=== PATIENT | female | born 1945 | race Caucasian/White ===

== ENCOUNTER 2016-08-24 18:09 | Observation (INO) ==
--- NOTE | 2016-08-24 18:56 | Emergency Department Note ---
Disposition Clinical Impression: Chest pain Disposition: Admitted As Inpatient Condition: Fair Chest Pain HPI - General Chief Complaint: ED Chest Pain Stated Complaint: CP, SOB Time Seen by Provider: 08/24/16 18:54 Source: patient Limitations: no limitations Vital Signs Reviewed: Yes Nursing Notes Reviewed: Yes - History of Present Illness HPI Narrative: Ms. Kaye, a 71yo female, presents from home by EMS with CC: STEPHON. Onset 2 days ago and progressive with sterna chest burning intermittant throughout today. Past medical history of COPD, oxygen dependent on 3 L via nasal cannula. History of recurrent AE COPD, bronchitis, pneumonia. Dyspnea worsened with mild exertion. Nothing noted to improve or worsen her chest pain. Patient has never had a cardiac workup to risk stratify. Denies nausea, vomiting, radiation of chest pain, history of or ACS or CAD. PMH: COPD, HLD. Habits: remote hx smokine = 40+ pk-yr. Severity scale (1-10): 7 - Related Data Home Medications Medication Instructions Recorded Confirmed Albuterol Neb [Proventil Neb] 2.5 mg IH TID 02/07/15 08/24/16 Albuterol Sulfate [Albuterol 2 puff IH Q4HR PRN 02/07/15 08/24/16 Inhaler] Tiotropium [Spiriva] 18 mcg IH DAILY 02/07/15 08/24/16 Citalopram Hydrobromide [Celexa] 20 mg PO DAILY 05/09/15 08/24/16 Acetylcysteine 600 mg PO BID 09/16/15 08/24/16 [Q-Goormr-f-Cysteine] Ibandronate Sodium 150 mg PO QMONTH 02/16/16 08/24/16 Alprazolam [Xanax] 0.5 mg PO BID 08/24/16 08/24/16 Aspirin Enteric Coated [Aspirin EC] 81 mg PO DAILY 08/24/16 08/24/16 Atorvastatin [Lipitor] 10 mg PO HS 08/24/16 08/24/16 Fluticasone/Salmeterol [Advair 1 each IH BID 08/24/16 08/24/16 500-50 Diskus] Oxygen 3 l NS CONT 08/24/16 08/24/16 PredniSONE 5 mg PO DAILY 08/24/16 08/24/16 Previous Rx's Medication Instructions Recorded Theophylline Anhydrous [Theodur] 300 mg PO BID #60 tab.er.12h 02/23/16 Amlodipine [Norvasc] 10 mg PO DAILY #60 tablet 08/26/16 Allergies Allergy/AdvReac Type Severity Reaction Status Date / Time No Known Allergies Allergy Verified 02/16/16 11:39 All systems ED: reviewed and negative except as stated. Constitutional: Denies: fever, chills, weakness Cardiovascular: Reports: chest pain, dyspnea on exertion. Denies: palpitations , syncope Respiratory: Denies: cough, dyspnea, wheezes Gastrointestinal: Denies: abdominal pain, nausea, vomiting, diarrhea, constipation, hematemesis, melena, hematochezia Genitourinary: Denies: urgency, dysuria, frequency Musculoskeletal: Denies: back pain Neurological: Denies: headache, weakness, numbness Chest Pain PMH - Past Medical History Medical history: Reports: COPD Surgical history: Reports: appendectomy, cholecystectomy, hysterectomy Psychiatric history: Reports: anxiety, depression PEARL STRINGER history: Reports: no PEARL STRINGER history - Social History Smoking Status: Former smoker Alcohol use: Reports: none Drug use: Reports: none Physical Exam General: Patient is alert, oriented, and in no acute distress. HEENT: No facial asymmetry. Head is normocephalic and atraumatic. Trachea midline. Cardiovascular: Heart regular rate and rhythm without clicks, rubs, gallops, or murmurs. No JVD. PMI nondisplaced. 1+ bilateral pedal edema. Bilateral radial and dorsalis pedis pulses 2+. Chest pain not reproducible palpation. Respiratory: Symmetric chest rise with poor respiratory effort. Prolonged expiratory phase. Bilateral breath sounds are clear without wheezing, crackles , or rhonchi. Abdomen: Bowel sounds present normoactive x-4 quadrants. Abdomen is soft, nondistended, and nontender. No organomegaly noted. Psych: Patient's affect is appropriate for situation. - General Limitations: no limitations General appearance: alert Course Course Narrative: Patient received 4 baby aspirin and a single sublingual nitroglycerin in route by EMS. During the time of interview, patient denies any chest pain. Patient's troponin . Labwork otherwise unremarkable. EKG and CXR unremarkable. Patient remains high risk given her COPD, age, exertional dyspnea , and chest burning. She has never had a CP workup to appropriately risk stratify her. After discussing with the patient and my attending, through shared decision making, will bring the patient into the hospital for continued workup for ACS rule out. Spoke with the hospitalist, Dr. Mishra, who agrees to see the patient. Vital Signs Temperature 98.6 F 08/24/16 18:13 Pulse Rate 92 08/24/16 18:13 Respiratory Rate 18 08/24/16 18:13 Blood Pressure 155/95 08/24/16 18:13 O2 Sat by Pulse Oximetry 96 08/24/16 18:13 Temperature 97.6 F 08/26/16 07:15 Pulse Rate 68 08/26/16 07:15 Respiratory Rate 18 08/26/16 09:58 Blood Pressure 127/71 08/26/16 07:15 O2 Sat by Pulse Oximetry 98 08/26/16 09:58 Oxygen Delivery Oxygen Delivery Nasal Cannula Chest Pain - Medical Records Medical records reviewed: Yes I reviewed the patient's medical records. - Lab Data Lab results reviewed: Yes I reviewed the patient's lab results. Result diagrams: 08/25/16 01:08 08/25/16 01:08 Lab Results 08/24/16 08/24/16 08/24/16 Range/Units 19:27 19:27 19:27 WBC 10.6 (4.3-11.1) K/mcL RBC 4.73 (3.82-4.97) M/mcL Hgb 13.0 (11.5-15.4) g/dL Hct 41.4 (35.3-44.9) % MCV 87.5 (83.0-100.0) fL MCH 27.5 L (28.0-33.3) pg MCHC 31.4 L (31.6-35.5) g/dL RDW 14.8 H (11.5-14.5) % Plt Count 347 (140-400) K/mcL MPV 10.2 (9.4-12.4) fL Immature Gran % 1.0 (0-4) % Seg Neutrophils % 60.0 % Lymphocytes % 27.7 % Monocytes % 8.3 % Eosinophils % 2.2 % Basophils % 0.8 % Neutrophils # 6.4 (1.6-8.9) K/mcL Lymphocytes # 2.9 (0.6-4.6) K/mcL Monocytes # 0.9 (0.0-1.3) K/mcL Eosinophils # 0.2 (0.0-0.6) K/mcL Basophils # 0.1 (0.0-0.2) K/mcL PT 11.5 (9.4-12.1) Seconds INR 1.1 APTT 29.5 (26.0-36.0) Seconds Sodium 144 (136-145) mEq/L Potassium 4.8 H (3.5-4.5) mEq/L Chloride 107 (98-109) mEq/L Carbon Dioxide 27 (19-29) mEq/L BUN 24 H (7-20) mg/dL Creatinine 1.17 H (0.57-1.11) mg/dL Est GFR ( Amer) 55 L (> 60) Est GFR (Non-Af Amer) 46 L (> 60) BUN/Creatinine Ratio 21 (6-26) Glucose 100 H (70-99) mg/dL Calculated Osmolality 302 H (280-300) Calcium 10.1 (8.6-10.8) mg/dL Troponin I (0-0.03) ng/mL 08/24/16 Range/Units 19:27 WBC (4.3-11.1) K/mcL RBC (3.82-4.97) M/mcL Hgb (11.5-15.4) g/dL Hct (35.3-44.9) % MCV (83.0-100.0) fL MCH (28.0-33.3) pg MCHC (31.6-35.5) g/dL RDW (11.5-14.5) % Plt Count (140-400) K/mcL MPV (9.4-12.4) fL Immature Gran % (0-4) % Seg Neutrophils % % Lymphocytes % % Monocytes % % Eosinophils % % Basophils % % Neutrophils # (1.6-8.9) K/mcL Lymphocytes # (0.6-4.6) K/mcL Monocytes # (0.0-1.3) K/mcL Eosinophils # (0.0-0.6) K/mcL Basophils # (0.0-0.2) K/mcL PT (9.4-12.1) Seconds INR APTT (26.0-36.0) Seconds Sodium (136-145) mEq/L Potassium (3.5-4.5) mEq/L Chloride (98-109) mEq/L Carbon Dioxide (19-29) mEq/L BUN (7-20) mg/dL Creatinine (0.57-1.11) mg/dL Est GFR ( Amer) (> 60) Est GFR (Non-Af Amer) (> 60) BUN/Creatinine Ratio (6-26) Glucose (70-99) mg/dL Calculated Osmolality (280-300) Calcium (8.6-10.8) mg/dL Troponin I 0.01 (0-0.03) ng/mL - EKG Data EKG attestation: Yes I reviewed and interpreted this EKG. EKG results narrative: EKG dated on August 2016 interpreted as sinus rhythm with a rate of 64. Normal intervals [place] 137, QRS 78, QT/QTC 390/399. Left axis with left anterior fascicular block. Rare PVC. Nonspecific ST-T changes. Compared to previous dated 02/16/2016 showing no acute ischemic changes a comparison. Attestation Statement - Attestation Attestation: I examined this patient and my medical decision-making was reviewed with the Resident Physician. I agree with the documented findings, disposition and treatment plan as described except to the extent set forth below. Chest pain free at time of admission.
[2016-08-24 19:38] LABS: Basophils # 0.1 K/mcL (0.0-0.2); Basophils % 0.8 %; Eosinophils # 0.2 K/mcL (0.0-0.6); Eosinophils % 2.2 %; Hematocrit 41.4 % (35.3-44.9); Lymphocytes # 2.9 K/mcL (0.6-4.6); Lymphocytes % 27.7 %; Mean Corpuscular HGB Conc 31.4 g/dL (31.6-35.5); Mean Corpuscular Hemoglobin 27.5 pg (28.0-33.3); Mean Corpuscular Volume 87.5 fL (83.0-100.0); Mean Platelet Volume 10.2 fL (9.4-12.4); Monocytes # 0.9 K/mcL (0.0-1.3); Monocytes % 8.3 %; Neutrophils # 6.4 K/mcL (1.6-8.9); Platelet Count 347 K/mcL (140-400); Red Blood Count 4.73 M/mcL (3.82-4.97); Red Cell Distribution Width 14.8 % (11.5-14.5)
[2016-08-24 19:42] LABS: INR 1.1; Prothrombin Time 11.5 Seconds (9.4-12.1)
[2016-08-24 19:44] LABS: Activated Partial Thrombo Time 29.5 Seconds (26.0-36.0)
[2016-08-24 19:46] LABS: Calcium 10.1 mg/dL (8.6-10.8); Potassium 4.8 mEq/L (3.5-4.5)
[2016-08-24] MEDS ORDERED: Nitroglycerin 0.4 MG TAB.SUBL SL PRN (20:43)
--- NOTE | 2016-08-24 23:04 | Internal Med History&Physical ---
Date of Encounter: 08/24/16 Time of Encounter: 10:30 Assessment and Plan (1) Chest pain Current visit: Yes Status: Acute History of precordial chest pain. Burning type. Could be from gastroesophageal reflux disease. However given patient's age and presence of similar symptoms in the past, she does have increased risk for coronary artery disease. Will trend troponins. Telemetry. Repeat EKG in the morning. Stress test if troponins are negative. Qualifiers: Chest pain type: precordial pain Qualified Code(s): R07.2 - Precordial pain (2) GERD (gastroesophageal reflux disease) Current visit: Yes Status: Acute Patient with symptoms suggestive of gastroesophageal reflux disease. Will treat with PPI. Qualifiers: Esophagitis presence: esophagitis presence not specified Qualified Code(s) : K21.9 - Gastro-esophageal reflux disease without esophagitis (3) COPD (chronic obstructive pulmonary disease) Current visit: No Status: Chronic Patient with COPD and chronic hypoxia on home oxygen. Not in acute exacerbation. Will use bronchodilator nebs as needed. Qualifiers: COPD type: emphysema Emphysema type: panlobular Qualified Code(s): J43.1 - Panlobular emphysema (4) HTN (hypertension) Current visit: Yes Status: Chronic Blood pressure is elevated. Patient does not appear to be on medications at home. Will start amlodipine. Qualifiers: Hypertension type: essential hypertension Qualified Code(s): I10 - Essential (primary) hypertension (5) Anxiety Current visit: No Status: Chronic Continue alprazolam and citalopram. Internal Medicine - H&P: HPI Chief complaint: Chest pain, shortness of breath Admitted From: Emergency Dept Plans for Post Hospital Care: Home History of present illness: Ms. Kaye is a 71 year old female with history of COPD and chronic hypoxic respiratory failure on home oxygen at 3 L/m presented to the ER with complaints of chest pain. Her symptoms have been going on since this morning. Pain is intermittent and located in the central chest region and feels like a burning sensation that radiates up towards into her chest. It is associated with abdominal bloating. Patient also has chronic shortness of breath due to her COPD. She has been on antibiotics since Monday for possible bronchitis. Denies any nausea or vomiting. No hematemesis. She does get occasional palpitations. No fever or chills or night sweats. She has had similar episodes of chest pain before but they have not lasted this long. Past Med Surg Social Fam HX - Past Medical History Attestation: Yes The following information was validated with the patient. Medical history: COPD Psychiatric history: anxiety, depression - Past Surgical History Surgical History: appendectomy, cholecystectomy, hysterectomy - Social History Smoking Status: Former smoker Smokeless Tobacco Status: No Alcohol use: none Drug use: none - Family History Mother Adopted: No Family Member Ethnicity: Non- Living Status: Hx Family Cardiac Disorders: No Hx Family Respiratory Disorders: No Hx Family Cancer: Yes Hx Family GI Disorders: No Hx Family Endocrine Disorder: No Hx Family Neuromuscular Disorders: No Hx Family Neurologic Disorders: No Hx Family HEENT Disorders: No Hx Family Autoimmune Disorders: No Father Living Status: Hx Family Cancer: Yes Brother Adopted: No Living Status: Hx Family Endocrine Disorder: Yes (dm) Internal Medicine - H&P: Meds Albuterol Neb [Proventil Neb] 2.5 mg IH TID 02/07/15 [History] Albuterol Sulfate [Albuterol Inhaler] 2 puff IH Q4HR PRN 02/07/15 [History] Tiotropium [Spiriva] 18 mcg IH DAILY 02/07/15 [History] Citalopram Hydrobromide [Celexa] 20 mg PO DAILY 05/09/15 [History] Acetylcysteine [M-Ztzryu-c-Cysteine] 600 mg PO BID 09/16/15 [History] Ibandronate Sodium 150 mg PO QMONTH 02/16/16 [History] Theophylline Anhydrous [Theodur] 300 mg PO BID #60 tab.er.12h 02/23/16 [Rx] Alprazolam [Xanax] 0.5 mg PO BID 08/24/16 [History] Aspirin Enteric Coated [Aspirin EC] 81 mg PO DAILY 08/24/16 [History] Atorvastatin [Lipitor] 10 mg PO HS 08/24/16 [History] Fluticasone/Salmeterol [Advair 500-50 Diskus] 1 each IH BID 08/24/16 [History] Oxygen 3 l NS CONT 08/24/16 [History] PredniSONE 5 mg PO DAILY 08/24/16 [History] Allergies No Known Allergies Allergy (Verified 02/16/16 11:39) All Systems PM: A 10-system review of systems was performed and is negative for pertinent findings except as documented above in the HPI. - Constitutional Constitutional: no chills, no fever(s), no night sweats - EENT Eyes: no change in vision, no discharge, no pain, no photophobia Ears: no ear discharge, no ear pain, no tinnitus Nose, mouth and throat: no dysphagia, no nasal discharge, no neck pain, no sore throat - Cardiovascular Cardiovascular ROS IM: chest pain, no diaphoresis, no dyspnea, no lightheadedness, no palpitations, no syncope - Respiratory Respiratory: cough, dyspnea on exertion, no dyspnea, no wheezing, no excessive phlegm production - Gastrointestinal Gastrointestinal: belching, no abdominal pain, no diarrhea, no hematemesis, no hematochezia, no melena, no nausea, no vomiting - Genitourinary Genitourinary: no change in urinary stream, no dysuria, no flank pain, no hematuria - Musculoskeletal Musculoskeletal ROS IM: no numbness, no tingling - Integumentary Integumentary IM: no rash, no unusual bruising - Neurological Neurological ROS: no confusion, no convulsions, no focal weakness, no numbness, no tingling, no tremor(s) - Hematologic/Lymphatic Hematologic/Lymphatic: no easy bruising - Constitutional Vitals: Temp Pulse Resp BP Pulse Ox 97.8 F 66 12 174/88 96 08/24/16 22:05 08/24/16 22:05 08/24/16 22:05 08/24/16 22:05 08/24/16 22:05 General appearance: Present: cooperative, mild distress, A&O X 3, pleasant, answers questions appropriately - Eye Eye exam: Present: EOMI, PERRL, conjuntiva pink, sclera anicteric - Neck Neck exam general surgery: Present: supple, trachea midline. Absent: lymphadenopathy - Respiratory Respiratory exam: Present: CTAB, prolonged expiratory phase. Absent: accessory muscle use, rales, rhonchi, wheezes - Cardiovascular Cardiovascular exam: Present: RRR, +S1, +S2. Absent: diastolic murmur, gallop, rubs, systolic murmur - GI/Abdominal GI/Abdominal exam: Present: normal bowel sounds, soft, no peritoneal signs. Absent: distended, tenderness - Extremities Exam Extremities exam: Present: warm, radial pulses palpable and symetrical. Absent : calf tenderness, cyanotic, pedal edema - Neurological Exam Neurological exam: Present: alert, CN II-XII intact, oriented X3, no focal deficits, strengths equal and symetr throughout. Absent: facial droop, speech deficit - Skin Skin exam: Present: dry, intact Internal Med - H&P Results - Labs CBC & Chem 7: 08/24/16 19:27 08/24/16 19:27 - EKG Data -: EKG Interpreted by Myself EKG shows normal: sinus rhythm - EKG Data Interpretation IM: normal EKG - Impressions Chest x-ray showed COPD changes without any infiltrates - Attending Attestation This document has been at least partially created by [employer] recognition technology by Dr. Hickman. Errors in grammar, wording or other phrases may exist. If errors are found after the documentation is signed, they will be addressed individually in the addendum section of this document when appropriate.
[2016-08-24] MEDS ORDERED: Ipratropium/Albuterol Neb 3 ML IH PRN (23:11)
[2016-08-24] MEDS ORDERED: Mag Hydrox/Al Hydrox/Simeth 30 ML UDC PO PRN (23:37)
[2016-08-24] MEDS: amLODIPine 5 MG TABLET PO SCH (23:57)
[2016-08-24] MEDS: 0.9 % Sodium Chloride 1,000 ML IVC SCH (23:57)
[2016-08-25 01:26] LABS: Basophils # 0.1 K/mcL (0.0-0.2); Basophils % 0.8 %; Eosinophils # 0.5 K/mcL (0.0-0.6); Eosinophils % 4.1 %; Hematocrit 37.6 % (35.3-44.9); Hemoglobin 12.1 g/dL (11.5-15.4); Immature Granulocytes % 0.8 % (0-4); Lymphocytes # 3.6 K/mcL (0.6-4.6); Lymphocytes % 31.4 %; Mean Corpuscular HGB Conc 32.2 g/dL (31.6-35.5); Mean Corpuscular Hemoglobin 28.5 pg (28.0-33.3); Mean Corpuscular Volume 88.7 fL (83.0-100.0); Mean Platelet Volume 10.4 fL (9.4-12.4); Monocytes # 1.1 K/mcL (0.0-1.3); Monocytes % 9.2 %; Neutrophils # 6.1 K/mcL (1.6-8.9); Platelet Count 310 K/mcL (140-400); Red Blood Count 4.24 M/mcL (3.82-4.97); Red Cell Distribution Width 14.8 % (11.5-14.5); Segmented Neutrophils % 53.7 %
[2016-08-25 01:43] LABS: BUN/Creatinine Ratio 26 (6-26); Blood Urea Nitrogen 24 mg/dL (7-20); Calcium 9.7 mg/dL (8.6-10.8); Carbon Dioxide 25 mEq/L (19-29); Chloride 107 mEq/L (98-109); Chol/HDL Ratio 3.2 (0-4.9); Cholesterol 137 mg/dL (< 200); Glucose 115 mg/dL (70-99); HDL Cholesterol 43 mg/dL (40-59); LDL Cholesterol,Calculated 55 mg/dL (0-99); Osmolality,Calculated 297 (280-300); Sodium 141 mEq/L (136-145); Triglycerides 195 mg/dL (< 150); eGFR For African Americans > 60 (> 60); eGFR For Non-African Americans 60 (> 60)
[2016-08-25] MEDS: Pantoprazole 40 MG VIAL IVP SCH ×2 (03:48→18:04)
[2016-08-25] MEDS ORDERED: Regadenoson 0.4 MG/5 ML SYRINGE IVP ONE (06:37)
[2016-08-25] MEDS: Tiotropium 18 MCG inhalation IH SCH (08:20)
[2016-08-25] MEDS: predniSONE 5 MG TABLET PO SCH (10:40)
[2016-08-25] MEDS: amLODIPine 5 MG TABLET PO SCH (10:40)
[2016-08-25] MEDS: Aspirin 81 MG TAB.CHEW PO SCH (10:40)
[2016-08-25] MEDS: ALPRAZolam 1 MG TABLET PO SCH ×2 (10:40→21:02)
[2016-08-25] MEDS: *HR* Acetylcysteine 20% 600 MG/3 ML ORAL SYRINGE PO SCH ×2 (10:40→21:02)
--- NOTE | 2016-08-25 10:49 | Electrocardiograph Report ---
[address] [place] [address] Test Date: 2016-08-24 Pat Name: Kimberly Kaye Department: 103 Room: 3B46 Gender: F Liquefaction Supervisor: : 1945 Requested By: Abrahan Jordan Order Number: [id number] Reading MD: Kumar Ray MD Measurements Intervals [place] Rate: 64 P: 36 CA: 137 QRS: -48 QRSD: 78 T: 66 QT: 390 QTc: 399 Interpretive Statements SINUS RHYTHM WITH OCCASIONAL SUPRAVENTRICULAR PREMATURE COMPLEXES LEFT ANTERIOR FASCICULAR BLOCK Poor R wave progression BASELINE ARTIFACT Electronically Signed On 08-25-2016 10:47:30 EST by Kumar Ray MD
--- NOTE | 2016-08-25 11:10 | Electrocardiograph Report ---
[address] [place] [address] Test Date: 2016-08-25 Pat Name: Kimberly Kaye Department: 113 Room: 3B46 Gender: F Bisque Cleaner: : 1945 Requested By: Mary Beth Hickman Order Number: [id number] Reading MD: Kumar Ray MD Measurements Intervals [place] Rate: 60 P: 49 NH: 125 QRS: -8 QRSD: 91 T: 83 QT: 504 QTc: 504 Interpretive Statements SINUS RHYTHM WITH SINUS ARRHYTHMIA PROLONGED QT INTERVAL Electronically Signed On 08-25-2016 11:08:45 EST by Kumar Ray MD
--- NOTE | 2016-08-25 11:23 | Nuclear Medicine Stress Report ---
Regadenoson Nuclear Stress Name: Kimberly Kaye Date of Study: 08/25/2016 Date: 1945 Ht: 66.0 in Medical Record#: [id number] Age: 71 Wt: 166.0 lb Gender: Female Order #: [id number] Location: [facility] Room: [facility] [place] Supervising Provider: Artem Matta CNP Reading Physician: Cedrick Strickland MD, [facility] Ordering Physician: Brisa Del Cid CNP Primary Care Physician: Ronel Arce MD Stress Technologist: Allie Huber SAL[employer],[facility] [place] Breaker Layer: James Henriquez Indications: Shortness of breath, Chest Pain Impression: No significant ECG changes with regadenoson. Gated LVEF > 70%. Perfusion imaging was negative for ischemia or infarct. History: Hypertension Hypercholesteremia Stress Test Summary: Stress Test Type: Pharmacologic Regadenoson 0.4mg/5ml given IV Baseline Information: Initial Heart Rate: 63 Blood Pressure: 134/80 Stress Information: Test Terminated Due to (primary): As per protocol Maximum Blood Pressure: 128/56 Maximum Heart Rate: 93 Percent Maximum Heart Rate Achieved: 62 Double Product: 13240 Symptoms: Shortness of breath Nuclear Summary: SPECT myocardial perfusion imaging using Tc99m Sestamibi given intravenously was performed at rest and following cardiac stress testing. The resting images were obtained following initial dose of 11.9 mCi. Following stress an additional dose of 35.3 mCi was given at peak exercise or 30 seconds post regadenoson infusion. Findings: Stress Note * Resting ECG demonstrated normal sinus rhythm. * No baseline arrhythmias were noted. * Patient had no chest pain during stress. * No arrhythmias were noted during stress. * No significant ECG changes with regadenoson. Hemodynamic responses * Normal hemodynamic responses to pharmacologic stress. Study Quality * Study quality is good. Gated EF > 70% * Gated LVEF > 70%. Left Ventricle * The left ventricle is not dilated. * Normal Segmental Perfusion in rest. * Normal segmental perfusion in stress. TID * No evidence of transient ischemic dilatation. Updated by Cedrick Strickland MD, [facility] on 08/25/2016 11:18:14 AM electronically signed on 08/25/2016 11:18:33 AM with status of Final
[2016-08-25] MEDS ORDERED: Albuterol 2.5 MG/3 ML NEBULIZER ONE (11:41)
[2016-08-25] MEDS: Albuterol 2.5 MG/3 ML NEBULIZER IH SCH ×3 (11:42→23:16)
[2016-08-25] MEDS: 0.9 % Sodium Chloride 1,000 ML IVC SCH ×2 (13:10→23:52)
--- NOTE | 2016-08-25 15:26 | Internal Med Progress Note ---
Date of Encounter: 08/25/16 Time of Encounter: 12:00 - Assessment and plan (1) Chest pain Current Visit: Yes Status: Acute Assessment and plan: Patient complaining of burning to her epigastric area and mild chest pain. She denies shortness of breath above her norm. Chest x-ray consistent with chronic COPD. Troponins negative. Stress test negative for ischemia or infarct and revealed an ejection fraction greater than 70%. Acute coronary syndrome ruled out. Patient had an echocardiogram on 04/18/16 which revealed ejection fraction 65%, mild LVH, mild diastolic dysfunction and was otherwise unremarkable. Patient also had carotid duplex on 04/18/16 with right sided minimal plaque, left side 60-79% stenosis with recommendation to repeat a scan in one year. Unclear etiology for chest pain at this time. She denies shortness of breath above her norm. Chest pain is mildly reproducible with palpation. Possible epigastric etiology however the patient is tolerating a regular diet and can follow up outpatient if further investigation is warranted. We will perform viral panel studies. Qualifiers: Chest pain type: precordial pain Qualified Code(s): R07.2 - Precordial pain (2) GERD (gastroesophageal reflux disease) Current Visit: Yes Status: Chronic Qualifiers: Esophagitis presence: esophagitis presence not specified Qualified Code(s) : K21.9 - Gastro-esophageal reflux disease without esophagitis (3) HTN (hypertension) Current Visit: Yes Status: Chronic Assessment and plan: Borderline hypertensive since presentation. Patient is not on any antihypertensive medications at home, amlodipine has been initiated. We will continue to trend. Qualifiers: Hypertension type: essential hypertension Qualified Code(s): I10 - Essential (primary) hypertension (4) Acute bronchitis Current Visit: No Status: Acute Assessment and plan: Respiratory viral panel pending. Patient on 3 L per nasal cannula continuously at home, no increased need for oxygen at this time. Qualifiers: Bronchitis organism: other organism Qualified Code(s): J20.8 - Acute bronchitis due to other specified organisms (5) COPD (chronic obstructive pulmonary disease) Current Visit: No Status: Chronic Assessment and plan: No acute exacerbation. Patient denies shortness of breath above her norm. 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 On examination, he is resting supine in bed. Patient states she feels fatigued. Patient stating "it is not my lungs this time and must be my heart." Patient complaining of epigastric burning and mild chest pain. She states she has had a regular appetite. - Constitutional Vitals: Temp Pulse Resp BP Pulse Ox 97.5 F L 66 16 160/75 92 L 08/25/16 10:49 08/25/16 10:49 08/25/16 11:45 08/25/16 10:49 08/25/16 11:45 General appearance: Present: cooperative, mild distress (chronic dyspnea), A&O X 3, pleasant, answers questions appropriately - Head Head exam: Present: atraumatic, normocephalic - Eye Eye exam: Present: PERRL, conjuntiva pink, sclera anicteric Pupils: Present: PERRL - Neck Neck exam general surgery: Present: supple, trachea midline. Absent: lymphadenopathy - Respiratory Respiratory exam: Present: accessory muscle use, decreased breath sounds, respiratory distress (chronic; mild). Absent: CTAB, rales, rhonchi, wheezes - Cardiovascular Cardiovascular exam: Present: RRR, +S1, +S2. Absent: diastolic murmur, gallop, rubs, systolic murmur - GI/Abdominal GI/Abdominal exam: Present: normal bowel sounds, soft, tenderness (epigastric), no peritoneal signs. Absent: distended - Extremities Exam Extremities exam: Present: warm, radial pulses palpable and symetrical. Absent : calf tenderness, cyanotic, pedal edema - Neurological Exam Neurological exam: Present: alert, CN II-XII intact, normal gait, oriented X3, no focal deficits, strengths equal and symetr throughout. Absent: pronater drift, facial droop, speech deficit - Skin Skin exam: Present: dry, intact, pallor, warm Internal Medicine: Result - Labs CBC & Chem 7: 08/25/16 01:08 08/25/16 01:08 Labs: Short CBC 08/25/16 Range/Units 01:08 WBC 11.4 H (4.3-11.1) K/mcL Hgb 12.1 (11.5-15.4) g/dL Hct 37.6 (35.3-44.9) % Plt Count 310 (140-400) K/mcL Neutrophils # 6.1 (1.6-8.9) K/mcL BMP 08/25/16 01:08 Sodium 141 Potassium 4.0 Chloride 107 Carbon Dioxide 25 BUN 24 H Creatinine 0.93 Glucose 115 H Calcium 9.7 Cardiac Enzymes 08/25/16 Range/Units 01:08 Troponin I 0.00 (0-0.03) ng/mL - ABG Interpretation ABG results: PT/INR, D-dimer PT 11.5 Seconds (9.4-12.1) 08/24/16 19:27 Consult Discharge Plan - Plan Referrals: Ronel Arce MD [Primary Care Provider] -
[2016-08-25] MEDS ORDERED: NON-FORMULARY MEDICATION 1 EACH EACH (Oxygen [Oxygen] 3 L) NS SCH (15:45)
[2016-08-25] MEDS ORDERED: *HR* Promethazine 25 MG/ML VIAL IVP PRN (15:48)
[2016-08-25] MEDS ORDERED: Ondansetron 4 MG/2 ML VIAL IVP PRN (15:48)
[2016-08-25 17:46] LABS: Bilirubin,Urine Negative (Negative); Blood,Urine Negative (Negative); Clarity,Urine Clear (Clear); Color,Urine Yellow (Yellow); Glucose,Urine (UA) Normal (Normal); Ketones,Urine Negative (Negative); Leukocyte Esterase,Urine Negative (Negative); Nitrite,Urine Negative (Negative); Protein,Urine Negative (Neg-Trace); Specific Gravity,Urine 1.009 (1.010-1.025); Urobilinogen,Urine Normal (Normal)
[2016-08-25] MEDS ORDERED: Pantoprazole 40 MG VIAL IVP SCH (23:37)
[2016-08-26] MEDS: Pantoprazole 40 MG VIAL IVP SCH (06:12)
[2016-08-26 07:16] VITALS: BP 127/71
[2016-08-26 08:38] LABS: Adenovirus Not Detected (Not Detect); Bordetella Pertussis Not Detected (Not Detect); Chlamydophila pneumoniae Not Detected (Not Detect); Coronavirus 229E Not Detected (Not Detect); Coronavirus HKU1 Not Detected (Not Detect); Coronavirus NL63 Not Detected (Not Detect); Coronavirus OC43 Not Detected (Not Detect); Human Metapneumovirus Not Detected (Not Detect); Human Rhinovirus/Enterovirus Not Detected (Not Detect); Influenza A Subtype 2009 H1 Not Detected (Not Detect); Influenza A Untypeable Not Detected (Not Detect); Influenza B Not Detected (Not Detect); Mycoplasma pneumoniae Not Detected (Not Detect); Parainfluenza Virus 1 Not Detected (Not Detect); Parainfluenza Virus 2 Not Detected (Not Detect); Parainfluenza Virus 3 Not Detected (Not Detect); Parainfluenza Virus 4 Not Detected (Not Detect); Respiratory Syncytial Virus Not Detected (Not Detect)
[2016-08-26] MEDS: 0.9 % Sodium Chloride 1,000 ML IVC SCH (09:49)
[2016-08-26] MEDS: ALPRAZolam 1 MG TABLET PO SCH (09:50)
[2016-08-26] MEDS: amLODIPine 5 MG TABLET PO SCH (09:51)
[2016-08-26] MEDS: Aspirin 81 MG TAB.CHEW PO SCH (09:51)
[2016-08-26] MEDS: predniSONE 5 MG TABLET PO SCH (09:51)
[2016-08-26] MEDS: *HR* Acetylcysteine 20% 600 MG/3 ML ORAL SYRINGE PO SCH (09:58)
[2016-08-26] MEDS: Albuterol 2.5 MG/3 ML NEBULIZER IH SCH (09:58)
[2016-08-26] MEDS: Tiotropium 18 MCG inhalation IH SCH (09:58)
--- NOTE | 2016-08-26 10:18 | Discharge Summary ---
Date of Encounter: 08/26/16 Time of Encounter: 09:00 - Discharge Diagnosis (1) Chest pain Priority: Primary Status: Resolved Comments: Patient denied chest pain or shortness of breath above her norm on day of discharge. Chest x-ray consistent with chronic COPD. Troponins negative. Stress test negative for ischemia or infarct and revealed an ejection fraction greater than 70%. Acute coronary syndrome ruled out. Patient had an echocardiogram on 04/18/16 which revealed ejection fraction 65%, mild LVH, mild diastolic dysfunction and was otherwise unremarkable. Patient also had carotid duplex on 04/18/16 with right sided minimal plaque, left side 60-79% stenosis with recommendation to repeat a scan in one year. Followup outpatient. Qualifiers: Chest pain type: precordial pain Qualified Code(s): R07.2 - Precordial pain (2) GERD (gastroesophageal reflux disease) Priority: Secondary Status: Chronic Qualifiers: Esophagitis presence: esophagitis presence not specified Qualified Code(s) : K21.9 - Gastro-esophageal reflux disease without esophagitis (3) HTN (hypertension) Priority: Secondary Status: Chronic Comments: Borderline hypertensive during the first day of her admission. She was not on any antihypertensive medications at home and was started on amlodipine- normotensive on day of discharge. Recommend daily blood pressure checks at home , keeping a log, and following up outpatient. Qualifiers: Hypertension type: essential hypertension Qualified Code(s): I10 - Essential (primary) hypertension (4) Acute bronchitis Priority: Primary Status: Acute Qualifiers: Bronchitis organism: other organism Qualified Code(s): J20.8 - Acute bronchitis due to other specified organisms (5) COPD (chronic obstructive pulmonary disease) Priority: Secondary Status: Chronic Comments: No acute exacerbation Qualifiers: COPD type: emphysema Emphysema type: unspecified Qualified Code(s): J43.9 - Emphysema, unspecified (6) DVT prophylaxis Priority: Primary Status: Acute Comments: IPC's ordered while admitted (7) Anxiety Priority: Secondary Status: Chronic (8) Chronic respiratory failure Priority: Secondary Status: Chronic Qualifiers: Respiratory failure complication: hypoxia Qualified Code(s): J96.11 - Chronic respiratory failure with hypoxia (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 Comments: TSH normal (10) ARNOLDO (acute kidney injury) Priority: Primary Status: Resolved - Discharge Medications Prescriptions: Amlodipine [Norvasc] 10 mg PO DAILY #60 tablet Home Medications: Albuterol Neb [Proventil Neb] 2.5 mg IH TID 02/07/15 [History] Albuterol Sulfate [Albuterol Inhaler] 2 puff IH Q4HR PRN 02/07/15 [History] Tiotropium [Spiriva] 18 mcg IH DAILY 02/07/15 [History] Citalopram Hydrobromide [Celexa] 20 mg PO DAILY 05/09/15 [History] Acetylcysteine [R-Bdudhf-v-Cysteine] 600 mg PO BID 09/16/15 [History] Ibandronate Sodium 150 mg PO QMONTH 02/16/16 [History] Theophylline Anhydrous [Theodur] 300 mg PO BID #60 tab.er.12h 02/23/16 [Rx] Alprazolam [Xanax] 0.5 mg PO BID 08/24/16 [History] Aspirin Enteric Coated [Aspirin EC] 81 mg PO DAILY 08/24/16 [History] Atorvastatin [Lipitor] 10 mg PO HS 08/24/16 [History] Fluticasone/Salmeterol [Advair 500-50 Diskus] 1 each IH BID 08/24/16 [History] Oxygen 3 l NS CONT 08/24/16 [History] PredniSONE 5 mg PO DAILY 08/24/16 [History] Amlodipine [Norvasc] 10 mg PO DAILY #60 tablet 08/26/16 [Rx] Allergies/Adverse Reactions: Allergies No Known Allergies Allergy (Verified 02/16/16 11:39) Procedures/tests Complete & Pending: Procedures Performed prior 72 hours Category Date Time Status NM chuyita perf SPECT multi [NM] Routine Exams 08/24/16 23:11 Taken SP pharm nuclear stress Routine Y 08/25/16 07:45 Completed Date of admission: 08/24/16 20:55 Primary care physician: Ronel Arce Discharging clinician: Brisa Del Cid Anticipated date of discharge: 08/26/16 - Patient Status Disposition: Home, Self-Care Condition: Fair Functional capacity at discharge: independent ambulation Overall status at discharge: patient is back to baseline - Discharge Instructions Follow Up With: Ronel Arce MD [Primary Care Provider] - 09/02/16 10:45 am Additional Instructions: Follow-up with primary care provider as scheduled - Diet and Activity Activity: increase activity as tolerated Diet: low fat, low cholesterol, low salt diet Hospital course: Ms. Kaye is a 71 year old female with past medical history of advanced COPD on 3 L per nasal cannula continuously at home, anxiety, depression, status post appendectomy, cholecystectomy, hysterectomy, former tobacco abuse. Patient presented to the emergency department with a chief complaint of chest pain. Patient stating symptoms started on the morning of presentation. She stated the pain was intermittent and located centrally in her chest and felt like a burning sensation that radiates up into her chest. Associated symptoms include abdominal bloating. Patient denied shortness of breath above her norm. Patient stating she will have been on antibiotics since the Monday prior to presentation for possible bronchitis. She denied any nausea or vomiting or any hematemesis. Patient stating she has had chest pain like this before but has not lasted this long. Workup in the emergency department unremarkable other than hypertension. Chest x-ray consistent with chronic COPD. Patient was admitted to the hospitalist service for further evaluation and management. Patient had been hypertensive since presentation to the hospital and she was started on amlodipine as she is not on any antihypertensive medications at home. Troponins were negative. Patient had a nuclear stress test was negative for ischemia or infarct and revealed an ejection fraction greater than 70%. ACS ruled out. Patient had an echocardiogram on 04/18/16 which revealed ejection fraction 65%, mild LVH, mild diastolic dysfunction and was otherwise unremarkable. Patient also had carotid duplex on 04/18/16 with right sided minimal plaque, left side 60-79% stenosis with recommendation to repeat a scan in one year. Patient denies shortness of breath above her norm throughout this admission and she did not require supplemental oxygenation above her norm. Respiratory viral panel negative. Urinalysis negative. Patient had mild acute kidney injury upon presentation which resolved suggestive of mild dehydration upon presentation. Patient was able to tolerate a regular diet while admitted. She was discharged home in stable condition with close outpatient follow-up recommended. ITS Impressions Chest X-Ray 08/24/16 18:55 IMPRESSION: COPD. No acute abnormalities D/ / Arturo Hamm MD / Arturo Hamm MD Interpreting Provider: Arturo Hamm MD Nuclear stress test impression: No significant ECG changes with Regadenoson. Gated LVEF greater than 70%. Perfusion imaging was negative for ischemia or infarct. - Time Spent with Patient Total time spent providing and/or coordinating discharge services: - Constitutional Vitals: Temp Pulse Resp BP Pulse Ox 97.6 F 68 18 127/71 97 08/26/16 07:15 08/26/16 07:15 08/26/16 07:15 08/26/16 07:15 08/26/16 07:15 General appearance: Present: cooperative, mild distress (chronic dyspnea), A&O X 3, pleasant, answers questions appropriately - Head Head exam: Present: atraumatic, normocephalic - Eye Eye exam: Present: PERRL, conjuntiva pink, sclera anicteric Pupils: Present: PERRL - Neck Neck exam general surgery: Present: supple, trachea midline. Absent: lymphadenopathy - Respiratory Respiratory exam: Present: accessory muscle use, decreased breath sounds, prolonged expiratory phase, respiratory distress (mild; chronic). Absent: rales , rhonchi, wheezes - Cardiovascular Cardiovascular exam: Present: RRR, +S1, +S2. Absent: diastolic murmur, gallop, rubs, systolic murmur - GI/Abdominal GI/Abdominal exam: Present: normal bowel sounds, soft, no peritoneal signs. Absent: distended, tenderness - Extremities Exam Extremities exam: Present: warm, radial pulses palpable and symetrical. Absent : calf tenderness, cyanotic, pedal edema - Neurological Exam Neurological exam: Present: alert, CN II-XII intact, normal gait, oriented X3, no focal deficits, strengths equal and symetr throughout. Absent: pronater drift, facial droop, speech deficit - Skin Skin exam: Present: dry, intact, normal color, warm
== END 2016-08-26 12:14 | disposition home or self-care (01) ==
LOC: EMEROO 18:09 → 3BNU 18:09
PROVIDERS: ADMIT Internal Medicine; ATTEND Nurse Practitioner Family

== ENCOUNTER 2016-09-13 15:49 | Observation (INO) ==
--- NOTE | 2016-09-13 15:52 | Emergency Department Note ---
Disposition Clinical Impression: Acute exacerbation of chronic obstructive airways disease Disposition: Admitted As Inpatient Referrals: Ronel Arce MD [Primary Care Provider] - Forms: ED Satisfaction Letter SOB HPI - General Chief Complaint: ED Shortness of Breath/Dyspnea Stated Complaint: copd/jason Time Seen by Provider: 09/13/16 15:51 Source: patient, EMS Mode of arrival: EMS Nursing Notes Reviewed: Yes Vital Signs Reviewed: Yes - History of Present Illness Pt Subjective Complaint: shortness of breath, cough Onset (ago): day(s) (3) Severity: moderate Consistency/Duration: intermittent, gradually worsening Improves with: oxygen, rest, bronchodilators Worsens with: exertion Known history of: COPD Associated symptoms: Reports: cough, wheezing. Denies: fever Treatment prior to arrival: oxygen, bronchodilator - Related Data Home Medications Medication Instructions Recorded Confirmed Albuterol Neb [Proventil Neb] 2.5 mg IH TID 02/07/15 08/24/16 Albuterol Sulfate [Albuterol 2 puff IH Q4HR PRN 02/07/15 08/24/16 Inhaler] Tiotropium [Spiriva] 18 mcg IH DAILY 02/07/15 08/24/16 Citalopram Hydrobromide [Celexa] 20 mg PO DAILY 05/09/15 08/24/16 Acetylcysteine 600 mg PO BID 09/16/15 08/24/16 [Z-Kdanyb-g-Cysteine] Ibandronate Sodium 150 mg PO QMONTH 02/16/16 08/24/16 Alprazolam [Xanax] 0.5 mg PO BID 08/24/16 08/24/16 Aspirin Enteric Coated [Aspirin EC] 81 mg PO DAILY 08/24/16 08/24/16 Atorvastatin [Lipitor] 10 mg PO HS 08/24/16 08/24/16 Fluticasone/Salmeterol [Advair 1 each IH BID 08/24/16 08/24/16 500-50 Diskus] Oxygen 3 l NS CONT 08/24/16 08/24/16 PredniSONE 5 mg PO DAILY 08/24/16 08/24/16 Previous Rx's Medication Instructions Recorded Theophylline Anhydrous [Theodur] 300 mg PO BID #60 tab.er.12h 02/23/16 Amlodipine [Norvasc] 10 mg PO DAILY #60 tablet 08/26/16 Allergies Allergy/AdvReac Type Severity Reaction Status Date / Time No Known Allergies Allergy Verified 02/16/16 11:39 All systems ED: reviewed and negative except as stated. Constitutional: Reports: weakness. Denies: fever, chills Cardiovascular: Denies: chest pain Respiratory: Reports: cough, wheezes Gastrointestinal: Denies: nausea, vomiting Past Medical History - Past Medical History Source: patient, old records reviewed, nursing notes reviewed Medical history: Reports: COPD Surgical history: Reports: appendectomy, cholecystectomy, hysterectomy Psychiatric history: Reports: anxiety, depression [employer] SAL[employer] REPRESENTATIVE history: Reports: no [employer] SAL[employer] REPRESENTATIVE history - Social History Smoking Status: Former smoker Smokeless Tobacco Status: No Alcohol use: Reports: none Drug use: Reports: none Physical Exam - General Limitations: no limitations General appearance: alert, in no apparent distress - Head Head exam: atraumatic, normocephalic, normal inspection - Eye Eye exam: Present: normal appearance, PERRL, EOMI - Expanded Eye Exam Pupils: Left: reactive - ENT ENT exam: normal exam, normal oropharynx, mucous membranes moist - Expanded ENT Exam External ear exam: Present: normal external inspection Mouth exam: Present: normal external inspection Teeth exam: Present: normal inspection Throat exam: Present: normal inspection - Neck Neck exam: Present: normal inspection, full ROM, trachea midline - Chest Chest inspection: Present: normal inspection, symmetric chest wall rise - Respiratory Respiratory exam: Present: prolonged expiratory phase. Absent: normal lung sounds bilaterally - Cardiovascular Cardiovascular exam: Present: regular rate, normal rhythm, normal heart sounds - Abdominal Exam Abdominal exam: Present: soft, Non-Tender. Absent: tenderness, distention, guarding, rebound, rigidity - Extremities Exam Extremities exam: Present: normal inspection, full ROM. Absent: tenderness, pedal edema - Expanded Upper Extremity Exam Shoulder exam: Present: normal inspection, full ROM Arm exam: Present: normal inspection, full ROM Elbow exam: Present: normal inspection, full ROM Forearm/Wrist exam: Present: normal inspection, full ROM Hand exam: Present: normal inspection, full ROM Vascular exam: Normal: capillary refill, radial pulse - Expanded Lower Extremity Exam Hip/Pelvis exam: Present: normal inspection, full ROM Upper leg exam: Present: normal inspection, full ROM Knee exam: Present: normal inspection, full ROM Lower leg exam: Present: normal inspection, full ROM Ankle exam: Present: normal inspection, full ROM Foot/toe exam: Present: normal inspection, full ROM Neurovascular/Tendon exam: Absent: motor deficit, sensory deficit, tendon deficit - Back Exam Back exam: Present: normal inspection, full ROM. Absent: tenderness - Neurological Exam Neurological exam: Present: alert, oriented X3 - Expanded Neurological Exam Patient oriented to: Present: person, place, time Coma Scale Eye Opening: Spontaneous Coma Scale Motor Response: Obeys Commands Coma Scale Verbal Response: Oriented Coma Scale Total: 15 - Psychiatric Psychiatric exam: Present: normal affect, normal mood - Skin Skin exam: Present: warm, dry, intact, normal color Course Vital Signs Temperature 97.9 F 09/13/16 15:51 Pulse Rate 84 09/13/16 15:51 Respiratory Rate 22 09/13/16 15:51 Blood Pressure 133/90 09/13/16 15:51 O2 Sat by Pulse Oximetry 96 09/13/16 15:51 Temperature 97.9 F 09/13/16 15:51 Pulse Rate 84 09/13/16 15:51 Respiratory Rate 22 09/13/16 15:51 Blood Pressure 133/90 09/13/16 15:51 O2 Sat by Pulse Oximetry 96 09/13/16 15:51 Oxygen Delivery Oxygen Delivery Nasal Cannula Shortness of Breath/Dyspnea - Differential Diagnosis Likely: acute exacerbation of chronic obstructive airways disease, congestive heart failure, pneumonia, pulmonary embolism, pneumothorax, arrhythmia - Medical Records Medical records reviewed: Yes I reviewed the patient's medical records. - Lab Data Lab results reviewed: Yes I reviewed the patient's lab results. Result diagrams: 09/13/16 16:38 09/13/16 16:38 Lab Results 09/13/16 09/13/16 09/13/16 Range/Units 16:38 16:38 16:38 WBC 13.5 H (4.3-11.1) K/mcL RBC 4.70 (3.82-4.97) M/mcL Hgb 13.0 (11.5-15.4) g/dL Hct 41.6 (35.3-44.9) % MCV 88.5 (83.0-100.0) fL MCH 27.7 L (28.0-33.3) pg MCHC 31.3 L (31.6-35.5) g/dL RDW 14.5 (11.5-14.5) % Plt Count 341 (140-400) K/mcL MPV 10.2 (9.4-12.4) fL Immature Gran % 1.5 (0-4) % Seg Neutrophils % 65.1 % Lymphocytes % 23.3 % Monocytes % 6.6 % Eosinophils % 2.7 % Basophils % 0.8 % Neutrophils # 8.8 (1.6-8.9) K/mcL Lymphocytes # 3.1 (0.6-4.6) K/mcL Monocytes # 0.9 (0.0-1.3) K/mcL Eosinophils # 0.4 (0.0-0.6) K/mcL Basophils # 0.1 (0.0-0.2) K/mcL PT 12.3 H (9.4-12.1) Seconds INR 1.1 APTT 29.5 (26.0-36.0) Seconds Sodium 140 (136-145) mEq/L Potassium 4.5 (3.5-4.5) mEq/L Chloride 102 (98-109) mEq/L Carbon Dioxide 27 (19-29) mEq/L BUN 16 (7-20) mg/dL Creatinine 1.15 H (0.57-1.11) mg/dL Est GFR ( Amer) 57 L (> 60) Est GFR (Non-Af Amer) 47 L (> 60) BUN/Creatinine Ratio 14 (6-26) Glucose 118 H (70-99) mg/dL Calculated Osmolality 292 (280-300) Calcium 9.9 (8.6-10.8) mg/dL Troponin I (0-0.03) ng/mL B-Natriuretic Peptide (0-100) pg/mL 09/13/16 09/13/16 Range/Units 16:38 16:38 WBC (4.3-11.1) K/mcL RBC (3.82-4.97) M/mcL Hgb (11.5-15.4) g/dL Hct (35.3-44.9) % MCV (83.0-100.0) fL MCH (28.0-33.3) pg MCHC (31.6-35.5) g/dL RDW (11.5-14.5) % Plt Count (140-400) K/mcL MPV (9.4-12.4) fL Immature Gran % (0-4) % Seg Neutrophils % % Lymphocytes % % Monocytes % % Eosinophils % % Basophils % % Neutrophils # (1.6-8.9) K/mcL Lymphocytes # (0.6-4.6) K/mcL Monocytes # (0.0-1.3) K/mcL Eosinophils # (0.0-0.6) K/mcL Basophils # (0.0-0.2) K/mcL PT (9.4-12.1) Seconds INR APTT (26.0-36.0) Seconds Sodium (136-145) mEq/L Potassium (3.5-4.5) mEq/L Chloride (98-109) mEq/L Carbon Dioxide (19-29) mEq/L BUN (7-20) mg/dL Creatinine (0.57-1.11) mg/dL Est GFR ( Amer) (> 60) Est GFR (Non-Af Amer) (> 60) BUN/Creatinine Ratio (6-26) Glucose (70-99) mg/dL Calculated Osmolality (280-300) Calcium (8.6-10.8) mg/dL Troponin I 0.01 (0-0.03) ng/mL B-Natriuretic Peptide 152 H (0-100) pg/mL - Radiology Data Radiology results reviewed: Yes I reviewed the patient's radiology results. - EKG Data EKG attestation: Yes I reviewed and interpreted this EKG.
[2016-09-13] MEDS ORDERED: methylPREDNISolone 125 MG/2 ML VIAL IVP ONE (16:20)
[2016-09-13] MEDS ORDERED: Ipratropium/Albuterol Neb 3 ML IH ONE (16:20)
[2016-09-13 17:03] LABS: Basophils # 0.1 K/mcL (0.0-0.2); Basophils % 0.8 %; Eosinophils # 0.4 K/mcL (0.0-0.6); Eosinophils % 2.7 %; Hematocrit 41.6 % (35.3-44.9); Immature Granulocytes % 1.5 % (0-4); Lymphocytes # 3.1 K/mcL (0.6-4.6); Lymphocytes % 23.3 %; Mean Corpuscular HGB Conc 31.3 g/dL (31.6-35.5); Mean Corpuscular Hemoglobin 27.7 pg (28.0-33.3); Mean Corpuscular Volume 88.5 fL (83.0-100.0); Mean Platelet Volume 10.2 fL (9.4-12.4); Monocytes # 0.9 K/mcL (0.0-1.3); Monocytes % 6.6 %; Neutrophils # 8.8 K/mcL (1.6-8.9); Platelet Count 341 K/mcL (140-400); Red Cell Distribution Width 14.5 % (11.5-14.5); Segmented Neutrophils % 65.1 %
[2016-09-13 17:13] LABS: INR 1.1; Prothrombin Time 12.3 Seconds (9.4-12.1)
[2016-09-13 17:15] LABS: Activated Partial Thrombo Time 29.5 Seconds (26.0-36.0)
[2016-09-13 17:16] LABS: Calcium 9.9 mg/dL (8.6-10.8); Potassium 4.5 mEq/L (3.5-4.5)
[2016-09-13] MEDS ORDERED: Levofloxacin 750 MG/150 ML 750 MG/150 ML BAG IVPB ONE (17:35)
--- NOTE | 2016-09-13 21:20 | Internal Med History&Physical ---
Date of Encounter: 09/13/16 Time of Encounter: 21:16 Assessment and Plan (1) Acute exacerbation of chronic obstructive airways disease Current visit: No Status: Resolved The patient has been admitted with an acute exacerbation of underlying COPD. Chest x-ray did not reveal evidence of pneumonia. Continue with IV steroids and Levaquin. Nebulizer therapy. Oxygen supplementation. DVT prophylaxis. Resume home medications. Monitor pulse oximetry continuously. (2) Shortness of breath Current visit: No Status: Resolved (3) DVT prophylaxis Current visit: No Status: Acute (4) COPD (chronic obstructive pulmonary disease) Current visit: No Status: Chronic Qualifiers: COPD type: emphysema Emphysema type: panlobular Qualified Code(s): J43.1 - Panlobular emphysema (5) Anxiety Current visit: No Status: Chronic (6) HTN (hypertension) Current visit: No Status: Chronic Qualifiers: Hypertension type: essential hypertension Qualified Code(s): I10 - Essential (primary) hypertension (7) GERD (gastroesophageal reflux disease) Current visit: No Status: Chronic Qualifiers: Esophagitis presence: esophagitis presence not specified Qualified Code(s) : K21.9 - Gastro-esophageal reflux disease without esophagitis Internal Medicine - H&P: HPI Chief complaint: Shortness of breath Admitted From: Emergency Dept Plans for Post Hospital Care: Home History of present illness: Ms. Kaye is a 71 year old female with past medical history of COPD on long- term oxygen therapy, GERD, anxiety. She presented to our emergency department complaining of progressive shortness of breath and cough which is started at least 2 weeks ago. Patient denies fever, however admits chils. She denies hemoptysis, leg swelling, loss of consciousness, diarrhea, dysuria, hematuria. The patient states that she went to see his primary care physician and was given a dose of steroids, however she has not improved. She presented to the emergency department via squad, her initial blood pressure was 154/78, her oxygen saturation on 3 L/m was 96%, respiratory rate was 22/m, heart rate was 67 per minute. CBC revealed mild leukocytosis with a WBC count of 13.5, hemoglobin was 13, hematocrit 41.6. Biochemistry testing revealed a sodium of 140, potassium 4.5, BUN 16, creatinine 1.15, glucose was 118. Brain natruretic peptide was 152, troponin was 0.01 at at bedtime x-ray was obtained and did not show any signs of pneumonia. The patient was discharged from this facility on August 26 of this year, at the time she presented with chest pain, acute coronary syndrome was ruled out. The patient states that occasionally has flares of her COPD and typically improves after a few days of IV steroids and inpatient therapy. She was admitted for further management and workup. Past Med Surg Social Fam HX - Past Medical History Medical history: COPD Psychiatric history: anxiety, depression - Past Surgical History Surgical History: appendectomy, cholecystectomy, hysterectomy - Social History Smoking Status: Former smoker Smokeless Tobacco Status: No Alcohol use: none Drug use: none - Family History Mother Adopted: No Family Member Ethnicity: Non- Living Status: Hx Family Cardiac Disorders: No Hx Family Respiratory Disorders: No Hx Family Cancer: Yes Hx Family GI Disorders: No Hx Family Endocrine Disorder: No Hx Family Neuromuscular Disorders: No Hx Family Neurologic Disorders: No Hx Family HEENT Disorders: No Hx Family Autoimmune Disorders: No Father Living Status: Hx Family Cancer: Yes Brother Adopted: No Living Status: Hx Family Endocrine Disorder: Yes (dm) Internal Medicine - H&P: Meds Albuterol Neb [Proventil Neb] 2.5 mg IH TID 02/07/15 [History] Albuterol Sulfate [Albuterol Inhaler] 2 puff IH Q4HR PRN 02/07/15 [History] Tiotropium [Spiriva] 18 mcg IH DAILY 02/07/15 [History] Citalopram Hydrobromide [Celexa] 20 mg PO DAILY 05/09/15 [History] Acetylcysteine [Q-Qogbph-i-Cysteine] 600 mg PO BID 09/16/15 [History] Ibandronate Sodium 150 mg PO QMONTH 02/16/16 [History] Theophylline Anhydrous [Theodur] 300 mg PO BID #60 tab.er.12h 02/23/16 [Rx] Alprazolam [Xanax] 0.5 mg PO BID 08/24/16 [History] Aspirin Enteric Coated [Aspirin EC] 81 mg PO DAILY 08/24/16 [History] Atorvastatin [Lipitor] 10 mg PO HS 08/24/16 [History] Fluticasone/Salmeterol [Advair 500-50 Diskus] 1 each IH BID 08/24/16 [History] Oxygen 3 l NS CONT 08/24/16 [History] PredniSONE 5 mg PO DAILY 08/24/16 [History] Amlodipine [Norvasc] 10 mg PO DAILY #60 tablet 08/26/16 [Rx] Brimonidine Tartrate [Alphagan P] 1 drop OP BID 09/13/16 [History] Latanoprost [Xalatan] 1 drop OP HS 09/13/16 [History] Levofloxacin [Levofloxacin] 500 mg PO DAILY 09/13/16 [History] Allergies No Known Allergies Allergy (Verified 02/16/16 11:39) All Systems PM: A 10-system review of systems was performed and is negative for pertinent findings except as documented above in the HPI. - Constitutional Constitutional: as per HPI, no chills, no fever(s), no night sweats - EENT Eyes: as per HPI, no change in vision, no discharge, no pain, no photophobia Ears: as per HPI, no ear discharge, no ear pain, no tinnitus Nose, mouth and throat: as per HPI, no dysphagia, no nasal discharge, no neck pain, no sore throat - Breasts Breasts: as per HPI - Cardiovascular Cardiovascular ROS IM: as per HPI, no chest pain, no diaphoresis, no dyspnea, no lightheadedness, no palpitations, no syncope - Respiratory Respiratory: as per HPI, cough, dyspnea, wheezing, no excessive phlegm production - Gastrointestinal Gastrointestinal: no abdominal pain, no diarrhea, no hematemesis, no hematochezia, no melena, no nausea, no vomiting - Genitourinary Genitourinary: no change in urinary stream, no dysuria, no flank pain, no hematuria - Musculoskeletal Musculoskeletal ROS IM: no numbness, no tingling - Integumentary Integumentary IM: no rash, no unusual bruising - Neurological Neurological ROS: no confusion, no convulsions, no focal weakness, no numbness, no tingling, no tremor(s) - Hematologic/Lymphatic Hematologic/Lymphatic: no easy bruising - Constitutional Vitals: Temp Pulse Resp BP Pulse Ox 97.9 F 67 20 132/66 97 09/13/16 15:51 09/13/16 18:01 09/13/16 18:49 09/13/16 18:49 09/13/16 18:01 General appearance: Present: cooperative, A&O X 3, pleasant, no acute distress - Head Head exam: Present: atraumatic, normocephalic - Eye Eye exam: Present: PERRL, conjuntiva pink, sclera anicteric Pupils: Present: PERRL - Neck Neck exam general surgery: Present: supple, trachea midline. Absent: lymphadenopathy - Respiratory Respiratory exam: Present: decreased breath sounds, wheezes. Absent: accessory muscle use, rales, rhonchi - Cardiovascular Cardiovascular exam: Present: RRR, +S1, +S2. Absent: diastolic murmur, gallop, rubs, systolic murmur - GI/Abdominal GI/Abdominal exam: Present: normal bowel sounds, soft, no peritoneal signs. Absent: distended, tenderness - Extremities Exam Extremities exam: Present: warm, radial pulses palpable and symetrical. Absent : calf tenderness, cyanotic, pedal edema - Neurological Exam Neurological exam: Present: CN II-XII intact, oriented X3, no focal deficits. Absent: pronater drift, facial droop, speech deficit - Skin Skin exam: Present: dry, intact Internal Med - H&P Results - Labs CBC & Chem 7: 09/13/16 16:38 09/13/16 16:38
[2016-09-13] MEDS ORDERED: Naloxone 0.4 MG/ML INJ IVP PRN (21:23)
[2016-09-13] MEDS ORDERED: Albuterol 2.5 MG/3 ML NEBULIZER IH PRN (21:23)
[2016-09-13] MEDS ORDERED: Acetaminophen 325 MG TABLET PO PRN (21:23)
[2016-09-13] MEDS: ALPRAZolam 0.5 MG TABLET PO SCH (22:41)
[2016-09-13] MEDS: MethylPREDNISolone 40 MG/ML VIAL IVP SCH (22:41)
[2016-09-13] MEDS: Ipratropium/Albuterol Neb 3 ML IH SCH (23:05)
[2016-09-14] MEDS: Ipratropium/Albuterol Neb 3 ML IH SCH ×4 (04:06→23:34)
[2016-09-14 04:59] LABS: Basophils % 0.4 %; Hematocrit 38.4 % (35.3-44.9); Hemoglobin 12.2 g/dL (11.5-15.4); Immature Granulocytes % 1.7 % (0-4); Mean Corpuscular HGB Conc 31.8 g/dL (31.6-35.5); Mean Corpuscular Hemoglobin 28.2 pg (28.0-33.3); Mean Corpuscular Volume 88.7 fL (83.0-100.0); Mean Platelet Volume 10.7 fL (9.4-12.4); Monocytes # 0.2 K/mcL (0.0-1.3); Monocytes % 2.4 %; Neutrophils # 5.8 K/mcL (1.6-8.9); Platelet Count 302 K/mcL (140-400); Red Blood Count 4.33 M/mcL (3.82-4.97); Red Cell Distribution Width 14.5 % (11.5-14.5); Segmented Neutrophils % 81.5 %
[2016-09-14 05:12] LABS: Calcium 9.3 mg/dL (8.6-10.8); Potassium 4.7 mEq/L (3.5-4.5)
[2016-09-14] MEDS: *HR* Heparin 5,000 UNIT/ML VIAL SQ SCH ×2 (06:19→17:20)
[2016-09-14] MEDS ORDERED: ALPRAZolam 0.5 MG TABLET PO SCH (09:00)
[2016-09-14] MEDS: Aspirin Enteric Coated 81 MG Tablet PO SCH (09:22)
[2016-09-14] MEDS: amLODIPine 5 MG TABLET PO SCH (09:22)
[2016-09-14] MEDS: MethylPREDNISolone 40 MG/ML VIAL IVP SCH ×2 (09:22→17:19)
[2016-09-14] MEDS: ALPRAZolam 0.5 MG TABLET PO SCH ×2 (09:22→22:00)
--- NOTE | 2016-09-14 13:02 | Internal Med Progress Note ---
Date of Encounter: 09/14/16 Time of Encounter: 09:15 - Assessment and plan (1) Acute exacerbation of chronic obstructive airways disease Current Visit: No Status: Acute Assessment and plan: Patient is slightly improved from yesterday however is not back to her baseline. We will continue pulmonary toilet. Patient stating she feels as if she has a lot of chest congestion but has a nonproductive cough, will add mucolytics. Continue levofloxacin. ITS Impressions Chest X-Ray 09/13/16 15:51 IMPRESSION: No pneumonia or edema Emphysema D/ / Sebastian Man MD / Sebastian Man MD Interpreting Provider: Sebastian Man MD (2) DVT prophylaxis Current Visit: No Status: Acute Assessment and plan: Subcutaneous heparin (3) COPD (chronic obstructive pulmonary disease) Current Visit: No Status: Chronic Qualifiers: COPD type: emphysema Emphysema type: panlobular Qualified Code(s): J43.1 - Panlobular emphysema (4) Chronic respiratory failure Current Visit: No Status: Chronic Assessment and plan: No change in oxygen requirement, 3 L at home, 3 L here. 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 We will trend. Qualifiers: Hypertension type: essential hypertension Qualified Code(s): I10 - Essential (primary) hypertension (9) GERD (gastroesophageal reflux disease) Current Visit: No Status: Chronic Assessment and plan: Denies current symptoms Qualifiers: Esophagitis presence: esophagitis presence not specified Qualified Code(s) : K21.9 - Gastro-esophageal reflux disease without esophagitis (10) ARNOLDO (acute kidney injury) Current Visit: No Status: Acute Assessment and plan: Mild, resolving, will trend. No evidence of chronic kidney disease. - Subjective Interval history: Patient seen and examined. On examination, patient is sitting upright in bed. Patient stating she feels "approximately 10% better" but she is not back to her baseline. She still continues to endorse shortness of breath above her norm. She is endorsing a normal appetite and denies pain at this time. - Constitutional Vitals: Temp Pulse Resp BP Pulse Ox 97.5 F L 76 16 103/63 94 L 09/14/16 11:07 09/14/16 11:07 09/14/16 11:07 09/14/16 11:07 09/14/16 11:07 General appearance: Present: cooperative, mild distress, A&O X 3, pleasant, answers questions appropriately - Head Head exam: Present: atraumatic, normocephalic - Eye Eye exam: Present: PERRL, conjuntiva pink, sclera anicteric Pupils: Present: PERRL - Neck Neck exam general surgery: Present: supple, trachea midline. Absent: lymphadenopathy - Respiratory Respiratory exam: Present: accessory muscle use, decreased breath sounds, prolonged expiratory phase, respiratory distress. Absent: rales, rhonchi, wheezes - Cardiovascular Cardiovascular exam: Present: RRR, +S1, +S2. Absent: diastolic murmur, gallop, rubs, systolic murmur - GI/Abdominal GI/Abdominal exam: Present: normal bowel sounds, soft, no peritoneal signs. Absent: distended, tenderness - Extremities Exam Extremities exam: Present: warm, radial pulses palpable and symetrical. Absent : calf tenderness, cyanotic, pedal edema - Neurological Exam Neurological exam: Present: alert, CN II-XII intact, normal gait, oriented X3, no focal deficits, strengths equal and symetr throughout. Absent: pronater drift, facial droop, speech deficit - Skin Skin exam: Present: dry, intact, pallor, warm Internal Medicine: Result - Labs CBC & Chem 7: 09/14/16 04:14 09/14/16 04:14 Labs: Short CBC 09/14/16 Range/Units 04:14 WBC 7.1 (4.3-11.1) K/mcL Hgb 12.2 (11.5-15.4) g/dL Hct 38.4 (35.3-44.9) % Plt Count 302 (140-400) K/mcL Neutrophils # 5.8 (1.6-8.9) K/mcL BMP 09/14/16 04:14 Sodium 137 Potassium 4.7 H Chloride 101 Carbon Dioxide 27 BUN 21 H Creatinine 1.10 Glucose 157 H Calcium 9.3 - ABG Interpretation ABG results: PT/INR, D-dimer PT 12.3 Seconds (9.4-12.1) H 09/13/16 16:38 Consult Discharge Plan - Plan Referrals: Ronel Arce MD [Primary Care Provider] - 09/23/16 10:45 am
--- NOTE | 2016-09-14 15:30 | Electrocardiograph Report ---
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
[2016-09-14] MEDS: Levofloxacin 750 MG/150 ML 750 MG/150 ML BAG IVPB SCH (17:20)
[2016-09-14] MEDS: Latanoprost 2.5 ML BOTTLE BOTH EYES SCH (20:06)
[2016-09-15] MEDS: MethylPREDNISolone 40 MG/ML VIAL IVP SCH ×4 (00:12→23:23)
[2016-09-15] MEDS: Ipratropium/Albuterol Neb 3 ML IH SCH ×5 (04:49→20:20)
[2016-09-15 04:51] LABS: BUN/Creatinine Ratio 27 (6-26); Blood Urea Nitrogen 26 mg/dL (7-20); Calcium 8.8 mg/dL (8.6-10.8); Carbon Dioxide 24 mEq/L (19-29); Chloride 105 mEq/L (98-109); Glucose 149 mg/dL (70-99); Osmolality,Calculated 296 (280-300); Potassium 4.1 mEq/L (3.5-4.5); Sodium 139 mEq/L (136-145); eGFR For African Americans > 60 (> 60); eGFR For Non-African Americans 57 (> 60)
[2016-09-15] MEDS: *HR* Heparin 5,000 UNIT/ML VIAL SQ SCH ×2 (06:09→17:15)
[2016-09-15] MEDS: amLODIPine 5 MG TABLET PO SCH (08:32)
[2016-09-15] MEDS: Aspirin Enteric Coated 81 MG Tablet PO SCH (08:33)
[2016-09-15] MEDS: ALPRAZolam 0.5 MG TABLET PO SCH ×2 (08:34→21:57)
--- NOTE | 2016-09-15 11:51 | Internal Med Progress Note ---
Date of Encounter: 09/15/16 Time of Encounter: 09:30 - Assessment and plan (1) Acute exacerbation of chronic obstructive airways disease Current Visit: No Status: Acute Assessment and plan: Patient's aeration is slightly improved from yesterday as I was unable to ascertain any wheezing yesterday and expiratory wheezing is noted on today's exam. Patient however states that she is not feeling any better and states she needs another day or 2 before she can feel ready to go home. She is requesting for her duo nebs to be changed to every 4 hours. We will continue pulmonary toilet and current plan of care. Continue levofloxacin. ITS Impressions Chest X-Ray 09/13/16 15:51 IMPRESSION: No pneumonia or edema Emphysema D/ / Sebastian Man MD / Sebastian Man MD Interpreting Provider: Sebastian Man MD (2) DVT prophylaxis Current Visit: No Status: Acute Assessment and plan: Subcutaneous heparin (3) COPD (chronic obstructive pulmonary disease) Current Visit: No Status: Chronic Qualifiers: COPD type: emphysema Emphysema type: panlobular Qualified Code(s): J43.1 - Panlobular emphysema (4) Chronic respiratory failure Current Visit: No Status: Chronic Assessment and plan: No change in oxygen requirement, 3 L at home, 3 L here. Qualifiers: Respiratory failure complication: hypoxia Qualified Code(s): J96.11 - Chronic respiratory failure with hypoxia (5) Anxiety Current Visit: No Status: Chronic Assessment and plan: Mood and affect is stable at this time however patient states she was unable to sleep last night. Rather than taking half a milligram of Xanax twice a day, patient takes 1 mg at bedtime, updated at this time. 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 We will trend. Qualifiers: Hypertension type: essential hypertension Qualified Code(s): I10 - Essential (primary) hypertension (9) GERD (gastroesophageal reflux disease) Current Visit: No Status: Chronic Assessment and plan: Denies current symptoms Qualifiers: Esophagitis presence: esophagitis presence not specified Qualified Code(s) : K21.9 - Gastro-esophageal reflux disease without esophagitis (10) ARNOLDO (acute kidney injury) Current Visit: No Status: Acute Assessment and plan: Mild, resolving, will trend. No evidence of chronic kidney disease. - Subjective Interval history: Patient seen and examined. On examination, patient is sitting upright in bed. Patient stating she feels tired and about the same as yesterday. She states she did not sleep very well last and is requesting her xanax dosage to be changed to bedtime as she takes it at home. She states her appetite is average for her. She states she is not ready to go home today. - Constitutional Vitals: Temp Pulse Resp BP Pulse Ox 97.5 F L 76 15 151/79 98 09/15/16 07:03 09/15/16 07:03 09/15/16 07:03 09/15/16 07:03 09/15/16 07:03 General appearance: Present: cooperative, mild distress (baseline), A&O X 3, pleasant, answers questions appropriately - Head Head exam: Present: atraumatic, normocephalic - Eye Eye exam: Present: PERRL, conjuntiva pink, sclera anicteric Pupils: Present: PERRL - Neck Neck exam general surgery: Present: supple, trachea midline. Absent: lymphadenopathy - Respiratory Respiratory exam: Present: accessory muscle use, decreased breath sounds, prolonged expiratory phase, respiratory distress, wheezes. Absent: CTAB, rales , rhonchi - Cardiovascular Cardiovascular exam: Present: RRR, +S1, +S2. Absent: diastolic murmur, gallop, rubs, systolic murmur - GI/Abdominal GI/Abdominal exam: Present: normal bowel sounds, soft, no peritoneal signs. Absent: distended, tenderness - Extremities Exam Extremities exam: Present: warm, radial pulses palpable and symetrical. Absent : calf tenderness, cyanotic, pedal edema - Neurological Exam Neurological exam: Present: alert, CN II-XII intact, normal gait, oriented X3, no focal deficits, strengths equal and symetr throughout. Absent: pronater drift, facial droop, speech deficit - Skin Skin exam: Present: dry, intact, pallor, warm Internal Medicine: Result - Labs CBC & Chem 7: 09/14/16 04:14 09/15/16 03:23 Labs: BMP 09/15/16 03:23 Sodium 139 Potassium 4.1 Chloride 105 Carbon Dioxide 24 BUN 26 H Creatinine 0.96 Glucose 149 H Calcium 8.8 - ABG Interpretation ABG results: PT/INR, D-dimer PT 12.3 Seconds (9.4-12.1) H 09/13/16 16:38 Consult Discharge Plan - Plan Referrals: Ronel Arce MD [Primary Care Provider] - 09/23/16 10:45 am
[2016-09-15] MEDS: Levofloxacin 750 MG/150 ML 750 MG/150 ML BAG IVPB SCH (17:15)
[2016-09-15] MEDS: Latanoprost 2.5 ML BOTTLE BOTH EYES SCH (21:57)
[2016-09-16] MEDS: Ipratropium/Albuterol Neb 3 ML IH SCH ×7 (00:18→23:31)
[2016-09-16 03:03] LABS: BUN/Creatinine Ratio 32 (6-26); Blood Urea Nitrogen 29 mg/dL (7-20); Calcium 8.8 mg/dL (8.6-10.8); Carbon Dioxide 23 mEq/L (19-29); Chloride 106 mEq/L (98-109); Glucose 173 mg/dL (70-99); Osmolality,Calculated 298 (280-300); Potassium 3.9 mEq/L (3.5-4.5); Sodium 139 mEq/L (136-145); eGFR For African Americans > 60 (> 60); eGFR For Non-African Americans > 60 (> 60)
[2016-09-16] MEDS: *HR* Heparin 5,000 UNIT/ML VIAL SQ SCH ×2 (05:42→16:41)
[2016-09-16] MEDS: amLODIPine 5 MG TABLET PO SCH (07:59)
[2016-09-16] MEDS: Aspirin Enteric Coated 81 MG Tablet PO SCH (07:59)
[2016-09-16] MEDS: MethylPREDNISolone 40 MG/ML VIAL IVP SCH ×3 (08:00→23:07)
[2016-09-16] MEDS: Levofloxacin 750 MG/150 ML 750 MG/150 ML BAG IVPB SCH (16:37)
--- NOTE | 2016-09-16 16:58 | Internal Med Progress Note ---
Date of Encounter: 09/16/16 Time of Encounter: 09:30 - Assessment and plan (1) Acute exacerbation of chronic obstructive airways disease Current Visit: No Status: Acute Assessment and plan: Aeration poor this morning, we will continue current plan of treatment and monitor her response. She states she typically takes several hours after waking up to loosen up phlegm accumulated overnight. Due to the multiple frequent exacerbations, she states she is not ready to go home today and I agree given that her breath sounds are slightly decreased. We will continue to observe her overnight and discuss discharge planning tomorrow pending clinical outcomes. In the past, when she has been discharged too quickly, it results in a frequent readmission rate. We will continue pulmonary toilet and current plan of care. Continue levofloxacin. ITS Impressions Chest X-Ray 09/13/16 15:51 IMPRESSION: No pneumonia or edema Emphysema D/ / Sebastian Man MD / Sebastian Man MD Interpreting Provider: Sebastian Man MD (2) DVT prophylaxis Current Visit: No Status: Acute Assessment and plan: Subcutaneous heparin (3) COPD (chronic obstructive pulmonary disease) Current Visit: No Status: Chronic Qualifiers: COPD type: emphysema Emphysema type: panlobular Qualified Code(s): J43.1 - Panlobular emphysema (4) Chronic respiratory failure Current Visit: No Status: Chronic Assessment and plan: No change in oxygen requirement, 3 L at home, 3 L here. Qualifiers: Respiratory failure complication: hypoxia Qualified Code(s): J96.11 - Chronic respiratory failure with hypoxia (5) Anxiety Current Visit: No Status: Chronic Assessment and plan: Mood and affect is stable at this time however patient states she was unable to sleep last night. Rather than taking half a milligram of Xanax twice a day, patient takes 1 mg at bedtime, updated yesterday and she slept better last night. Anxiety has been controlled. 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 We will trend. Qualifiers: Hypertension type: essential hypertension Qualified Code(s): I10 - Essential (primary) hypertension (9) GERD (gastroesophageal reflux disease) Current Visit: No Status: Chronic Assessment and plan: Denies current symptoms Qualifiers: Esophagitis presence: esophagitis presence not specified Qualified Code(s) : K21.9 - Gastro-esophageal reflux disease without esophagitis (10) ARNOLDO (acute kidney injury) Current Visit: No Status: Resolved - Subjective Interval history: Patient seen and examined. On examination, patient is initially asleep in bed and awakened easily to voice. She stated that she slept better last night than the prior night. She states her shortness of breath feels slightly worsened today and states that when she gets up and starts moving she will start to loosen up morning phlegm and start to feel better. She is requesting one more day of admission stating that she is not ready to go home for fear of having to come right back. - Constitutional Vitals: Temp Pulse Resp BP Pulse Ox 98.1 F 72 14 147/62 94 L 09/16/16 14:57 09/16/16 14:57 09/16/16 14:57 09/16/16 14:57 09/16/16 14:57 General appearance: Present: cooperative, mild distress (baseline), A&O X 3, pleasant, answers questions appropriately - Head Head exam: Present: atraumatic, normocephalic - Eye Eye exam: Present: PERRL, conjuntiva pink, sclera anicteric Pupils: Present: PERRL - Neck Neck exam general surgery: Present: supple, trachea midline. Absent: lymphadenopathy - Respiratory Respiratory exam: Present: accessory muscle use, decreased breath sounds, prolonged expiratory phase, respiratory distress. Absent: rales, rhonchi, wheezes - Cardiovascular Cardiovascular exam: Present: RRR, +S1, +S2. Absent: diastolic murmur, gallop, rubs, systolic murmur - GI/Abdominal GI/Abdominal exam: Present: normal bowel sounds, soft, no peritoneal signs. Absent: distended, tenderness - Extremities Exam Extremities exam: Present: warm, radial pulses palpable and symetrical. Absent : calf tenderness, cyanotic, pedal edema - Neurological Exam Neurological exam: Present: alert, CN II-XII intact, oriented X3, no focal deficits, strengths equal and symetr throughout. Absent: pronater drift, facial droop, speech deficit - Skin Skin exam: Present: dry, intact, pallor, warm Internal Medicine: Result - Labs CBC & Chem 7: 09/14/16 04:14 09/16/16 02:38 Labs: BMP 09/16/16 02:38 Sodium 139 Potassium 3.9 Chloride 106 Carbon Dioxide 23 BUN 29 H Creatinine 0.92 Glucose 173 H Calcium 8.8 - ABG Interpretation ABG results: PT/INR, D-dimer PT 12.3 Seconds (9.4-12.1) H 09/13/16 16:38 Consult Discharge Plan - Plan Referrals: Ronel Arce MD [Primary Care Provider] - 09/23/16 10:45 am
[2016-09-16] MEDS: Latanoprost 2.5 ML BOTTLE BOTH EYES SCH (20:09)
[2016-09-16] MEDS: ALPRAZolam 0.5 MG TABLET PO SCH (22:07)
[2016-09-17] MEDS: Ipratropium/Albuterol Neb 3 ML IH SCH ×6 (03:31→23:07)
[2016-09-17] MEDS: *HR* Heparin 5,000 UNIT/ML VIAL SQ SCH ×2 (05:23→17:28)
[2016-09-17] MEDS: Aspirin Enteric Coated 81 MG Tablet PO SCH (07:43)
[2016-09-17] MEDS: MethylPREDNISolone 40 MG/ML VIAL IVP SCH ×3 (07:44→23:16)
[2016-09-17] MEDS: amLODIPine 5 MG TABLET PO SCH (07:44)
--- NOTE | 2016-09-17 13:45 | Internal Med Progress Note ---
Date of Encounter: 09/17/16 Time of Encounter: 09:15 - Assessment and plan (1) Acute exacerbation of chronic obstructive airways disease Current Visit: No Status: Acute Assessment and plan: Aeration improved today however the patient states she thinks she needs another day of inpatient medication before she can go home. Given her high admission/ readmission rate and end-stage status of her COPD, we will keep her another night for IV site Medrol and furthered exacerbation treatment. She is quite adept to her body and her disease and capable of determining what is best for her, we will give her another night and revisit this topic tomorrow morning. Continue current plan of care. 09/16/16 Aeration poor this morning, we will continue current plan of treatment and monitor her response. She states she typically takes several hours after waking up to loosen up phlegm accumulated overnight. Due to the multiple frequent exacerbations, she states she is not ready to go home today and I agree given that her breath sounds are slightly decreased. We will continue to observe her overnight and discuss discharge planning tomorrow pending clinical outcomes. In the past, when she has been discharged too quickly, it results in a frequent readmission rate. We will continue pulmonary toilet and current plan of care. Continue levofloxacin. ITS Impressions Chest X-Ray 09/13/16 15:51 IMPRESSION: No pneumonia or edema Emphysema D/ / Sebastian Man MD / Sebastian Man MD Interpreting Provider: Sebastian Man MD (2) DVT prophylaxis Current Visit: No Status: Acute Assessment and plan: Subcutaneous heparin (3) COPD (chronic obstructive pulmonary disease) Current Visit: No Status: Chronic Qualifiers: COPD type: emphysema Emphysema type: panlobular Qualified Code(s): J43.1 - Panlobular emphysema (4) Chronic respiratory failure Current Visit: No Status: Chronic Assessment and plan: No change in oxygen requirement, 3 L at home, 3 L here. Qualifiers: Respiratory failure complication: hypoxia Qualified Code(s): J96.11 - Chronic respiratory failure with hypoxia (5) Anxiety Current Visit: No Status: Chronic Assessment and plan: Mood and affect is stable at this time however patient states she was unable to sleep last night. Rather than taking half a milligram of Xanax twice a day, patient takes 1 mg at bedtime, updated yesterday and she slept better 2 nights ago and slept very well last night. Anxiety has been controlled. 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 She is borderline hypertensive at times overnight, but normotensive during the day, we will trend. Qualifiers: Hypertension type: essential hypertension Qualified Code(s): I10 - Essential (primary) hypertension (9) GERD (gastroesophageal reflux disease) Current Visit: No Status: Chronic Assessment and plan: Denies current symptoms Qualifiers: Esophagitis presence: esophagitis presence not specified Qualified Code(s) : K21.9 - Gastro-esophageal reflux disease without esophagitis (10) ARNOLDO (acute kidney injury) Current Visit: No Status: Resolved - Subjective Interval history: Patient seen and examined. On examination, patient is alert and interactive and states she still feels as if her aeration is better but not back to her baseline and she states she is not ready to go home. She states she is eating well. She states she slept well last night. She states she thinks that she needs 1 more day of inpatient treatment prior to going home. - Constitutional Vitals: Temp Pulse Resp BP Pulse Ox 97.7 F 102 16 117/66 96 09/17/16 11:03 09/17/16 11:03 09/17/16 11:28 09/17/16 11:03 09/17/16 11:28 General appearance: Present: cooperative, mild distress (baseline), A&O X 3, pleasant, answers questions appropriately - Head Head exam: Present: atraumatic, normocephalic - Eye Eye exam: Present: PERRL, conjuntiva pink, sclera anicteric Pupils: Present: PERRL - Neck Neck exam general surgery: Present: supple, trachea midline. Absent: lymphadenopathy - Respiratory Respiratory exam: Present: accessory muscle use, decreased breath sounds, prolonged expiratory phase, respiratory distress (mild). Absent: rales, rhonchi , wheezes - Cardiovascular Cardiovascular exam: Present: RRR, +S1, +S2. Absent: diastolic murmur, gallop, rubs, systolic murmur - GI/Abdominal GI/Abdominal exam: Present: normal bowel sounds, soft, no peritoneal signs. Absent: distended, tenderness - Extremities Exam Extremities exam: Present: warm, radial pulses palpable and symetrical. Absent : calf tenderness, cyanotic, pedal edema - Neurological Exam Neurological exam: Present: alert, CN II-XII intact, normal gait, oriented X3, no focal deficits, strengths equal and symetr throughout. Absent: pronater drift, facial droop, speech deficit - Skin Skin exam: Present: dry, intact, pallor, warm Internal Medicine: Result - Labs CBC & Chem 7: 09/14/16 04:14 09/16/16 02:38 - ABG Interpretation ABG results: PT/INR, D-dimer PT 12.3 Seconds (9.4-12.1) H 09/13/16 16:38 Consult Discharge Plan - Plan Referrals: Ronel Arce MD [Primary Care Provider] - 09/23/16 10:45 am
[2016-09-17] MEDS: Levofloxacin 750 MG/150 ML 750 MG/150 ML BAG IVPB SCH (17:29)
[2016-09-17] MEDS: Latanoprost 2.5 ML BOTTLE BOTH EYES SCH (20:49)
[2016-09-17] MEDS: ALPRAZolam 0.5 MG TABLET PO SCH (23:16)
[2016-09-18] MEDS: Ipratropium/Albuterol Neb 3 ML IH SCH ×3 (03:57→11:04)
[2016-09-18] MEDS: *HR* Heparin 5,000 UNIT/ML VIAL SQ SCH (05:46)
[2016-09-18] MEDS: amLODIPine 5 MG TABLET PO SCH (07:49)
[2016-09-18] MEDS: Aspirin Enteric Coated 81 MG Tablet PO SCH (07:49)
[2016-09-18] MEDS: MethylPREDNISolone 40 MG/ML VIAL IVP SCH (07:49)
[2016-09-18 10:31] VITALS: BP 145/78
--- NOTE | 2016-09-18 12:10 | Discharge Summary ---
Date of Encounter: 09/18/16 Time of Encounter: 09:30 - Discharge Diagnosis (1) Acute exacerbation of chronic obstructive airways disease Priority: Primary Status: Resolved Comments: Patient denied shortness of breath above her normal day of discharge and stated she felt comfortable going home. (2) DVT prophylaxis Priority: Primary Status: Acute Comments: Subcutaneous heparin while admitted (3) COPD (chronic obstructive pulmonary disease) Priority: Secondary Status: Chronic Qualifiers: COPD type: emphysema Emphysema type: panlobular Qualified Code(s): J43.1 - Panlobular emphysema (4) Chronic respiratory failure Priority: Secondary Status: Chronic Comments: No increased need for oxygen, on 3 L at home, 3 L while admitted Qualifiers: Respiratory failure complication: hypoxia Qualified Code(s): J96.11 - Chronic respiratory failure with hypoxia (5) Anxiety Priority: Secondary Status: Chronic (6) Tobacco abuse Priority: Secondary Status: Resolved (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 Follow-up outpatient Qualifiers: Hypertension type: essential hypertension Qualified Code(s): I10 - Essential (primary) hypertension (9) GERD (gastroesophageal reflux disease) Priority: Secondary Status: Chronic Comments: Denied current symptoms Qualifiers: Esophagitis presence: esophagitis presence not specified Qualified Code(s) : K21.9 - Gastro-esophageal reflux disease without esophagitis (10) ARNOLDO (acute kidney injury) Priority: Primary Status: Resolved - Discharge Medications Prescriptions: PredniSONE 10 mg PO DAILY #80 tablet Home Medications: Albuterol Neb [Proventil Neb] 2.5 mg IH TID 02/07/15 [History] Albuterol Sulfate [Albuterol Inhaler] 2 puff IH Q4HR PRN 02/07/15 [History] Tiotropium [Spiriva] 18 mcg IH DAILY 02/07/15 [History] Citalopram Hydrobromide [Celexa] 20 mg PO DAILY 05/09/15 [History] Acetylcysteine [K-Bxymxr-r-Cysteine] 600 mg PO BID 09/16/15 [History] Ibandronate Sodium 150 mg PO QMONTH 02/16/16 [History] Theophylline Anhydrous [Theodur] 300 mg PO BID #60 tab.er.12h 08/30/16 [Rx] Alprazolam [Xanax] 0.5 mg PO BID 08/24/16 [History] Aspirin Enteric Coated [Aspirin EC] 81 mg PO DAILY 08/24/16 [History] Atorvastatin [Lipitor] 10 mg PO HS 08/24/16 [History] Fluticasone/Salmeterol [Advair 500-50 Diskus] 1 each IH BID 08/24/16 [History] Oxygen 3 l NS CONT 08/24/16 [History] PredniSONE 5 mg PO DAILY 08/24/16 [History] Amlodipine [Norvasc] 10 mg PO DAILY #60 tablet 08/26/16 [Rx] Brimonidine Tartrate [Alphagan P] 1 drop OP BID 09/13/16 [History] Latanoprost [Xalatan] 1 drop OP HS 09/13/16 [History] Levofloxacin 500 mg PO DAILY 09/13/16 [History] PredniSONE 10 mg PO DAILY #80 tablet 09/18/16 [Rx] Allergies/Adverse Reactions: Allergies No Known Allergies Allergy (Verified 02/16/16 11:39) Date of admission: 09/13/16 18:02 Primary care physician: Ronel Arce Consults: 09/13/16 21:23 Consult to Nurse Navigator [CONS] Routine Comment: Discharging clinician: Brisa Del Cid Anticipated date of discharge: 09/18/16 - Patient Status Disposition: Home, Self-Care Condition: Fair Functional capacity at discharge: independent ambulation Overall status at discharge: patient is back to baseline - Discharge Instructions Follow Up With: Ronel Arce MD [Primary Care Provider] - 09/23/16 10:45 am Additional Instructions: Follow-up with primary care provider as scheduled - Diet and Activity Activity: increase activity as tolerated, wear oxygen at all times Diet: low salt diet Hospital course: Ms. Kaye is a 71 year old female with past medical history of COPD on 3L per nasal cannula at home, gerd, anxiety. Patient presented to the emergency department chief complaint progressive shortness of breath and cough for 2 weeks. She denied fever but endorsed chills. She denied hemoptysis, pedal edema, loss of consciousness, or dysuria. Patient went to her primary care provider and was given a dose of steroids but she did not improve. Workup in the emergency department unremarkable. Chest x-ray negative. Patient was admitted to the hospitalist service for further evaluation and management. Patient had mild acute kidney injury upon presentation that resolved during this admission. She was admitted and observed over the course of 6 days. Of note, patient was admitted slightly longer than usual for a COPD exacerbation as she felt as if her symptoms were more severe than in the past and she was kept to prevent frequent readmissions. She was treated with levofloxacin, bronchodilators, steroids. On day of discharge, she denied shortness of breath above her norm. She maintained her normal setting of 3 L per nasal cannula continuously during this admission. She was discharged home in stable condition with close outpatient follow-up recommended. She was also sent on a 21 day taper of prednisone. ITS Impressions Chest X-Ray 09/13/16 15:51 IMPRESSION: No pneumonia or edema Emphysema D/ / Sebastian Man MD / Sebastian Man MD Interpreting Provider: Sebastian Man MD - Time Spent with Patient Total time spent providing and/or coordinating discharge services: - Constitutional Vitals: Temp Pulse Resp BP Pulse Ox 97.5 F L 85 18 145/78 95 09/18/16 10:30 09/18/16 10:30 09/18/16 11:04 09/18/16 10:30 09/18/16 11:04 General appearance: Present: cooperative, mild distress (baseline), A&O X 3, pleasant, answers questions appropriately - Head Head exam: Present: atraumatic, normocephalic - Eye Eye exam: Present: PERRL, conjuntiva pink, sclera anicteric Pupils: Present: PERRL - Neck Neck exam general surgery: Present: supple, trachea midline. Absent: lymphadenopathy - Respiratory Respiratory exam: Present: decreased breath sounds, prolonged expiratory phase, respiratory distress (mild; baseline), wheezes. Absent: accessory muscle use, rales, rhonchi - Cardiovascular Cardiovascular exam: Present: RRR, +S1, +S2. Absent: diastolic murmur, gallop, rubs, systolic murmur - GI/Abdominal GI/Abdominal exam: Present: normal bowel sounds, soft, no peritoneal signs. Absent: distended, tenderness - Extremities Exam Extremities exam: Present: warm, radial pulses palpable and symetrical. Absent : calf tenderness, cyanotic, pedal edema - Neurological Exam Neurological exam: Present: alert, CN II-XII intact, normal gait, oriented X3, no focal deficits, strengths equal and symetr throughout. Absent: pronater drift, facial droop, speech deficit - Skin Skin exam: Present: dry, intact, pallor, warm
== END 2016-09-18 13:10 | disposition home or self-care (01) ==
LOC: 3BNU 15:49 → EMEROO 15:49 → 3BNU 19:32
PROVIDERS: ADMIT Internal Medicine; ATTEND Nurse Practitioner Family

== ENCOUNTER 2017-02-28 15:10 | Inpatient (IN) ==
[2017-02-28] MEDS ORDERED: Ipratropium/Albuterol Neb 3 ML IH ONE (15:24)
[2017-02-28] MEDS ORDERED: methylPREDNISolone 125 MG/2 ML VIAL IVP ONE (15:24)
[2017-02-28 15:54] LABS: Bilirubin,Urine Negative (Negative); Blood,Urine Negative (Negative); Clarity,Urine Clear (Clear); Color,Urine Yellow (Yellow); Glucose,Urine (UA) Normal (Normal); Ketones,Urine Negative (Negative); Leukocyte Esterase,Urine Negative (Negative); Nitrite,Urine Negative (Negative); Protein,Urine Negative (Neg-Trace); Urobilinogen,Urine Normal (Normal)
[2017-02-28 16:03] LABS: Basophils # 0.1 K/mcL (0.0-0.2); Basophils % 0.8 %; Eosinophils # 0.8 K/mcL (0.0-0.6); Eosinophils % 7.4 %; Hemoglobin 12.5 g/dL (11.5-15.4); Immature Granulocytes % 0.6 % (0-4); Lymphocytes # 3.3 K/mcL (0.6-4.6); Lymphocytes % 30.1 %; Mean Corpuscular HGB Conc 31.3 g/dL (31.6-35.5); Mean Corpuscular Volume 86.4 fL (83.0-100.0); Mean Platelet Volume 10.6 fL (9.4-12.4); Monocytes # 0.9 K/mcL (0.0-1.3); Monocytes % 8.1 %; Neutrophils # 5.8 K/mcL (1.6-8.9); Platelet Count 302 K/mcL (140-400); Red Blood Count 4.63 M/mcL (3.82-4.97); Red Cell Distribution Width 16.3 % (11.5-14.5)
[2017-02-28 16:08] LABS: INR 1.1; Prothrombin Time 11.4 Seconds (9.4-12.1)
[2017-02-28 16:10] LABS: Activated Partial Thrombo Time 31.9 Seconds (26.0-36.0)
[2017-02-28 16:12] LABS: BUN/Creatinine Ratio 14 (6-26); Blood Urea Nitrogen 14 mg/dL (7-20); Calcium 10.2 mg/dL (8.6-10.8); Carbon Dioxide 30 mEq/L (19-29); Chloride 104 mEq/L (98-109); Glucose 97 mg/dL (70-99); Osmolality,Calculated 292 (280-300); Potassium 4.6 mEq/L (3.5-4.5); Sodium 141 mEq/L (136-145); eGFR For African Americans > 60 (> 60); eGFR For Non-African Americans 55 (> 60)
[2017-02-28 16:15] LABS: Albumin 3.4 g/dL (3.5-5.0); Bilirubin,Direct 0.3 mg/dL (0.0-0.5); Bilirubin,Indirect 0.4 mg/dL (0.0-1.2); Bilirubin,Total 0.7 mg/dL (0.2-1.2); Globulin 3.5 g/dL (2.4-3.5); Total Protein 6.9 g/dL (6.0-8.3)
--- NOTE | 2017-02-28 16:20 | Emergency Department Note ---
Disposition Clinical Impression: COPD exacerbation Disposition: Admitted As Inpatient Condition: Good Referrals: NONE,PCP [Primary Care Provider] - Forms: ED Satisfaction Letter Time of Disposition: 17:03 SOB HPI - General Chief Complaint: ED Shortness of Breath/Dyspnea Stated Complaint: Celina Time Seen by Provider: 02/28/17 15:12 Source: EMS Limitations: no limitations Nursing Notes Reviewed: Yes Vital Signs Reviewed: Yes - History of Present Illness 71 year old female with HX Of COPD and oxygen dependent at 3LNC at all times states that she believs she is having an excerabtion of her COPD. She states that she has had a productive cough for he past 3 days and subjective fevers at home with chills and states taht she thinks this has excerbaed her COPD. Eric states that her last hospitalizaion has been back in August 2016 and she has been to the ED about 15x time then for simliar symptos and she typically gets treament and then goes home. Eric sttates that this feels like her previous episodes and is sure that this is a COPD excerbation. Eric states that she does breathing treamtents at home and she has only done one before arrival and has not become hypoxic at home although she feels dyspneic. Eric caleld her PCP And she told veronique ot come to the ED for evaluation and treatment. - Related Data Home Medications Medication Instructions Recorded Confirmed Albuterol Neb [Proventil Neb] 2.5 mg IH TID 02/07/15 09/13/16 Albuterol Sulfate [Albuterol 2 puff IH Q4HR PRN 02/07/15 09/13/16 Inhaler] Tiotropium [Spiriva] 18 mcg IH DAILY 02/07/15 09/13/16 Citalopram Hydrobromide [Celexa] 20 mg PO DAILY 05/09/15 09/13/16 Acetylcysteine 600 mg PO BID 09/16/15 09/13/16 [S-Zvxwjk-a-Cysteine] Ibandronate Sodium 150 mg PO QMONTH 02/16/16 09/13/16 Alprazolam [Xanax] 0.5 mg PO BID 08/24/16 09/13/16 Aspirin Enteric Coated [Aspirin EC] 81 mg PO DAILY 08/24/16 09/13/16 Atorvastatin [Lipitor] 10 mg PO HS 08/24/16 09/13/16 Fluticasone/Salmeterol [Advair 1 each IH BID 08/24/16 09/13/16 500-50 Diskus] Oxygen 3 l NS CONT 08/24/16 09/13/16 predniSONE [PredniSONE] 5 mg PO DAILY 08/24/16 09/13/16 Brimonidine Tartrate [Alphagan P] 1 drop OP BID 09/13/16 09/13/16 Latanoprost [Xalatan] 1 drop OP HS 09/13/16 09/13/16 levoFLOXacin [Levofloxacin] 500 mg PO DAILY 09/13/16 09/13/16 Previous Rx's Medication Instructions Recorded Theophylline Anhydrous [Theodur] 300 mg PO BID #60 tab.er.12h 02/23/16 amLODIPine [Norvasc] 10 mg PO DAILY #60 tablet 08/26/16 predniSONE [PredniSONE] 10 mg PO DAILY #80 tablet 09/18/16 Allergies Allergy/AdvReac Type Severity Reaction Status Date / Time No Known Allergies Allergy Verified 02/28/17 15:12 Constitutional: Reports: fever, chills. Denies: weakness, weight change Eyes: Denies: eye pain, eye discharge, vision change ENT ED: Denies: ear pain, throat pain, dental pain, hearing loss, epistaxis, congestion, dysphagia Cardiovascular: Denies: chest pain, palpitations, dyspnea on exertion, edema, syncope Respiratory: Reports: dyspnea, wheezes. Denies: cough, hemoptysis, stridor Gastrointestinal: Denies: abdominal pain, nausea, vomiting, diarrhea, constipation, hematemesis, melena, hematochezia Genitourinary: Denies: dysuria, frequency, hematuria, discharge Musculoskeletal: Denies: back pain, neck pain, arthralgia, myalgia Integumentary: Denies: rash, abrasion, lesions Neurological: Denies: headache, weakness, numbness, paresthesias, confusion, abnormal gait, vertigo Psychiatric: Denies: anxiety, depression, suicidal thoughts, homicidal thoughts , auditory hallucinations, visual hallucinations Endocrine: Denies: fatigue Hematological/Lymphatic: Denies: easy bleeding, easy bruising Allergic/Immunologic: Denies: facial swelling, urticaria Past Medical History - Past Medical History Medical history: Reports: COPD Surgical history: Reports: appendectomy, cholecystectomy, hysterectomy Psychiatric history: Reports: anxiety, depression LOSS PREVENTION 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: 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: 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 - Social History Smoking Status: Former smoker Smokeless Tobacco Status: No Alcohol use: Reports: none Drug use: Reports: none Physical Exam - General Limitations: no limitations General appearance: alert, in no apparent distress - Head Head exam: atraumatic, normocephalic, normal inspection - Eye Eye exam: Present: normal appearance, PERRL, EOMI - Expanded Eye Exam Pupils: Left: reactive - ENT ENT exam: normal exam, normal oropharynx, mucous membranes moist - Expanded ENT Exam External ear exam: Present: normal external inspection Mouth exam: Present: normal external inspection Teeth exam: Present: normal inspection Throat exam: Present: normal inspection - Neck Neck exam: Present: normal inspection, full ROM, trachea midline - Chest Chest inspection: Present: normal inspection, symmetric chest wall rise - Respiratory Respiratory exam: Present: normal lung sounds bilaterally, wheezes (mild diffuse ) - Cardiovascular Cardiovascular exam: Present: regular rate, normal rhythm, normal heart sounds - Abdominal Exam Abdominal exam: Present: soft, Non-Tender. Absent: tenderness, distention, guarding, rebound, rigidity - Extremities Exam Extremities exam: Present: normal inspection, full ROM. Absent: tenderness, pedal edema - Expanded Upper Extremity Exam Shoulder exam: Present: normal inspection, full ROM Arm exam: Present: normal inspection, full ROM Elbow exam: Present: normal inspection, full ROM Forearm/Wrist exam: Present: normal inspection, full ROM Hand exam: Present: normal inspection, full ROM Vascular exam: Normal: capillary refill, radial pulse - Expanded Lower Extremity Exam Hip/Pelvis exam: Present: normal inspection, full ROM Upper leg exam: Present: normal inspection, full ROM Knee exam: Present: normal inspection, full ROM Lower leg exam: Present: normal inspection, full ROM Ankle exam: Present: normal inspection, full ROM Foot/toe exam: Present: normal inspection, full ROM Neurovascular/Tendon exam: Absent: motor deficit, sensory deficit, tendon deficit - Back Exam Back exam: Present: normal inspection, full ROM. Absent: tenderness - Neurological Exam Neurological exam: Present: alert, oriented X3 - Expanded Neurological Exam Patient oriented to: Present: person, place, time Coma Scale Eye Opening: Spontaneous Coma Scale Motor Response: Obeys Commands Coma Scale Verbal Response: Oriented Coma Scale Total: 15 - Psychiatric Psychiatric exam: Present: normal affect, normal mood - Skin Skin exam: Present: warm, dry, intact, normal color Course Course Narrative: [facility]nea [facility]b and solumedrol - Reevaluation(s) Reevaluation #1: updated resulst to the tasneemnet. She feels like she will decompenstate when she goes home. Tasneemnet states that she would jem ot be admitted for furher treatment. Time: 17:03 - Consultations Consultation #1: discussed case with Dr. Breaux and she has accepted eric to her service. levaquin given for therapy. Time: 17:03 Vital Signs Temperature 98.0 F 02/28/17 15:13 Pulse Rate 60 02/28/17 15:13 Respiratory Rate 22 02/28/17 15:13 Blood Pressure 152/83 02/28/17 15:13 O2 Sat by Pulse Oximetry 93 02/28/17 15:13 Temperature 98.0 F 02/28/17 15:13 Pulse Rate 89 02/28/17 16:44 Respiratory Rate 17 02/28/17 16:44 Blood Pressure 121/77 02/28/17 16:44 O2 Sat by Pulse Oximetry 93 02/28/17 16:44 Oxygen Delivery Oxygen Delivery Nasal Cannula Shortness of Breath/Dyspnea - Lab Data Result diagrams: 02/28/17 15:49 02/28/17 15:49 Lab Results 02/28/17 02/28/17 02/28/17 Range/Units 15:41 15:49 15:49 WBC (4.3-11.1) K/mcL RBC (3.82-4.97) M/mcL Hgb (11.5-15.4) g/dL Hct (35.3-44.9) % MCV (83.0-100.0) fL MCH (28.0-33.3) pg MCHC (31.6-35.5) g/dL RDW (11.5-14.5) % Plt Count (140-400) K/mcL MPV (9.4-12.4) fL Immature Gran % (0-4) % Seg Neutrophils % % Lymphocytes % % Monocytes % % Eosinophils % % Basophils % % Neutrophils # (1.6-8.9) K/mcL Lymphocytes # (0.6-4.6) K/mcL Monocytes # (0.0-1.3) K/mcL Eosinophils # (0.0-0.6) K/mcL Basophils # (0.0-0.2) K/mcL PT 11.4 (9.4-12.1) Seconds INR 1.1 APTT 31.9 (26.0-36.0) Seconds Sodium (136-145) mEq/L Potassium (3.5-4.5) mEq/L Chloride (98-109) mEq/L Carbon Dioxide (19-29) mEq/L BUN (7-20) mg/dL Creatinine (0.57-1.11) mg/dL Est GFR ( Amer) (> 60) Est GFR (Non-Af Amer) (> 60) BUN/Creatinine Ratio (6-26) Glucose (70-99) mg/dL Calculated Osmolality (280-300) Calcium (8.6-10.8) mg/dL Total Bilirubin 0.7 (0.2-1.2) mg/dL Direct Bilirubin 0.3 (0.0-0.5) mg/dL Indirect Bilirubin 0.4 (0.0-1.2) mg/dL AST 17 (5-34) Units/L ALT 14 (0-55) Units/L Alkaline Phosphatase 88 (38-126) Units/L Troponin I (0-0.03) ng/mL B-Natriuretic Peptide (0-100) pg/mL Serum Total Protein 6.9 (6.0-8.3) g/dL Albumin 3.4 L (3.5-5.0) g/dL Globulin 3.5 (2.4-3.5) g/dL Albumin/Globulin Ratio 1.0 L (1.1-2.2) Lipase (8-78) Units/L Urine Color Yellow (Yellow) Urine Clarity Clear (Clear) Urine pH 6.0 (5.0-8.0) pH Units Ur Specific [place] 1.020 (1.010-1.025) Urine Protein Negative (Neg-Trace) mg/dL Urine Glucose (UA) Normal (Normal) mg/dL Urine Ketones Negative (Negative) mg/dL Urine Blood Negative (Negative) Urine Nitrite Negative (Negative) Urine Bilirubin Negative (Negative) Urine Urobilinogen Normal (Normal) mg/dL Ur Leukocyte Esterase Negative (Negative) Ur Culture Indicated? NO (NO) 02/28/17 02/28/17 02/28/17 Range/Units 15:49 15:49 15:49 WBC 10.9 (4.3-11.1) K/mcL RBC 4.63 (3.82-4.97) M/mcL Hgb 12.5 (11.5-15.4) g/dL Hct 40.0 (35.3-44.9) % MCV 86.4 (83.0-100.0) fL MCH 27.0 L (28.0-33.3) pg MCHC 31.3 L (31.6-35.5) g/dL RDW 16.3 H (11.5-14.5) % Plt Count 302 (140-400) K/mcL MPV 10.6 (9.4-12.4) fL Immature Gran % 0.6 (0-4) % Seg Neutrophils % 53.0 % Lymphocytes % 30.1 % Monocytes % 8.1 % Eosinophils % 7.4 % Basophils % 0.8 % Neutrophils # 5.8 (1.6-8.9) K/mcL Lymphocytes # 3.3 (0.6-4.6) K/mcL Monocytes # 0.9 (0.0-1.3) K/mcL Eosinophils # 0.8 H (0.0-0.6) K/mcL Basophils # 0.1 (0.0-0.2) K/mcL PT (9.4-12.1) Seconds INR APTT (26.0-36.0) Seconds Sodium (136-145) mEq/L Potassium (3.5-4.5) mEq/L Chloride (98-109) mEq/L Carbon Dioxide (19-29) mEq/L BUN (7-20) mg/dL Creatinine (0.57-1.11) mg/dL Est GFR ( Amer) (> 60) Est GFR (Non-Af Amer) (> 60) BUN/Creatinine Ratio (6-26) Glucose (70-99) mg/dL Calculated Osmolality (280-300) Calcium (8.6-10.8) mg/dL Total Bilirubin (0.2-1.2) mg/dL Direct Bilirubin (0.0-0.5) mg/dL Indirect Bilirubin (0.0-1.2) mg/dL AST (5-34) Units/L ALT (0-55) Units/L Alkaline Phosphatase (38-126) Units/L Troponin I (0-0.03) ng/mL B-Natriuretic Peptide 231 H (0-100) pg/mL Serum Total Protein (6.0-8.3) g/dL Albumin (3.5-5.0) g/dL Globulin (2.4-3.5) g/dL Albumin/Globulin Ratio (1.1-2.2) Lipase 36 (8-78) Units/L Urine Color (Yellow) Urine Clarity (Clear) Urine pH (5.0-8.0) pH Units Ur Specific [place] (1.010-1.025) Urine Protein (Neg-Trace) mg/dL Urine Glucose (UA) (Normal) mg/dL Urine Ketones (Negative) mg/dL Urine Blood (Negative) Urine Nitrite (Negative) Urine Bilirubin (Negative) Urine Urobilinogen (Normal) mg/dL Ur Leukocyte Esterase (Negative) Ur Culture Indicated? (NO) 02/28/17 02/28/17 Range/Units 15:49 15:49 WBC (4.3-11.1) K/mcL RBC (3.82-4.97) M/mcL Hgb (11.5-15.4) g/dL Hct (35.3-44.9) % MCV (83.0-100.0) fL MCH (28.0-33.3) pg MCHC (31.6-35.5) g/dL RDW (11.5-14.5) % Plt Count (140-400) K/mcL MPV (9.4-12.4) fL Immature Gran % (0-4) % Seg Neutrophils % % Lymphocytes % % Monocytes % % Eosinophils % % Basophils % % Neutrophils # (1.6-8.9) K/mcL Lymphocytes # (0.6-4.6) K/mcL Monocytes # (0.0-1.3) K/mcL Eosinophils # (0.0-0.6) K/mcL Basophils # (0.0-0.2) K/mcL PT (9.4-12.1) Seconds INR APTT (26.0-36.0) Seconds Sodium 141 (136-145) mEq/L Potassium 4.6 H (3.5-4.5) mEq/L Chloride 104 (98-109) mEq/L Carbon Dioxide 30 H (19-29) mEq/L BUN 14 (7-20) mg/dL Creatinine 0.99 (0.57-1.11) mg/dL Est GFR ( Amer) > 60 (> 60) Est GFR (Non-Af Amer) 55 L (> 60) BUN/Creatinine Ratio 14 (6-26) Glucose 97 (70-99) mg/dL Calculated Osmolality 292 (280-300) Calcium 10.2 (8.6-10.8) mg/dL Total Bilirubin (0.2-1.2) mg/dL Direct Bilirubin (0.0-0.5) mg/dL Indirect Bilirubin (0.0-1.2) mg/dL AST (5-34) Units/L ALT (0-55) Units/L Alkaline Phosphatase (38-126) Units/L Troponin I 0.01 (0-0.03) ng/mL B-Natriuretic Peptide (0-100) pg/mL Serum Total Protein (6.0-8.3) g/dL Albumin (3.5-5.0) g/dL Globulin (2.4-3.5) g/dL Albumin/Globulin Ratio (1.1-2.2) Lipase (8-78) Units/L Urine Color (Yellow) Urine Clarity (Clear) Urine pH (5.0-8.0) pH Units Ur Specific [place] (1.010-1.025) Urine Protein (Neg-Trace) mg/dL Urine Glucose (UA) (Normal) mg/dL Urine Ketones (Negative) mg/dL Urine Blood (Negative) Urine Nitrite (Negative) Urine Bilirubin (Negative) Urine Urobilinogen (Normal) mg/dL Ur Leukocyte Esterase (Negative) Ur Culture Indicated? (NO) - EKG Data EKG attestation: Yes I reviewed and interpreted this EKG. EKG results narrative: NSR with rate of 66 NO STEMI. normla intervls. no old ekg. 1387
[2017-02-28] MEDS ORDERED: Levofloxacin 750 MG/150 ML 750 MG/150 ML BAG IVPB ONE (16:54)
[2017-02-28] MEDS ORDERED: Naloxone 0.4 MG/ML INJ IVP PRN (19:39)
--- NOTE | 2017-02-28 22:38 | Internal Med History&Physical ---
<Oj Miranda J - Last Filed: 02/28/17 22:36> Date of Encounter: 02/28/17 Time of Encounter: 22:36 Assessment and Plan (1) COPD exacerbation Current visit: Yes Status: Acute Acute chronic exacerbation of COPD. Patient presented to [facility] with 3 day history of increasing in shortness of breath and increasing dyspnea with activity. Chest x-ray did reveal atelectasis versus pneumonia. She does have worsening expiratory wheezes and an increased prolonged expiratory phase. Received SOLUMedrol IV injection 125 mg and ED dUOnebs every 4 hours scheduled AND albuterol Q2 prn Solu-Medrol 60 mg IV push Q8HR Levaquin 750 mg IVPB every 24 hours Continuous telemetry, OXYGEN THERAPY at 3LNC as per her home dose Continuous pulse ox Every 4 vital (2) Community acquired pneumonia Current visit: No Status: Acute Mild bibasilar airspace disease which could represent pneumonia. The patient does have a history of COPD she is at risk for rate acquired pneumonia. Will continue Levaquin 750 mg IV piggyback every 24 hours. Duo nebs every 4 hours scheduled Solu-Medrol 40 mg IV push daily Qualifiers: Laterality: right Lung location: unspecified part of lung Qualified Code( s): J18.9 - Pneumonia, unspecified organism (3) DVT prophylaxis Current visit: Yes Status: Acute Due to hospital stay and prolonged immobility patient is at risk for DVT. We will place the patient on Lovenox 40 mg subcutaneous daily Internal Medicine - H&P: HPI Chief complaint: SOB Admitted From: Home Plans for Post Hospital Care: Home History of present illness: Ms. Kaye is a 71 year old female Past Med Surg Social Fam HX - Past Medical History Medical history: COPD Psychiatric history: anxiety, depression - Past Surgical History Surgical History: appendectomy, cholecystectomy, hysterectomy - Social History Smoking Status: Former smoker Smokeless Tobacco Status: No Alcohol use: none Drug use: none - Family History Mother Adopted: No Family Member Ethnicity: Non- Living Status: Age at : 89 Cause of : colon cancer Hx Family Cardiac Disorders: No Hx Family Respiratory Disorders: No Hx Family Cancer: Yes Hx Family GI Disorders: No Hx Family Endocrine Disorder: No Hx Family Neuromuscular Disorders: No Hx Family Neurologic Disorders: No Hx Family HEENT Disorders: No Hx Family Autoimmune Disorders: No Father Adopted: No Living Status: Age at : 59 Cause of : Esophageal cancer Hx Family Cardiac Disorders: Yes (Brother- possible [place] Hx Family Respiratory Disorders: Yes Hx Family Cancer: Yes Hx Family GI Disorders: Yes (multiple relatives r/t colon " problems") Brother Adopted: No Living Status: Hx Family Endocrine Disorder: Yes (dm) Internal Medicine - H&P: Meds Albuterol Neb [Proventil Neb] 2.5 mg IH TID 02/07/15 [History] Albuterol Sulfate [Albuterol Inhaler] 2 puff IH Q4HR PRN 02/07/15 [History] Tiotropium [Spiriva] 18 mcg IH DAILY 02/07/15 [History] Acetylcysteine [N-Zkxyge-f-Cysteine] 600 mg PO BID 09/16/15 [History] Ibandronate Sodium 150 mg PO QMONTH 02/16/16 [History] Alprazolam [Xanax] 1 mg PO BID PRN 08/24/16 [History] Aspirin Enteric Coated [Aspirin EC] 81 mg PO DAILY 08/24/16 [History] Atorvastatin [Lipitor] 10 mg PO HS 08/24/16 [History] Fluticasone/Salmeterol [Advair 500-50 Diskus] 1 each IH BID 08/24/16 [History] Oxygen 3 l NS CONT 08/24/16 [History] predniSONE [PredniSONE] 5 mg PO DAILY 08/24/16 [History] Citalopram Hydrobromide [Citalopram HBr] 40 mg PO DAILY 02/28/17 [History] Fluticasone Propionate Nasal [Flonase] 50 mcg NS DAILY 02/28/17 [History] Loratadine [Claritin] 10 mg PO DAILY 02/28/17 [History] Montelukast [Singulair] 10 mg PO HS 02/28/17 [History] Theophylline Anhydrous [Theophylline] 400 mg PO DAILY 02/28/17 [History] 3 Allergy/AdvReac Type Severity Reaction Status Date / Time No Known Allergies Allergy Verified 02/28/17 15:12 All Systems PM: A 10-system review of systems was performed and is negative for pertinent findings except as documented above in the HPI. - Constitutional Constitutional: no chills, no fever(s), no night sweats - EENT Eyes: no change in vision, no discharge, no pain, no photophobia Ears: no ear discharge, no ear pain, no tinnitus Nose, mouth and throat: no dysphagia, no nasal discharge, no neck pain, no sore throat - Cardiovascular Cardiovascular ROS IM: no chest pain, no diaphoresis, no edema, no lightheadedness, no palpitations, no syncope - Respiratory Respiratory: cough (Nonproductive), dyspnea, wheezing (Reported as worse than normal), no stridor, no pain on inspiration, no chest congestion, no excessive phlegm production, no pain with cough - Gastrointestinal Gastrointestinal: no abdominal pain, no diarrhea, no hematemesis, no hematochezia, no melena, no nausea, no vomiting - Genitourinary Genitourinary: no change in urinary stream, no dysuria, no flank pain, no hematuria - Musculoskeletal Musculoskeletal ROS IM: no numbness, no tingling - Integumentary Integumentary IM: no rash, no unusual bruising - Neurological Neurological ROS: no confusion, no convulsions, no focal weakness, no numbness, no tingling, no tremor(s) - Hematologic/Lymphatic Hematologic/Lymphatic: no easy bruising - Constitutional Vitals: Temp Pulse Resp BP Pulse Ox 98.2 F 63 14 157/82 98 02/28/17 18:32 02/28/17 18:32 02/28/17 18:32 02/28/17 18:32 02/28/17 18:32 General appearance: Present: cooperative, mild distress, A&O X 3, answers questions appropriately - Head Head exam: Present: atraumatic, normocephalic - Eye Eye exam: Present: PERRL, conjuntiva pink, sclera anicteric Pupils: Present: PERRL - Neck Neck exam general surgery: Present: supple, trachea midline. Absent: lymphadenopathy - Respiratory Respiratory exam: Present: decreased breath sounds, prolonged expiratory phase ( Prolonged expiratory phase and wheezes noted.), wheezes. Absent: accessory muscle use, rales, rhonchi - Cardiovascular Cardiovascular exam: Present: RRR, +S1, +S2. Absent: diastolic murmur, gallop, rubs, systolic murmur - GI/Abdominal GI/Abdominal exam: Present: normal bowel sounds, soft, no peritoneal signs. Absent: distended, tenderness - Extremities Exam Extremities exam: Present: warm, radial pulses palpable and symmetrical. Absent : calf tenderness, cyanotic, pedal edema - Neurological Exam Neurological exam: Present: CN II-XII intact, oriented X3, no focal deficits. Absent: pronater drift, facial droop, speech deficit - Skin Skin exam: Present: dry, intact Internal Med - H&P Results - Labs CBC & Chem 7: 02/28/17 15:49 02/28/17 15:49 Labs: Cardiac Enzymes 02/28/17 Range/Units 22:03 Troponin I 0.00 (0-0.03) ng/mL - Diagnostic Studies Chest x-ray Additional comments: Reveals atelectasis versus pneumonia <Vinny Rothman - Last Filed: 03/01/17 05:03> Date of Encounter: 03/01/17 Internal Medicine - H&P: HPI History of present illness: Ms. Kaye is a 71 year old female All Systems PM: A 10-system review of systems was performed and is negative for pertinent findings except as documented above in the HPI. - Constitutional Vitals: Temp Pulse Resp BP Pulse Ox 97.5 F L 58 14 116/70 95 03/01/17 04:36 03/01/17 04:36 03/01/17 04:36 03/01/17 04:36 03/01/17 04:36 Internal Med - H&P Results - Labs CBC & Chem 7: 03/01/17 04:06 02/28/17 15:49 Labs: Short CBC 03/01/17 Range/Units 04:06 WBC 7.7 (4.3-11.1) K/mcL Hgb 11.9 (11.5-15.4) g/dL Hct 38.2 (35.3-44.9) % Plt Count 288 (140-400) K/mcL Neutrophils # 6.5 (1.6-8.9) K/mcL Cardiac Enzymes 02/28/17 Range/Units 22:03 Troponin I 0.00 (0-0.03) ng/mL - Attending Attestation I have personally and independently seen and examined the patient and discussed the plan withpractitioner. Patient came in with the dyspnea and chest examination shows relatively clear chest however patient already has received some nebulizer treatment and steroids. Will keep patient on IV steroid minutes medicineAntibiotics and see if she can be discharged soon. Her lab work reviewed.
[2017-02-28] MEDS: ALPRAZolam 1 MG TABLET PO PRN (23:28)
[2017-02-28] MEDS: methylPREDNISolone 125 MG/2 ML VIAL IVP SCH (23:31)
[2017-03-01] MEDS: Ipratropium/Albuterol Neb 3 ML IH SCH ×7 (00:13→23:29)
[2017-03-01 04:55] LABS: Basophils % 0.3 %; Hematocrit 38.2 % (35.3-44.9); Hemoglobin 11.9 g/dL (11.5-15.4); Immature Granulocytes % 1.6 % (0-4); Lymphocytes % 12.5 %; Mean Corpuscular HGB Conc 31.2 g/dL (31.6-35.5); Mean Corpuscular Hemoglobin 26.7 pg (28.0-33.3); Mean Corpuscular Volume 85.7 fL (83.0-100.0); Mean Platelet Volume 10.6 fL (9.4-12.4); Monocytes # 0.1 K/mcL (0.0-1.3); Neutrophils # 6.5 K/mcL (1.6-8.9); Platelet Count 288 K/mcL (140-400); Red Blood Count 4.46 M/mcL (3.82-4.97); Red Cell Distribution Width 16.1 % (11.5-14.5); Segmented Neutrophils % 84.6 %
[2017-03-01 05:19] LABS: BUN/Creatinine Ratio 19 (6-26); Blood Urea Nitrogen 19 mg/dL (7-20); Calcium 9.7 mg/dL (8.6-10.8); Carbon Dioxide 27 mEq/L (19-29); Chloride 103 mEq/L (98-109); Glucose 202 mg/dL (70-99); Osmolality,Calculated 294 (280-300); Potassium 4.5 mEq/L (3.5-4.5); Sodium 138 mEq/L (136-145); eGFR For African Americans > 60 (> 60); eGFR For Non-African Americans 54 (> 60)
[2017-03-01] MEDS: *HR* Enoxaparin 40 MG/0.4 ML SYRINGE SQ SCH (06:10)
[2017-03-01] MEDS: methylPREDNISolone 125 MG/2 ML VIAL IVP SCH ×2 (08:58→17:25)
[2017-03-01] MEDS: Loratadine 10 MG TABLET PO SCH (08:59)
[2017-03-01] MEDS: Aspirin Enteric Coated 81 MG Tablet PO SCH (08:59)
[2017-03-01] MEDS ORDERED: predniSONE 5 MG TABLET PO SCH (09:00)
[2017-03-01] MEDS ORDERED: MethylPREDNISolone 40 MG/ML VIAL IVP SCH (09:00)
[2017-03-01] MEDS: *HR* Acetylcysteine 20% 600 MG/3 ML ORAL SYRINGE PO SCH ×2 (11:55→20:38)
[2017-03-01] MEDS: Fluticasone Propionate Nasal 50 MCG/SPRAY BOTTLE NS SCH (11:55)
--- NOTE | 2017-03-01 15:59 | Electrocardiograph Report ---
[place] [address] Test Date: 2017-02-28 Pat Name: Kimberly Kaye Department: 104 Room: 3A Gender: F Clinical Nutritionist: DAI : 1945 Requested By: Kami Arevalo Order Number: [id number] Reading MD: Juan Alberto Tamayo DO Measurements Intervals [place] Rate: 66 P: -80 SC: 114 QRS: -28 QRSD: 92 T: 59 QT: 409 QTc: 423 Interpretive Statements Probable sinus rhythm with a short SC interval Leftward axix Electronically Signed On 03-01-2017 15:57:12 EDT by Juan Alberto Tamayo DO
[2017-03-01] MEDS ORDERED: Levofloxacin 750 MG/150 ML 750 MG/150 ML BAG IVPB SCH (17:00)
--- NOTE | 2017-03-01 17:21 | Internal Med Progress Note ---
<Claire Lyle - Last Filed: 03/01/17 17:30> Date of Encounter: 03/01/17 Time of Encounter: 10:20 - Assessment and plan (1) Acute exacerbation of chronic obstructive airways disease Current Visit: No Status: Resolved Assessment and plan: Patient is on home NC 3L and noticed yesterday at home her pulse ox reading of 88. Currenlyt she is on NC3L 93-97%. Will continue on IV steroids, Duoneb treatments, Singular, Theophylline. Stop home spiriva, Acetylcysteine, and Advair. Plan: - Albuterol Q2H prn, DuoNeb Q4H scheduled - Solumedrol IV 40mg daily - Singuilar - Thophylline (2) DVT prophylaxis Current Visit: Yes Status: Acute Assessment and plan: Lovenox (3) Community acquired pneumonia Current Visit: No Status: Acute Assessment and plan: Presented with increase productive cough for 3 days and change in sputum to thick green. CXR showed mild bibasilar airspace, represent atelectesis vs. pneumonia due to patient's symptoms patient most likely has CAP causing her COPD exacerbation. She has not been hospitalized since August and is not on antibiotics at home therefore not a high risk for pneudomonas will begin on Levaquin. Plan: - Levaquin 750mg IV - Flonase - Mucinex Qualifiers: Laterality: right Lung location: unspecified part of lung Qualified Code( s): J18.9 - Pneumonia, unspecified organism (4) Anxiety and depression Current Visit: Yes Status: Acute Assessment and plan: Stable on home medications will continue Xanax and Celexa. - Subjective Interval history: Patient is a 71-year-old female with a history of COPD and is steroid and oxygen dependent on 3L NC continuously presented to the ED with 3 days of productive cough with green thick sputum and was admitted for COPD exacerbation and CAP. Overnight no acute events. Patient is breathing a little bit better and had not been coughing this morning. - Constitutional Vitals: Temp Pulse Resp BP Pulse Ox 97.8 F 81 18 130/63 94 03/01/17 14:48 03/01/17 14:48 03/01/17 16:06 03/01/17 14:48 03/01/17 16:06 General appearance: Present: cooperative, mild distress, A&O X 3, answers questions appropriately Exam: Constitutional: Alert, in no acute distress, well nourished, well developed. Head: Normocephalic, atraumatic, normal contour and symmetric, no masses, lesions or scars Heart: Normal, regular rate and rhythm, no murmurs Lungs: + diffuse wheezes and decrease breath sounds at bases, + inhaling and holding breath then blowing out through pursed lips, no rales, or rhonchi Abdomen: Soft, nondistended, nontender, and no masses palpable, bowel sounds present and normal, no guarding or rigidity. Extremities: No clubbing, cyanosis, or edema, radial pulse +2/4, capillary refill <2sec. Skin: +mulitple bruises on her arms and some on chest, Skin warm and dry, no lesions, no rashes, no jaundice Neurologic: Cranial nerves II through XII grossly intact, no focal deficits, strength within normal limits in all extremities Psych: Cooperative with exam, good eye contact, cognitive function intact, judgment good insight good, speech clear, thought process logical, and goal directed Internal Medicine: Result - Labs CBC & Chem 7: 03/01/17 04:06 03/01/17 04:06 Labs: Short CBC 03/01/17 Range/Units 04:06 WBC 7.7 (4.3-11.1) K/mcL Hgb 11.9 (11.5-15.4) g/dL Hct 38.2 (35.3-44.9) % Plt Count 288 (140-400) K/mcL Neutrophils # 6.5 (1.6-8.9) K/mcL BMP 03/01/17 04:06 Sodium 138 Potassium 4.5 Chloride 103 Carbon Dioxide 27 BUN 19 Creatinine 1.02 Glucose 202 H Calcium 9.7 Cardiac Enzymes 02/28/17 03/01/17 Range/Units 22:03 04:06 Troponin I 0.00 0.00 (0-0.03) ng/mL - ABG Interpretation ABG results: PT/INR, D-dimer PT 11.4 Seconds (9.4-12.1) 02/28/17 15:49 Consult Discharge Plan - Plan Referrals: NONE,PCP [Primary Care Provider] - <Junito Stiles - Last Filed: 03/01/17 20:02> Date of Encounter: 03/01/17 - Constitutional Vitals: Temp Pulse Resp BP Pulse Ox 97.8 F 81 18 130/63 94 03/01/17 14:48 03/01/17 14:48 03/01/17 16:06 03/01/17 14:48 03/01/17 16:06 Internal Medicine: Result - Labs CBC & Chem 7: 03/01/17 04:06 03/01/17 04:06 Labs: Short CBC 03/01/17 Range/Units 04:06 WBC 7.7 (4.3-11.1) K/mcL Hgb 11.9 (11.5-15.4) g/dL Hct 38.2 (35.3-44.9) % Plt Count 288 (140-400) K/mcL Neutrophils # 6.5 (1.6-8.9) K/mcL BMP 03/01/17 04:06 Sodium 138 Potassium 4.5 Chloride 103 Carbon Dioxide 27 BUN 19 Creatinine 1.02 Glucose 202 H Calcium 9.7 Cardiac Enzymes 02/28/17 03/01/17 Range/Units 22:03 04:06 Troponin I 0.00 0.00 (0-0.03) ng/mL - ABG Interpretation ABG results: PT/INR, D-dimer PT 11.4 Seconds (9.4-12.1) 02/28/17 15:49 - Attending Attestation I have independently seen and examined this patient on 03/01/17, reviewed the EMR and discussed plan of care with the patient and resident physician Seen and evaluated at bedside 71 F, O2 dependent, steroid dependent, COPD, CAD, anxiety depression She is admitted and being managed for COPDE and pneumonia She has no new complains, she still feels chest tightness, but she is mildly improved from admission. Physical exam: VSS, HEENT: Mosit mucosa, not cyanotic, Chest with diffuse wheezing, air tightness, HS S1, S2 only, no m/g/r, abdomen is benign. She has no pedal edema. No gross neurologic deficits Labs and Imaging reviewed: CBC WNL, Coag panel WNL, Chem WNL, UA is clean. CXR with bibasilar airspace disease A/P: COPDE/Pneumonia: Continue current care. Rest of details as in resident physicians documentation
[2017-03-01] MEDS: ALPRAZolam 1 MG TABLET PO PRN (23:06)
[2017-03-02] MEDS: methylPREDNISolone 125 MG/2 ML VIAL IVP SCH ×2 (00:21→08:07)
[2017-03-02] MEDS: Ipratropium/Albuterol Neb 3 ML IH SCH ×6 (03:32→23:22)
[2017-03-02] MEDS: *HR* Enoxaparin 40 MG/0.4 ML SYRINGE SQ SCH (06:12)
[2017-03-02] MEDS: Loratadine 10 MG TABLET PO SCH (08:07)
[2017-03-02] MEDS: Aspirin Enteric Coated 81 MG Tablet PO SCH (08:08)
[2017-03-02] MEDS: Fluticasone Propionate Nasal 50 MCG/SPRAY BOTTLE NS SCH (08:16)
--- NOTE | 2017-03-02 09:56 | Internal Med Progress Note ---
<Claire Lyle - Last Filed: 03/02/17 14:31> Date of Encounter: 03/02/17 Time of Encounter: 09:54 - Assessment and plan (1) Acute exacerbation of chronic obstructive airways disease Current Visit: No Status: Resolved Assessment and plan: Patient is on home NC 3L and noticed yesterday at home her pulse ox reading of 88. Currenlyt she is on NC3L 93-97%. Initially on IV steroids, Duoneb treatments , Singular, Theophylline. Stop home spiriva, Acetylcysteine, and Advair. Will switch to oral steroids today. Plan: - Albuterol Q2H prn, DuoNeb Q4H scheduled - Prednisone 60mg PO QD - Singuilar - Thophylline (2) DVT prophylaxis Current Visit: Yes Status: Acute Assessment and plan: Lovenox (3) Community acquired pneumonia Current Visit: No Status: Acute Assessment and plan: Presented with increase productive cough for 3 days and change in sputum to thick green. CXR showed mild bibasilar airspace, represent atelectesis vs. pneumonia due to patient's symptoms patient most likely has CAP causing her COPD exacerbation. She has not been hospitalized since August and is not on antibiotics at home therefore not a high risk for pneudomonas will begin on Levaquin. Plan: - Levaquin 750mg IV - Flonase - Mucinex Qualifiers: Laterality: right Lung location: unspecified part of lung Qualified Code( s): J18.9 - Pneumonia, unspecified organism (4) Anxiety and depression Current Visit: Yes Status: Acute Assessment and plan: Stable on home medications will continue Xanax and Celexa. - Subjective Interval history: Patient is a 71-year-old female with a history of COPD and is steroid and oxygen dependent on 3L NC continuously presented to the ED with 3 days of productive cough with green thick sputum and was admitted for COPD exacerbation and CAP. Overnight no acute events. Patient is breathing a little bit better but has been unable to get any sputum of. She feels like there is mucus in her lungs that is stuck there. Patient has been able to get up and walk to the bathroom she feels short of breath but denies dizziness. Denies chest pain, nausea, vomiting. - Constitutional Vitals: Temp Pulse Resp BP Pulse Ox 97.9 F 76 16 176/87 98 03/02/17 07:13 03/02/17 07:13 03/02/17 08:00 03/02/17 07:13 03/02/17 08:00 General appearance: Present: cooperative, mild distress, A&O X 3, answers questions appropriately Exam: Constitutional: Alert, in no acute distress, well nourished, well developed. Head: Normocephalic, atraumatic, normal contour and symmetric, no masses, lesions or scars Heart: Normal, regular rate and rhythm, no murmurs Lungs: + diffuse wheezes and decrease breath sounds at bases, + inhaling and holding breath then blowing out through pursed lips, no rales, or rhonchi Abdomen: Soft, nondistended, nontender, and no masses palpable, bowel sounds present and normal, no guarding or rigidity. Extremities: No clubbing, cyanosis, or edema, radial pulse +2/4, capillary refill <2sec. Skin: +mulitple bruises on her arms and some on chest, Skin warm and dry, no lesions, no rashes, no jaundice Neurologic: Cranial nerves II through XII grossly intact, no focal deficits, strength within normal limits in all extremities Psych: Cooperative with exam, good eye contact, cognitive function intact, judgment good insight good, speech clear, thought process logical, and goal directed Internal Medicine: Result - Labs CBC & Chem 7: 03/01/17 04:06 03/01/17 04:06 - ABG Interpretation ABG results: PT/INR, D-dimer PT 11.4 Seconds (9.4-12.1) 02/28/17 15:49 Consult Discharge Plan - Plan Referrals: NONE,PCP [Primary Care Provider] - <Junito Stiles - Last Filed: 03/02/17 14:57> Date of Encounter: 03/02/17 - Constitutional Vitals: Temp Pulse Resp BP Pulse Ox 97.8 F 77 18 181/74 94 03/02/17 11:19 03/02/17 11:19 03/02/17 11:19 03/02/17 11:19 03/02/17 11:19 Internal Medicine: Result - Labs CBC & Chem 7: 03/01/17 04:06 03/01/17 04:06 - ABG Interpretation ABG results: PT/INR, D-dimer PT 11.4 Seconds (9.4-12.1) 02/28/17 15:49 - Attending Attestation I have independently seen and examined this patient on 03/02/17, reviewed the EMR and discussed plan of care with the patient and resident physician Seen and evaluated at bedside 71 F, O2 dependent, steroid dependent, COPD, CAD, anxiety depression She is admitted and being managed for COPDE and pneumonia She has no new complains, she still feels chest tightness, but she is mildly improved from admission. Physical exam: VSS, HEENT: Mosit mucosa, not cyanotic, Chest is CTAB today, , HS S1, S2 only, no m/g/r, abdomen is benign. She has no pedal edema. No gross neurologic deficits Labs and Imaging reviewed: CBC WNL, Coag panel WNL, Chem WNL, UA is clean. CXR with bibasilar airspace disease A/P: COPDE/Pneumonia: Continue current care. Change steroids to po. Rest of details as in resident physicians documentation
[2017-03-02] MEDS: *HR* Acetylcysteine 20% 600 MG/3 ML ORAL SYRINGE PO SCH ×2 (10:42→21:45)
[2017-03-02] MEDS: Levofloxacin 750 MG/150 ML 750 MG/150 ML BAG IVPB SCH (16:54)
[2017-03-02] MEDS: ALPRAZolam 1 MG TABLET PO PRN (20:55)
[2017-03-03] MEDS: Ipratropium/Albuterol Neb 3 ML IH SCH ×6 (03:26→23:49)
[2017-03-03] MEDS ORDERED: amLODIPine 5 MG TABLET PO ONE (04:17)
[2017-03-03] MEDS: *HR* Enoxaparin 40 MG/0.4 ML SYRINGE SQ SCH (04:38)
[2017-03-03 06:20] LABS: Basophils # 0.1 K/mcL (0.0-0.2); Basophils % 0.4 %; Eosinophils % 0.1 %; Hematocrit 38.3 % (35.3-44.9); Hemoglobin 12.2 g/dL (11.5-15.4); Immature Granulocytes % 1.7 % (0-4); Lymphocytes # 2.9 K/mcL (0.6-4.6); Lymphocytes % 12.5 %; Mean Corpuscular HGB Conc 31.9 g/dL (31.6-35.5); Mean Corpuscular Hemoglobin 27.5 pg (28.0-33.3); Mean Corpuscular Volume 86.5 fL (83.0-100.0); Mean Platelet Volume 10.9 fL (9.4-12.4); Monocytes # 1.8 K/mcL (0.0-1.3); Monocytes % 7.8 %; Neutrophils # 17.8 K/mcL (1.6-8.9); Platelet Count 314 K/mcL (140-400); Red Blood Count 4.43 M/mcL (3.82-4.97); Red Cell Distribution Width 16.9 % (11.5-14.5); Segmented Neutrophils % 77.5 %
[2017-03-03 06:29] LABS: BUN/Creatinine Ratio 23 (6-26); Blood Urea Nitrogen 20 mg/dL (7-20); Calcium 9.5 mg/dL (8.6-10.8); Carbon Dioxide 29 mEq/L (19-29); Chloride 104 mEq/L (98-109); Glucose 95 mg/dL (70-99); Osmolality,Calculated 294 (280-300); Potassium 3.9 mEq/L (3.5-4.5); Sodium 141 mEq/L (136-145); eGFR For African Americans > 60 (> 60); eGFR For Non-African Americans > 60 (> 60)
[2017-03-03] MEDS: predniSONE 20 MG TABLET PO SCH (08:00)
[2017-03-03] MEDS: Loratadine 10 MG TABLET PO SCH (08:00)
[2017-03-03] MEDS: Aspirin Enteric Coated 81 MG Tablet PO SCH (08:00)
[2017-03-03] MEDS: amLODIPine 5 MG TABLET PO SCH (08:00)
[2017-03-03] MEDS: Fluticasone Propionate Nasal 50 MCG/SPRAY BOTTLE NS SCH (08:02)
[2017-03-03] MEDS: *HR* Acetylcysteine 20% 600 MG/3 ML ORAL SYRINGE PO SCH ×2 (08:27→22:52)
[2017-03-03] MEDS ORDERED: amLODIPine 5 MG TABLET PO SCH (09:00)
--- NOTE | 2017-03-03 09:46 | Internal Med Progress Note ---
<Claire Lyle - Last Filed: 03/03/17 14:00> Date of Encounter: 03/03/17 Time of Encounter: 09:43 - Assessment and plan (1) Acute exacerbation of chronic obstructive airways disease Current Visit: No Status: Resolved Assessment and plan: Patient is on home NC 3L and noticed yesterday at home her pulse ox reading of 88. Currenlyt she is on NC3L 93-97%. Initially on IV steroids, Duoneb treatments , Singular, Theophylline. Stop home spiriva, Acetylcysteine, and Advair. Switched to oral prednisone 40mg PO QD 03/03. Plan: - Albuterol Q2H prn, DuoNeb Q4H scheduled - Prednisone 40mg PO QD - Singuilar - Thophylline (2) DVT prophylaxis Current Visit: Yes Status: Acute Assessment and plan: Lovenox (3) Community acquired pneumonia Current Visit: No Status: Acute Assessment and plan: Presented with increase productive cough for 3 days and change in sputum to thick green. CXR showed mild bibasilar airspace, represent atelectesis vs. pneumonia due to patient's symptoms patient most likely has CAP causing her COPD exacerbation. She has not been hospitalized since August and is not on antibiotics at home therefore not a high risk for pneudomonas will begin on Levaquin. Patient's white blood cell count was elevated today at 22.9 from 7.5 most likely due to steroid use but will continue to monitor for other signs of worsening infection. Plan: - Levaquin 750mg IV (03/02) - Flonase - Mucinex Qualifiers: Laterality: right Lung location: unspecified part of lung Qualified Code( s): J18.9 - Pneumonia, unspecified organism (4) Anxiety and depression Current Visit: Yes Status: Acute Assessment and plan: Stable on home medications will continue Xanax and Celexa. (5) Elevated blood pressure reading Current Visit: Yes Status: Acute Assessment and plan: Night of 03/02, patient's blood pressure was 223/93. Patient was given 10 mg of hydralazine at 21:08. Then Norvasc 5mg at 03/03 04:28. Patient will be started on 10 mg of Norvasc by mouth daily. Patient's high blood pressure is most likely due to being on steroids, stress as she had an anxiety attack during this time and was also anxious due to the new onset of bloody tinged sputum. Plan: - Norvasc 10mg PO daily - Hydralazine 10mg IV Q6h prn - Subjective Interval history: Patient is a 71-year-old female with a history of COPD and is steroid and oxygen dependent on 3L NC continuously presented to the ED with 3 days of productive cough with green thick sputum and was admitted for COPD exacerbation and CAP. Overnight patient had hypertensive urgency with a blood pressure of 222/93 and was given Norvasc 5 mg which decreased blood pressure to 173/77. Patient states that when her blood pressure is elevated was after walking from the bathroom and she was short of breath and is having trouble catching her breath. Patient states that after she saw but her blood pressure was in the 170s she had an anxiety attack which facilitated her blood pressure increasing. Patient states last name that she also had a small amount of blood tinged sputum for the first time which also scared her. Typically at home patient's blood pressure runs systolics of 120s to 130s. Patient is breathing a little bit better. Patient has been able to get up and walk to the bathroom she feels short of breath but denies dizziness. Denies chest pain, nausea, vomiting. - Constitutional Vitals: Temp Pulse Resp BP Pulse Ox 97.6 F 74 20 186/79 97 03/03/17 07:03 03/03/17 07:03 03/03/17 07:03 03/03/17 07:03 03/03/17 08:49 General appearance: Present: cooperative, mild distress, A&O X 3, answers questions appropriately Exam: Constitutional: Alert, in no acute distress, well nourished, well developed. Head: Normocephalic, atraumatic, normal contour and symmetric, no masses, lesions or scars Heart: Normal, regular rate and rhythm, no murmurs Lungs: + diffuse wheezes less than days prior and decrease breath sounds at bases, + inhaling and holding breath then blowing out through pursed lips, no rales, or rhonchi Abdomen: Soft, nondistended, nontender, and no masses palpable, bowel sounds present and normal, no guarding or rigidity. Extremities: No clubbing, cyanosis, or edema, radial pulse +2/4, capillary refill <2sec. Skin: +mulitple bruises on her arms of which number is increasing, Skin warm and dry, no lesions, no rashes, no jaundice Neurologic: Cranial nerves II through XII grossly intact, no focal deficits, strength within normal limits in all extremities Psych: Cooperative with exam, good eye contact, cognitive function intact, judgment good insight good, speech clear, thought process logical, and goal directed Internal Medicine: Result - Labs CBC & Chem 7: 03/03/17 05:52 03/03/17 05:52 Labs: Short CBC 03/03/17 Range/Units 05:52 WBC 22.9 H D (4.3-11.1) K/mcL Hgb 12.2 (11.5-15.4) g/dL Hct 38.3 (35.3-44.9) % Plt Count 314 (140-400) K/mcL Neutrophils # 17.8 H (1.6-8.9) K/mcL BMP 03/03/17 05:52 Sodium 141 Potassium 3.9 Chloride 104 Carbon Dioxide 29 BUN 20 Creatinine 0.87 Glucose 95 Calcium 9.5 - ABG Interpretation ABG results: PT/INR, D-dimer PT 11.4 Seconds (9.4-12.1) 02/28/17 15:49 Consult Discharge Plan - Plan Referrals: Ronel Arce MD [Partnered Physician] - 03/13/17 10:45 am <Junito Stiles - Last Filed: 03/03/17 14:18> Date of Encounter: 03/03/17 - Constitutional Vitals: Temp Pulse Resp BP Pulse Ox 97.9 F 63 16 134/71 94 03/03/17 10:39 03/03/17 10:39 03/03/17 11:36 03/03/17 10:39 03/03/17 11:36 Internal Medicine: Result - Labs CBC & Chem 7: 03/03/17 05:52 03/03/17 05:52 Labs: Short CBC 03/03/17 Range/Units 05:52 WBC 22.9 H D (4.3-11.1) K/mcL Hgb 12.2 (11.5-15.4) g/dL Hct 38.3 (35.3-44.9) % Plt Count 314 (140-400) K/mcL Neutrophils # 17.8 H (1.6-8.9) K/mcL BMP 03/03/17 05:52 Sodium 141 Potassium 3.9 Chloride 104 Carbon Dioxide 29 BUN 20 Creatinine 0.87 Glucose 95 Calcium 9.5 - ABG Interpretation ABG results: PT/INR, D-dimer PT 11.4 Seconds (9.4-12.1) 02/28/17 15:49 - Attending Attestation I have independently seen and examined this patient on 03/03/17, reviewed the EMR and discussed plan of care with the patient and resident physician Seen and evaluated at bedside 71 F, O2 dependent, steroid dependent, COPD, CAD, anxiety depression She is admitted and being managed for COPDE and pneumonia She has no new complains, she had a panic/anxiety attack overnight with elevated blood pressure requiring IV hydralazine. She is otherwise "just tired and wants to rest Otherwise, she is clinically improving Physical exam: VSS, HEENT: Moist mucosa, not cyanotic, Chest is CTAB today, HS S1, S2 only, no m/g/r, abdomen is benign. She has no pedal edema. No gross neurological deficits Labs and Imaging reviewed: CBC : Leukocytosis with left shift, Hb is stable, Chem WNL A/P: COPDE/Pneumonia: Continue current care. Leukocytosis: possibly secondary to high dose steroids , patient is afebrile and clinically improving, continue to monitor Elevated blood pressure: Continue Norvasc Rest of details as in resident physicians documentation
[2017-03-03] MEDS: ALPRAZolam 1 MG TABLET PO PRN (21:53)
[2017-03-04] MEDS: Ipratropium/Albuterol Neb 3 ML IH SCH ×6 (03:40→23:40)
[2017-03-04] MEDS: *HR* Enoxaparin 40 MG/0.4 ML SYRINGE SQ SCH (05:50)
[2017-03-04 06:10] LABS: Basophils # 0.1 K/mcL (0.0-0.2); Basophils % 0.6 %; Eosinophils # 0.3 K/mcL (0.0-0.6); Eosinophils % 2.2 %; Hematocrit 36.3 % (35.3-44.9); Hemoglobin 11.4 g/dL (11.5-15.4); Immature Granulocytes % 2.9 % (0-4); Immature Platelets 4.7 % (1.1-6.1); Lymphocytes # 3.5 K/mcL (0.6-4.6); Mean Corpuscular HGB Conc 31.4 g/dL (31.6-35.5); Mean Corpuscular Hemoglobin 27.1 pg (28.0-33.3); Mean Corpuscular Volume 86.2 fL (83.0-100.0); Mean Platelet Volume 10.5 fL (9.4-12.4); Monocytes # 1.5 K/mcL (0.0-1.3); Neutrophils # 9.4 K/mcL (1.6-8.9); Nucleated Red Blood Cells 0.1 /100 WBC (0); Platelet Count 303 K/mcL (140-400); Red Blood Count 4.21 M/mcL (3.82-4.97); Red Cell Distribution Width 16.7 % (11.5-14.5); Segmented Neutrophils % 61.3 %
[2017-03-04 06:21] LABS: BUN/Creatinine Ratio 25 (6-26); Blood Urea Nitrogen 21 mg/dL (7-20); Carbon Dioxide 31 mEq/L (19-29); Chloride 103 mEq/L (98-109); Glucose 88 mg/dL (70-99); Osmolality,Calculated 290 (280-300); Potassium 3.8 mEq/L (3.5-4.5); Sodium 139 mEq/L (136-145); eGFR For African Americans > 60 (> 60); eGFR For Non-African Americans > 60 (> 60)
[2017-03-04] MEDS: Aspirin Enteric Coated 81 MG Tablet PO SCH (08:21)
[2017-03-04] MEDS: Loratadine 10 MG TABLET PO SCH (08:21)
[2017-03-04] MEDS: amLODIPine 5 MG TABLET PO SCH (08:21)
[2017-03-04] MEDS: predniSONE 20 MG TABLET PO SCH (08:22)
[2017-03-04] MEDS: Fluticasone Propionate Nasal 50 MCG/SPRAY BOTTLE NS SCH (08:24)
[2017-03-04] MEDS: *HR* Acetylcysteine 20% 600 MG/3 ML ORAL SYRINGE PO SCH ×2 (09:59→19:59)
--- NOTE | 2017-03-04 11:37 | Internal Med Progress Note ---
Date of Encounter: 03/04/17 Time of Encounter: 11:37 - Assessment and plan (1) Anxiety and depression Current Visit: Yes Status: Chronic Assessment and plan: Stable on home medications will continue Xanax and Celexa. (2) COPD exacerbation Current Visit: Yes Status: Acute Assessment and plan: Patient with steroid dependent COPD and chronic respiratory failure on home O2. Initially on IV steroids, Duoneb treatments, Singular, Theophylline. Stop home spiriva, Acetylcysteine, and Advair. Switched to oral prednisone 40mg PO QD 03/03. Continue current management (3) DVT prophylaxis Current Visit: Yes Status: Acute Assessment and plan: Lovenox (4) Elevated blood pressure reading Current Visit: Yes Status: Acute Assessment and plan: Night of 03/02, patient's blood pressure was 223/93. Patient was given 10 mg of hydralazine at 21:08. Then Norvasc 5mg at 03/03 04:28. Patient will be started on 10 mg of Norvasc by mouth daily. Patient's high blood pressure is most likely due to being on steroids, stress as she had an anxiety attack during this time and was also anxious due to the new onset of bloody tinged sputum. Blood pressure controlled on Norvasc, continue same (5) Community acquired pneumonia Current Visit: Yes Status: Acute Assessment and plan: Presented with increase productive cough for 3 days and change in sputum to thick green. CXR showed mild bibasilar airspace, represent atelectesis vs. pneumonia due to patient's symptoms patient most likely has CAP causing her COPD exacerbation. She has not been hospitalized since August and is not on antibiotics at home therefore not a high risk for pneudomonas will begin on Levaquin. Patient's white blood cell count was elevated today at 22.9 from 7.5 most likely due to steroid use but will continue to monitor for other signs of worsening infection. Plan: - Levaquin 750mg IV (03/02) - Flonase - Mucinex Qualifiers: Laterality: right Lung location: unspecified part of lung Qualified Code( s): J18.9 - Pneumonia, unspecified organism (6) Chronic respiratory failure Current Visit: Yes Status: Chronic Assessment and plan: On home O2, continue same Qualifiers: Respiratory failure complication: hypoxia Qualified Code(s): J96.11 - Chronic respiratory failure with hypoxia - Subjective Interval history: Seen and evaluated by the bedside. The patient is making clinical improvement, she states " I will let you know when I am ready to go home" She otherwise is clinically stable - Constitutional Vitals: Temp Pulse Resp BP Pulse Ox 97.9 F 74 16 149/82 95 03/04/17 07:37 03/04/17 07:37 03/04/17 11:07 03/04/17 11:07 03/04/17 11:07 General appearance: Present: cooperative, A&O X 3, no acute distress, answers questions appropriately - Head Head exam: Present: atraumatic, normocephalic - Eye Eye exam: Present: PERRL, conjuntiva pink, sclera anicteric Pupils: Present: PERRL - Neck Neck exam general surgery: Present: supple, trachea midline. Absent: lymphadenopathy - Respiratory Respiratory exam: Present: CTAB. Absent: accessory muscle use, rales, rhonchi, wheezes - Cardiovascular Cardiovascular exam: Present: RRR, +S1, +S2. Absent: diastolic murmur, gallop, rubs, systolic murmur - GI/Abdominal GI/Abdominal exam: Present: normal bowel sounds, soft, no peritoneal signs. Absent: distended, tenderness - Extremities Exam Extremities exam: Present: warm, radial pulses palpable and symmetrical. Absent : calf tenderness, cyanotic, pedal edema - Neurological Exam Neurological exam: Present: alert, CN II-XII intact, oriented X3, no focal deficits. Absent: pronater drift, facial droop, speech deficit - Skin Skin exam: Present: dry, intact Internal Medicine: Result - Labs CBC & Chem 7: 03/04/17 05:46 03/04/17 05:46 Labs: Short CBC 03/04/17 Range/Units 05:46 WBC 15.3 H (4.3-11.1) K/mcL Hgb 11.4 L (11.5-15.4) g/dL Hct 36.3 (35.3-44.9) % Plt Count 303 (140-400) K/mcL Neutrophils # 9.4 H (1.6-8.9) K/mcL BMP 03/04/17 05:46 Sodium 139 Potassium 3.8 Chloride 103 Carbon Dioxide 31 H BUN 21 H Creatinine 0.84 Glucose 88 Calcium 9.0 - ABG Interpretation ABG results: PT/INR, D-dimer PT 11.4 Seconds (9.4-12.1) 02/28/17 15:49 Consult Discharge Plan - Plan Referrals: Ronel Arce MD [Partnered Physician] - 03/13/17 10:45 am
[2017-03-04] MEDS: Levofloxacin 750 MG/150 ML 750 MG/150 ML BAG IVPB SCH (17:26)
[2017-03-04] MEDS: ALPRAZolam 1 MG TABLET PO PRN (22:47)
[2017-03-05 04:59] LABS: Basophils # 0.1 K/mcL (0.0-0.2); Basophils % 0.8 %; Eosinophils # 0.4 K/mcL (0.0-0.6); Eosinophils % 2.7 %; Hematocrit 39.1 % (35.3-44.9); Hemoglobin 12.1 g/dL (11.5-15.4); Immature Granulocytes % 3.3 % (0-4); Lymphocytes # 3.5 K/mcL (0.6-4.6); Lymphocytes % 21.9 %; Mean Corpuscular HGB Conc 30.9 g/dL (31.6-35.5); Mean Corpuscular Hemoglobin 26.7 pg (28.0-33.3); Mean Corpuscular Volume 86.1 fL (83.0-100.0); Mean Platelet Volume 10.7 fL (9.4-12.4); Monocytes # 1.5 K/mcL (0.0-1.3); Monocytes % 9.4 %; Neutrophils # 9.9 K/mcL (1.6-8.9); Platelet Count 324 K/mcL (140-400); Red Blood Count 4.54 M/mcL (3.82-4.97); Red Cell Distribution Width 16.6 % (11.5-14.5); Segmented Neutrophils % 61.9 %
[2017-03-05] MEDS: Ipratropium/Albuterol Neb 3 ML IH SCH ×6 (05:34→23:16)
[2017-03-05] MEDS: *HR* Enoxaparin 40 MG/0.4 ML SYRINGE SQ SCH (05:53)
[2017-03-05] MEDS: amLODIPine 5 MG TABLET PO SCH (08:19)
[2017-03-05] MEDS: Aspirin Enteric Coated 81 MG Tablet PO SCH (08:20)
[2017-03-05] MEDS: Loratadine 10 MG TABLET PO SCH (08:20)
[2017-03-05] MEDS: predniSONE 20 MG TABLET PO SCH (08:20)
[2017-03-05] MEDS: Lisinopril 20 MG TABLET PO SCH (08:20)
[2017-03-05] MEDS: *HR* Acetylcysteine 20% 600 MG/3 ML ORAL SYRINGE PO SCH ×2 (09:22→21:03)
[2017-03-05] MEDS: Fluticasone Propionate Nasal 50 MCG/SPRAY BOTTLE NS SCH (09:23)
--- NOTE | 2017-03-05 10:45 | Internal Med Progress Note ---
Date of Encounter: 03/05/17 Time of Encounter: 10:00 - Assessment and plan (1) Anxiety and depression Current Visit: Yes Status: Chronic Assessment and plan: Stable on home medications will continue Xanax and Celexa. (2) COPD exacerbation Current Visit: Yes Status: Acute Assessment and plan: Patient with steroid dependent COPD and chronic respiratory failure on home O2. Initially on IV steroids, Duoneb treatments, Singular, Theophylline. Stop home spiriva, Acetylcysteine, and Advair. Switched to oral prednisone 40mg PO QD 03/03. Continue current management (3) DVT prophylaxis Current Visit: Yes Status: Acute Assessment and plan: Lovenox (4) Elevated blood pressure reading Current Visit: Yes Status: Acute Assessment and plan: Night of 03/02, patient's blood pressure was 223/93. Patient was given 10 mg of hydralazine at 21:08. Then Norvasc 5mg at 03/03 04:28. Patient will be started on 10 mg of Norvasc by mouth daily. Patient's high blood pressure is most likely due to being on steroids, stress as she had an anxiety attack during this time and was also anxious due to the new onset of bloody tinged sputum. Patient with uncontrolled blood pressure We will add Lisinopril to her current dose of Norvasc (5) Community acquired pneumonia Current Visit: Yes Status: Acute Assessment and plan: Presented with increase productive cough for 3 days and change in sputum to thick green. CXR showed mild bibasilar airspace, represent atelectesis vs. pneumonia due to patient's symptoms patient most likely has CAP causing her COPD exacerbation. She has not been hospitalized since August and is not on antibiotics at home therefore not a high risk for pneudomonas will begin on Levaquin. Patient's white blood cell count was elevated today at 22.9 from 7.5 most likely due to steroid use but will continue to monitor for other signs of worsening infection. Plan: - Levaquin 750mg IV (03/02) - Flonase - Mucinex Qualifiers: Laterality: right Lung location: unspecified part of lung Qualified Code( s): J18.9 - Pneumonia, unspecified organism (6) Chronic respiratory failure Current Visit: Yes Status: Chronic Assessment and plan: On home O2, continue same Qualifiers: Respiratory failure complication: hypoxia Qualified Code(s): J96.11 - Chronic respiratory failure with hypoxia - Subjective Interval history: Seen and evaluated by the bedside. No new complains She is afraid of going home, even though she has made clinical improvement , she wants to stay one more night - Constitutional Vitals: Temp Pulse Resp BP Pulse Ox 97.7 F 74 16 169/82 99 03/05/17 06:35 03/05/17 06:35 03/05/17 06:35 03/05/17 06:35 03/05/17 06:35 General appearance: Present: cooperative, A&O X 3, no acute distress, answers questions appropriately - Head Head exam: Present: atraumatic, normocephalic - Eye Eye exam: Present: PERRL, conjuntiva pink, sclera anicteric Pupils: Present: PERRL - Neck Neck exam general surgery: Present: supple, trachea midline. Absent: lymphadenopathy - Respiratory Respiratory exam: Present: CTAB. Absent: accessory muscle use, rales, rhonchi, wheezes - Cardiovascular Cardiovascular exam: Present: RRR, +S1, +S2. Absent: diastolic murmur, gallop, rubs, systolic murmur - GI/Abdominal GI/Abdominal exam: Present: normal bowel sounds, soft, no peritoneal signs. Absent: distended, tenderness - Extremities Exam Extremities exam: Present: warm, radial pulses palpable and symmetrical. Absent : calf tenderness, cyanotic, pedal edema - Neurological Exam Neurological exam: Present: alert, CN II-XII intact, oriented X3, no focal deficits. Absent: pronater drift, facial droop, speech deficit - Skin Skin exam: Present: dry Internal Medicine: Result - Labs CBC & Chem 7: 03/05/17 04:11 03/04/17 05:46 Labs: Short CBC 03/05/17 Range/Units 04:11 WBC 16.0 H (4.3-11.1) K/mcL Hgb 12.1 (11.5-15.4) g/dL Hct 39.1 (35.3-44.9) % Plt Count 324 (140-400) K/mcL Neutrophils # 9.9 H (1.6-8.9) K/mcL - ABG Interpretation ABG results: PT/INR, D-dimer PT 11.4 Seconds (9.4-12.1) 02/28/17 15:49 Consult Discharge Plan - Plan Referrals: Ronel Arce MD [Partnered Physician] - 03/13/17 10:45 am
[2017-03-05] MEDS: ALPRAZolam 1 MG TABLET PO PRN (21:04)
[2017-03-06] MEDS: Ipratropium/Albuterol Neb 3 ML IH SCH ×3 (03:47→11:12)
[2017-03-06 04:27] LABS: Basophils # 0.1 K/mcL (0.0-0.2); Basophils % 0.6 %; Eosinophils # 0.8 K/mcL (0.0-0.6); Eosinophils % 4.9 %; Hematocrit 36.5 % (35.3-44.9); Hemoglobin 11.5 g/dL (11.5-15.4); Lymphocytes # 3.1 K/mcL (0.6-4.6); Lymphocytes % 20.6 %; Mean Corpuscular HGB Conc 31.5 g/dL (31.6-35.5); Mean Corpuscular Hemoglobin 27.4 pg (28.0-33.3); Mean Corpuscular Volume 86.9 fL (83.0-100.0); Mean Platelet Volume 10.9 fL (9.4-12.4); Monocytes # 1.2 K/mcL (0.0-1.3); Neutrophils # 9.6 K/mcL (1.6-8.9); Platelet Count 291 K/mcL (140-400); Red Cell Distribution Width 16.6 % (11.5-14.5); Segmented Neutrophils % 62.9 %
[2017-03-06] MEDS: *HR* Enoxaparin 40 MG/0.4 ML SYRINGE SQ SCH (06:14)
[2017-03-06] MEDS: Fluticasone Propionate Nasal 50 MCG/SPRAY BOTTLE NS SCH (07:51)
[2017-03-06] MEDS: amLODIPine 5 MG TABLET PO SCH (07:52)
[2017-03-06] MEDS: predniSONE 20 MG TABLET PO SCH (07:52)
[2017-03-06] MEDS: Lisinopril 20 MG TABLET PO SCH (07:52)
[2017-03-06] MEDS: Loratadine 10 MG TABLET PO SCH (07:53)
[2017-03-06] MEDS: Aspirin Enteric Coated 81 MG Tablet PO SCH (07:53)
--- NOTE | 2017-03-06 08:50 | Discharge Summary ---
Date of Encounter: 03/06/17 Time of Encounter: 10:30 - Discharge Diagnosis (1) Acute exacerbation of chronic obstructive airways disease Priority: Primary Status: Resolved (2) DVT prophylaxis Priority: Secondary Status: Acute (3) Community acquired pneumonia Priority: Primary Status: Acute Qualifiers: Laterality: right Lung location: unspecified part of lung Qualified Code( s): J18.9 - Pneumonia, unspecified organism (4) Anxiety and depression Priority: Secondary Status: Chronic (5) Elevated blood pressure reading Priority: Primary Status: Acute - Discharge Medications Prescriptions: amLODIPine [Norvasc] 10 mg PO DAILY #14 tab levoFLOXacin [Levofloxacin] 750 mg PO DAILY #4 tablet Lisinopril [Zestril] 20 mg PO DAILY #14 tab predniSONE [PredniSONE] 20 mg PO DAILY #5 tab Home Medications: Albuterol Neb [Proventil Neb] 2.5 mg IH TID 02/07/15 [History] Albuterol Sulfate [Albuterol Inhaler] 2 puff IH Q4HR PRN 02/07/15 [History] Tiotropium [Spiriva] 18 mcg IH DAILY 02/07/15 [History] Acetylcysteine [C-Hwbjql-v-Cysteine] 600 mg PO BID 09/16/15 [History] Ibandronate Sodium 150 mg PO QMONTH 02/16/16 [History] Alprazolam [Xanax] 1 mg PO BID PRN 08/24/16 [History] Aspirin Enteric Coated [Aspirin EC] 81 mg PO DAILY 08/24/16 [History] Atorvastatin [Lipitor] 10 mg PO HS 08/24/16 [History] Fluticasone/Salmeterol [Advair 500-50 Diskus] 1 each IH BID 08/24/16 [History] Oxygen 3 l NS CONT 08/24/16 [History] Citalopram Hydrobromide [Citalopram HBr] 40 mg PO DAILY 02/28/17 [History] Fluticasone Propionate Nasal [Flonase] 50 mcg NS DAILY 02/28/17 [History] Loratadine [Claritin] 10 mg PO DAILY 02/28/17 [History] Montelukast [Singulair] 10 mg PO HS 02/28/17 [History] Theophylline Anhydrous [Theophylline] 400 mg PO DAILY 02/28/17 [History] Lisinopril [Zestril] 20 mg PO DAILY #14 tab 03/06/17 [Rx] amLODIPine [Norvasc] 10 mg PO DAILY #14 tab 03/06/17 [Rx] levoFLOXacin [Levofloxacin] 750 mg PO DAILY #4 tablet 03/06/17 [Rx] predniSONE [PredniSONE] 5 mg PO DAILY #0 03/06/17 [Rx] predniSONE [PredniSONE] 20 mg PO DAILY #5 tab 03/06/17 [Rx] Allergies/Adverse Reactions: 3 Allergy/AdvReac Type Severity Reaction Status Date / Time No Known Allergies Allergy Verified 02/28/17 15:12 Date of admission: 03/02/17 12:12 Primary care physician: PCP NONE - Patient Status Disposition: Home, Self-Care Condition: Good Functional capacity at discharge: uses cane/walker Overall status at discharge: patient is progressing back to baseline - Discharge Instructions Instructions: Community-acquired Pneumonia (DC) Follow Up With: Ronel Arce MD [Partnered Physician] - 03/13/17 10:45 am Additional Instructions: Follow-up with primary care physician in 1-2 weeks for hospital follow-up. Return to the ED if symptoms worsen or new symptoms arise. - Diet and Activity Activity: increase activity as tolerated Diet: low salt diet Hospital course: Ms. Kaye is a 71 year old female with a history of COPD and is steroid and oxygen dependent on 3L NC continuously presented to the ED with 3 days of productive cough with green thick sputum and was admitted for COPD exacerbation and CAP. CXR showed mild bibasilar airspace, represent atelectesis vs. pneumonia due to patient's symptoms patient most likely has CAP causing her COPD exacerbation. Patient was placed on Levaquin for CAP. Patient was initially treated for COPD with IV steroids and then was weaned down to oral prednisone 40 mg daily and sent home with a taper down of 20mg for 3 days then 10mg then restarting her home dose prednisone of 5mg. Patient did not have a previous history of hypertension but had a blood pressure of 222/93 which is most likely due to anxiety and steroids as this occurred after having a panic attack after seeing blood tinged sputum. Patient's blood pressure remained high during hospital stay with a systolic averaging around 150s, so patient was put on Norvasc 10 mg daily and lisinopril 20mg PO daily of which she was also sent home on. Patient sent home with Levaquin 750mg daily for 5 days to finish her course of CAP. Patient felt comfortable being discharged home and was scheduled for follow-up with her PCP in 1-2 weeks. - Time Spent with Patient Total time spent providing and/or coordinating discharge services: - Constitutional Vitals: Temp Pulse Resp BP Pulse Ox 97.4 F L 66 18 147/80 94 03/06/17 06:50 03/06/17 06:50 03/06/17 07:43 03/06/17 06:50 03/06/17 07:43 General appearance: Present: cooperative, A&O X 3, no acute distress, answers questions appropriately Exam: Constitutional: Alert, in no acute distress, well nourished, well developed. Head: Normocephalic, atraumatic, normal contour and symmetric, no masses, lesions or scars Heart: Normal, regular rate and rhythm, no murmurs Lungs: decrease breath sounds at bases, + inhaling and holding breath then blowing out through pursed lips, no rales, or rhonchi or wheezes Abdomen: Soft, nondistended, nontender, and no masses palpable, bowel sounds present and normal, no guarding or rigidity. Extremities: No clubbing, cyanosis, or edema, radial pulse +2/4, capillary refill <2sec. Skin: +mulitple bruises on her arms of which number is increasing, Skin warm and dry, no lesions, no rashes, no jaundice Neurologic: Cranial nerves II through XII grossly intact, no focal deficits, strength within normal limits in all extremities Psych: Cooperative with exam, good eye contact, cognitive function intact, judgment good insight good, speech clear, thought process logical, and goal directed
[2017-03-06 10:54] VITALS: BP 137/68
== END 2017-03-06 13:30 | disposition home or self-care (01) | DRG 190 ==
LOC: EMEROO 15:10 → 3ANU 15:10 → SUATTDRO 03-02 12:12
PROVIDERS: ADMIT Internal Medicine; ATTEND Internal Medicine

== ENCOUNTER 2017-05-09 12:10 | Inpatient (IN) ==
[2017-05-09 12:40] LABS: Basophils # 0.1 K/mcL (0.0-0.2); Basophils % 0.7 %; Eosinophils # 1.1 K/mcL (0.0-0.6); Eosinophils % 8.3 %; Hemoglobin 11.4 g/dL (11.5-15.4); Immature Granulocytes % 0.6 % (0-4); Immature Platelets 4.8 % (1.1-6.1); Lymphocytes # 3.2 K/mcL (0.6-4.6); Lymphocytes % 23.8 %; Mean Corpuscular HGB Conc 30.8 g/dL (31.6-35.5); Mean Corpuscular Hemoglobin 27.9 pg (28.0-33.3); Mean Corpuscular Volume 90.7 fL (83.0-100.0); Mean Platelet Volume 10.5 fL (9.4-12.4); Monocytes % 7.7 %; Platelet Count 295 K/mcL (140-400); Red Blood Count 4.08 M/mcL (3.82-4.97); Red Cell Distribution Width 15.2 % (11.5-14.5); Segmented Neutrophils % 58.9 %
[2017-05-09 12:54] LABS: Alanine Aminotransferase 17 Units/L (0-55); Albumin 3.5 g/dL (3.5-5.0); Alkaline Phosphatase 84 Units/L (38-126); Aspartate Amino Transferase 18 Units/L (5-34); BUN/Creatinine Ratio 21 (6-26); Bilirubin,Direct 0.3 mg/dL (0.0-0.5); Bilirubin,Indirect 0.5 mg/dL (0.0-1.2); Bilirubin,Total 0.8 mg/dL (0.2-1.2); Blood Urea Nitrogen 19 mg/dL (7-20); Calcium 9.2 mg/dL (8.6-10.8); Carbon Dioxide 30 mEq/L (19-29); Chloride 104 mEq/L (98-109); Globulin 3.4 g/dL (2.4-3.5); Glucose 107 mg/dL (70-99); Lipase 32 Units/L (8-78); Osmolality,Calculated 295 (280-300); Potassium 4.7 mEq/L (3.5-4.5); Sodium 141 mEq/L (136-145); Total Protein 6.9 g/dL (6.0-8.3); eGFR For African Americans > 60 (> 60); eGFR For Non-African Americans > 60 (> 60)
--- NOTE | 2017-05-09 13:05 | Emergency Department Note ---
Disposition Clinical Impression: Community acquired pneumonia Qualifiers: Laterality: unspecified laterality Qualified Code(s): J18.9 - Pneumonia, unspecified organism COPD (chronic obstructive pulmonary disease) Qualifiers: COPD type: emphysema Emphysema type: unspecified Qualified Code(s): J43.9 - Emphysema, unspecified Disposition: Admitted As Inpatient Condition: Good Referrals: Ronel Arce MD [Primary Care Provider] - Forms: ED Satisfaction Letter Time of Disposition: 14:50 General Adult HPI - General Chief complaint: ED Shortness of Breath/Dyspnea Stated complaint: STEPHON Time Seen by Provider: 05/09/17 12:18 Source: patient, EMS Mode of arrival: EMS Limitations: no limitations Nursing Notes Reviewed: Yes Vital Signs Reviewed: Yes - History of Present Illness HPI Narrative: 71-year-old female presents to the ED for shortness of breath as well as generalized abdominal pain. Patient is a history of COPD is chronically on 3 L of oxygen daily. She does not have a COPD mass. She has never had to be intubated but has had to be hospitalized for COPD. She said she is right now not having a hard time breathing but earlier today she did and took 2 albuterol treatments which did help her. She says right now she is having soreness across her entire belly mainly in the upper portions of it. She says this been going on for about a month but has increased recently in the last 2 days. She says the pain is about a 2 out of 10 nonradiating to staying in the belly. She has had normal bowel movements and no pain with urination. She has had no vomiting. No back pain. There is no headaches or blurry vision or pain or tingling or weakness going down the arms or legs. She has not noted any fevers. Patient otherwise is having no complaints. Pain Scale: 0 - Related Data Home Medications Medication Instructions Recorded Confirmed Albuterol Neb [Proventil Neb] 2.5 mg IH TID 02/07/15 02/28/17 Albuterol Sulfate [Albuterol 2 puff IH Q4HR PRN 02/07/15 02/28/17 Inhaler] Tiotropium [Spiriva] 18 mcg IH DAILY 02/07/15 02/28/17 Acetylcysteine 600 mg PO BID 09/16/15 02/28/17 [E-Sqqxgm-q-Cysteine] Ibandronate Sodium 150 mg PO QMONTH 02/16/16 02/28/17 Alprazolam [Xanax] 1 mg PO BID PRN 08/24/16 02/28/17 Aspirin Enteric Coated [Aspirin EC] 81 mg PO DAILY 08/24/16 02/28/17 Atorvastatin [Lipitor] 10 mg PO HS 08/24/16 02/28/17 Fluticasone/Salmeterol [Advair 1 each IH BID 08/24/16 02/28/17 500-50 Diskus] Oxygen 3 l NS CONT 08/24/16 02/28/17 Citalopram Hydrobromide 40 mg PO DAILY 02/28/17 02/28/17 [Citalopram HBr] Fluticasone Propionate Nasal 50 mcg NS DAILY 02/28/17 02/28/17 [Flonase] Loratadine [Claritin] 10 mg PO DAILY 02/28/17 02/28/17 Montelukast [Singulair] 10 mg PO HS 02/28/17 02/28/17 Theophylline Anhydrous 400 mg PO DAILY 02/28/17 02/28/17 [Theophylline] Previous Rx's Medication Instructions Recorded Lisinopril [Zestril] 20 mg PO DAILY #14 tab 03/06/17 amLODIPine [Norvasc] 10 mg PO DAILY #14 tab 03/06/17 levoFLOXacin [Levofloxacin] 750 mg PO DAILY #4 tablet 03/06/17 predniSONE [PredniSONE] 5 mg PO DAILY #0 03/06/17 predniSONE [PredniSONE] 20 mg PO DAILY #5 tab 03/06/17 Allergies Allergy/AdvReac Type Severity Reaction Status Date / Time No Known Allergies Allergy Verified 02/28/17 15:12 Review of Systems: 10 point review of systems done and negative unless otherwise stated in history of present illness. All systems ED: reviewed and negative except as stated. Review of Systems: As Per HPI Past Medical History - Past Medical History Attestation: Yes The following information was validated with the patient. 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 - Social History Smoking Status: Former smoker Smokeless Tobacco Status: No Alcohol use: Reports: none Drug use: Reports: none Physical Exam - General Limitations: no limitations General appearance: alert, in no apparent distress - Head Head exam: atraumatic, normocephalic, normal inspection - Eye Eye exam: Present: normal appearance, PERRL, EOMI - ENT ENT exam: normal exam, normal oropharynx, mucous membranes moist - Neck Neck exam: Present: normal inspection, full ROM, trachea midline - Chest Chest inspection: Present: normal inspection, symmetric chest wall rise - Respiratory Respiratory exam: Present: wheezes (Bilaterally in the lower lobes. Mainly during expiration). Absent: respiratory distress, accessory muscle use - Cardiovascular Cardiovascular exam: Present: regular rate, normal rhythm, normal heart sounds - Abdominal Exam Abdominal exam: Present: soft, tenderness, normal bowel sounds. Absent: distention, guarding, rebound, rigidity, organomegaly, Hayes's sign, Rovsing's sign, tenderness at McBurney's Point, mass, pulsatile mass, hernia - Extremities Exam Extremities exam: Present: normal inspection, full ROM, normal capillary refill. Absent: tenderness, pedal edema - Back Exam Back exam: Present: normal inspection, full ROM. Absent: tenderness, CVA tenderness (R), CVA tenderness (L) - Neurological Exam Neurological exam: Present: alert, oriented X3 - Skin Skin exam: Present: warm, dry, intact, normal color Course Course Narrative: 8-year-old female presented to the ED complaining of abdominal pain and shortness of breath with history COPD. We will get chest pain and dyspnea workup including chest x-ray, EKG, troponin and CBC, lactate, CMP. We will also do an abdominal workup including lipase CT of her abdomen and pelvis without contrast. We will start an IV. Patient is currently not in any pain or any respiratory distress we will hold off on giving 20patient does agree with this. Will also not give any nausea or pain medication she said she is not really not much pain now and declined having them. Vital Signs Temperature 98.2 F 05/09/17 12:13 Pulse Rate 62 05/09/17 12:13 Respiratory Rate 18 05/09/17 12:13 Blood Pressure 144/93 05/09/17 12:13 O2 Sat by Pulse Oximetry 100 05/09/17 12:13 Temperature 98.2 F 05/09/17 12:13 Pulse Rate 60 05/09/17 14:10 Respiratory Rate 22 05/09/17 14:10 Blood Pressure 175/87 05/09/17 14:10 O2 Sat by Pulse Oximetry 98 05/09/17 14:11 Oxygen Delivery Oxygen Delivery Room Air Medical Decision Making - [facility] Narrative Medical decision making narrative: 8-year-old female presents to the ED complaining of upper abdominal and lower chest pain. She says it has increased the last 2 or 3 days. She does have COPD and has recently had increased her oxygen to 4 L. We did basic labs showed mild leukocytosis no other abnormalities. Urinalysis was normal. CT of her abdomen and pelvis came back showing no abnormalities that were acute she did have a hiatal hernia but nothing else was an acute finding. We did do a chest x-ray which did come back showing possible retrosternal pneumonia which can explain her diaphragmatic pain that she is having also due to her increase in breathing. At this time as I diagnosed her with community acquired pneumonia got blood cultures and started her on Levaquin via IV. Due to her COPD history we felt that admission would be the best course of action that she is admitted to the hospitalist I spoke with Mitch Hicks who agreed to admit the patient. Patient is admitted in stable condition at this time. She agrees to this plan. Patient has been offered DuoNeb, steroids and pain medications but she does keep declining them as she feels that she does not need them at this point. Chest X-Ray 05/09/17 12:19 IMPRESSION: New subtle retrocardiac left lower lobe airspace disease could be related to atelectasis versus pneumonia. Clinical correlation and follow-up chest radiographs recommended. D/ / Corey Sheikh MD / Corey Sheikh MD Interpreting Provider: Corey Sheikh MD Abdomen/Pelvis CT 05/09/17 12:20 IMPRESSION: 1. No acute abdominal or pelvic abnormality on this unenhanced study. 2. There is a 3 mm nonobstructing right renal calculus. 3. Slowly increasing 2.1 cm left and 1.1 cm right hyperdense interpolar renal lesions which are indeterminate. Recommend renal MRI on a nonemergent basis. 4. Small hiatal hernia. D/ /09/2017 13:26:15 Cheryl Estevez MD / devan Interpreting Provider: Cheryl Estevez MD - Medical Records Medical records reviewed: Yes I reviewed the patient's medical records. - Lab Data Lab results reviewed: Yes I reviewed the patient's lab results. Result diagrams: 05/09/17 12:32 05/09/17 12:32 Lab Results 05/09/17 05/09/17 05/09/17 Range/Units 12:32 12:32 12:32 WBC 13.6 H (4.3-11.1) K/mcL RBC 4.08 (3.82-4.97) M/mcL Hgb 11.4 L (11.5-15.4) g/dL Hct 37.0 (35.3-44.9) % MCV 90.7 (83.0-100.0) fL MCH 27.9 L (28.0-33.3) pg MCHC 30.8 L (31.6-35.5) g/dL RDW 15.2 H (11.5-14.5) % Plt Count 295 (140-400) K/mcL MPV 10.5 (9.4-12.4) fL Immature Gran % 0.6 (0-4) % Seg Neutrophils % 58.9 % Lymphocytes % 23.8 % Monocytes % 7.7 % Eosinophils % 8.3 % Basophils % 0.7 % Neutrophils # 8.0 (1.6-8.9) K/mcL Lymphocytes # 3.2 (0.6-4.6) K/mcL Monocytes # 1.0 (0.0-1.3) K/mcL Eosinophils # 1.1 H (0.0-0.6) K/mcL Basophils # 0.1 (0.0-0.2) K/mcL Immature Plt Fraction 4.8 (1.1-6.1) % Sodium 141 (136-145) mEq/L Potassium 4.7 H (3.5-4.5) mEq/L Chloride 104 (98-109) mEq/L Carbon Dioxide 30 H (19-29) mEq/L BUN 19 (7-20) mg/dL Creatinine 0.91 (0.57-1.11) mg/dL Est GFR ( Amer) > 60 (> 60) Est GFR (Non-Af Amer) > 60 (> 60) BUN/Creatinine Ratio 21 (6-26) Glucose 107 H (70-99) mg/dL Calculated Osmolality 295 (280-300) Lactic Acid 1.0 (0.5-2.2) mmol/L Calcium 9.2 (8.6-10.8) mg/dL Total Bilirubin 0.8 (0.2-1.2) mg/dL Direct Bilirubin 0.3 (0.0-0.5) mg/dL Indirect Bilirubin 0.5 (0.0-1.2) mg/dL AST 18 (5-34) Units/L ALT 17 (0-55) Units/L Alkaline Phosphatase 84 (38-126) Units/L Troponin I (0-0.03) ng/mL Serum Total Protein 6.9 (6.0-8.3) g/dL Albumin 3.5 (3.5-5.0) g/dL Globulin 3.4 (2.4-3.5) g/dL Albumin/Globulin Ratio 1.0 L (1.1-2.2) Lipase 32 (8-78) Units/L Urine Color (Yellow) Urine Clarity (Clear) Urine pH (5.0-8.0) pH Units Ur Specific [place] (1.010-1.025) Urine Protein (Neg-Trace) mg/dL Urine Glucose (UA) (Normal) mg/dL Urine Ketones (Negative) mg/dL Urine Blood (Negative) Urine Nitrite (Negative) Urine Bilirubin (Negative) Urine Urobilinogen (Normal) mg/dL Ur Leukocyte Esterase (Negative) Ur Culture Indicated? (NO) 05/09/17 05/09/17 Range/Units 12:32 14:06 WBC (4.3-11.1) K/mcL RBC (3.82-4.97) M/mcL Hgb (11.5-15.4) g/dL Hct (35.3-44.9) % MCV (83.0-100.0) fL MCH (28.0-33.3) pg MCHC (31.6-35.5) g/dL RDW (11.5-14.5) % Plt Count (140-400) K/mcL MPV (9.4-12.4) fL Immature Gran % (0-4) % Seg Neutrophils % % Lymphocytes % % Monocytes % % Eosinophils % % Basophils % % Neutrophils # (1.6-8.9) K/mcL Lymphocytes # (0.6-4.6) K/mcL Monocytes # (0.0-1.3) K/mcL Eosinophils # (0.0-0.6) K/mcL Basophils # (0.0-0.2) K/mcL Immature Plt Fraction (1.1-6.1) % Sodium (136-145) mEq/L Potassium (3.5-4.5) mEq/L Chloride (98-109) mEq/L Carbon Dioxide (19-29) mEq/L BUN (7-20) mg/dL Creatinine (0.57-1.11) mg/dL Est GFR ( Amer) (> 60) Est GFR (Non-Af Amer) (> 60) BUN/Creatinine Ratio (6-26) Glucose (70-99) mg/dL Calculated Osmolality (280-300) Lactic Acid (0.5-2.2) mmol/L Calcium (8.6-10.8) mg/dL Total Bilirubin (0.2-1.2) mg/dL Direct Bilirubin (0.0-0.5) mg/dL Indirect Bilirubin (0.0-1.2) mg/dL AST (5-34) Units/L ALT (0-55) Units/L Alkaline Phosphatase (38-126) Units/L Troponin I 0.00 (0-0.03) ng/mL Serum Total Protein (6.0-8.3) g/dL Albumin (3.5-5.0) g/dL Globulin (2.4-3.5) g/dL Albumin/Globulin Ratio (1.1-2.2) Lipase (8-78) Units/L Urine Color Yellow (Yellow) Urine Clarity Clear (Clear) Urine pH 6.0 (5.0-8.0) pH Units Ur Specific [place] 1.025 (1.010-1.025) Urine Protein Negative (Neg-Trace) mg/dL Urine Glucose (UA) Normal (Normal) mg/dL Urine Ketones Negative (Negative) mg/dL Urine Blood Negative (Negative) Urine Nitrite Negative (Negative) Urine Bilirubin Negative (Negative) Urine Urobilinogen Normal (Normal) mg/dL Ur Leukocyte Esterase Negative (Negative) Ur Culture Indicated? NO (NO) - Radiology Data Radiology results reviewed: Yes I reviewed the patient's radiology results. - EKG Data EKG #1 EKG attestation: Yes I reviewed and interpreted this EKG. EKG results narrative: EKG done at 1236 renal myself and the attending shows normal sinus rhythm at a rate of 61, IA interval 108, QRS 85, QTC 424 with a leftward axis. No acute ST changes, no acute T-wave abnormalities. No signs of any heart block, hypertrophy, heart strain. No signs of any WPW/Brugada syndrome. Compared with old EKG done on 03/30/17 shows normal sinus rhythm with no acute changes. Attestation Statement - Attestation Attestation: I, Biju Sandoval DO, examined this patient [id number] and my medical decision-making was reviewed with Dr. Collins Crandall, Resident Physician. I agree with the documented findings, disposition and treatment plan as described except to the extent set forth below. Please see my progress notes for details. 71-year-old female presents by EMS for evaluation of shortness of breath and abdominal pain. She describes her symptoms as worse in her abdomen is not really concerned about her breathing at this time. Patient presentation is stable vital signs. Lungs are clear heart is regular. Intermittent expiratory wheezing noted the patient says that she feels that she is breathing fine. Her main complaint is tenderness to the abdominal area in the upper abdominal aspect. She has mild tenderness to palpation but no guarding no rigidity no peritoneal symptoms. No pulsatile area noted. No CVA tenderness. She has no rash or lesions noted at this time. She has bilateral abdominal discomfort with palpation. Patient is concerning for intra-abdominal pathology including urinary tract infection infectious etiology. She will also have evaluation for pulmonary related issues including chest x-ray EKG. Screening laboratory workup to be completed. Breathing treatments and steroids offered as well. Patient is declining breathing treatments at this time and does not want any pain medication. Patient will imaging modalities completed this time for definitive evaluation. She does have baseline anxiety according to her and is just concerned about what her symptoms are and how they are affected by her abdominal pain. See detailed documentation of physical exam, medical intervention, medical decision-making and disposition of the resident physician' s note [id number] Patient found to have an possibility of pneumonia based on chest x-ray this time. CT the abdomen is unremarkable for inflammation or signs of renal obstruction or stone along with surgical pathology. Patient started on Levaquin here in the emergency room and admitted the hospital for COPD exacerbation secondary to presentation of pneumonia. No other concerns or issues noted this point. Patient has refrained from allowing us to provide her with pain medication steroids and breathing treatments at this time. We will continue to monitor his admission process is completed. Conversation was discussed and reviewed with the hospitalist. Patient will be admitted for observation treatment course this time. No critical care was applied during the treatment course this patient
[2017-05-09 14:19] LABS: Bilirubin,Urine Negative (Negative); Blood,Urine Negative (Negative); Clarity,Urine Clear (Clear); Color,Urine Yellow (Yellow); Glucose,Urine (UA) Normal (Normal); Ketones,Urine Negative (Negative); Leukocyte Esterase,Urine Negative (Negative); Nitrite,Urine Negative (Negative); Protein,Urine Negative (Neg-Trace); Specific Gravity,Urine 1.025 (1.010-1.025); Urobilinogen,Urine Normal (Normal)
[2017-05-09] MEDS ORDERED: Levofloxacin 750 MG/150 ML 750 MG/150 ML BAG IVPB ONE (14:29)
[2017-05-09] MEDS ORDERED: Ondansetron 4 MG/2 ML VIAL IVP PRN (15:23)
[2017-05-09] MEDS ORDERED: Naloxone 0.4 MG/ML INJ IVP PRN (15:23)
--- NOTE | 2017-05-09 16:35 | Internal Med History&Physical ---
<Sandi Almodovar - Last Filed: 05/09/17 16:55> Date of Encounter: 05/09/17 Time of Encounter: 16:34 Assessment and Plan (1) Community acquired pneumonia Current visit: Yes Status: Acute patient has been experiencing cough with green sputum production requiring increasing oxygen use. He she was on Zithromax per her PCP in continued to experience shortness of breath and symptoms. She presented to the ER asked x- ray was indicative of pneumonia. She was initiated on Levaquin which we will continue Continue oxygen titrated to maintain SPO2 greater than 90% patient's home oxygen is at 3 L nasal cannula Continue bronchodilators Qualifiers: Laterality: unspecified laterality Qualified Code(s): J18.9 - Pneumonia, unspecified organism (2) COPD (chronic obstructive pulmonary disease) Current visit: No Status: Chronic Continue with oxygen titrating to maintain spo2 >92 continue with bronchodilators and singulair Continue with home dose of prednisone Qualifiers: COPD type: emphysema Emphysema type: panlobular Qualified Code(s): J43.1 - Panlobular emphysema (3) DVT prophylaxis Current visit: No Status: Acute Lovenox Internal Medicine - H&P: HPI History of present illness: Ms. Kaye is a 71 year old female Past Med Surg Social Fam HX - Past Medical History Medical history: COPD Psychiatric history: anxiety, depression - Past Surgical History Surgical History: appendectomy, cholecystectomy, hysterectomy - Social History Smoking Status: Former smoker Smokeless Tobacco Status: No Alcohol use: none Drug use: none - Family History Mother Adopted: No Family Member Ethnicity: Non- Living Status: Hx Family Cardiac Disorders: No Hx Family Respiratory Disorders: No Hx Family Cancer: Yes Hx Family GI Disorders: No Hx Family Endocrine Disorder: No Hx Family Neuromuscular Disorders: No Hx Family Neurologic Disorders: No Hx Family HEENT Disorders: No Hx Family Autoimmune Disorders: No Father Adopted: No Living Status: Hx Family Cardiac Disorders: Yes (Brother- possible NM.) Hx Family Respiratory Disorders: Yes Hx Family Cancer: Yes Hx Family GI Disorders: Yes (multiple relatives r/t colon " problems") Brother Adopted: No Living Status: Hx Family Endocrine Disorder: Yes (dm) Internal Medicine - H&P: Meds Albuterol Neb [Proventil Neb] 2.5 mg IH TID 02/07/15 [History] Albuterol Sulfate [Albuterol Inhaler] 2 puff IH Q4HR PRN 02/07/15 [History] Tiotropium [Spiriva] 18 mcg IH DAILY 02/07/15 [History] Acetylcysteine [C-Exmiio-c-Cysteine] 600 mg PO BID 09/16/15 [History] Ibandronate Sodium 150 mg PO QMONTH 02/16/16 [History] Alprazolam [Xanax] 1 mg PO BID PRN 08/24/16 [History] Aspirin Enteric Coated [Aspirin EC] 81 mg PO DAILY 08/24/16 [History] Atorvastatin [Lipitor] 10 mg PO HS 08/24/16 [History] Fluticasone/Salmeterol [Advair 500-50 Diskus] 1 each IH BID 08/24/16 [History] Oxygen 3.5 l NS CONT 08/24/16 [History] Citalopram Hydrobromide [Citalopram HBr] 40 mg PO DAILY 02/28/17 [History] Fluticasone Propionate Nasal [Flonase] 50 mcg NS DAILY 02/28/17 [History] Loratadine [Claritin] 10 mg PO DAILY 02/28/17 [History] Montelukast [Singulair] 10 mg PO HS 02/28/17 [History] amLODIPine [Norvasc] 10 mg PO DAILY #14 tab 03/06/17 [Rx] predniSONE [PredniSONE] 5 mg PO DAILY #0 03/06/17 [Rx] Azithromycin [Azithromycin] 250 mg PO DAILY 05/09/17 [History] Lisinopril [Zestril] 5 mg PO DAILY 05/09/17 [History] 3 Allergy/AdvReac Type Severity Reaction Status Date / Time No Known Allergies Allergy Verified 02/28/17 15:12 All Systems PM: A 10-system review of systems was performed and is negative for pertinent findings except as documented above in the HPI. - Constitutional Constitutional: no chills, no fever(s), no night sweats - EENT Eyes: no change in vision, no discharge, no pain, no photophobia Nose, mouth and throat: no dysphagia, no nasal discharge, no neck pain, no sore throat - Cardiovascular Cardiovascular ROS IM: dyspnea, dyspnea on exertion, no chest pain, no diaphoresis, no lightheadedness, no palpitations, no syncope - Respiratory Respiratory: cough, dyspnea on exertion, no dyspnea, no wheezing, no excessive phlegm production - Gastrointestinal Gastrointestinal: no abdominal pain, no diarrhea, no hematemesis, no hematochezia, no melena, no nausea, no vomiting - Genitourinary Genitourinary: no change in urinary stream, no dysuria, no flank pain, no hematuria - Musculoskeletal Musculoskeletal ROS IM: no numbness, no tingling - Integumentary Integumentary IM: no rash, no unusual bruising - Neurological Neurological ROS: no confusion, no convulsions, no focal weakness, no numbness, no tingling, no tremor(s) - Hematologic/Lymphatic Hematologic/Lymphatic: no easy bruising - Constitutional Vitals: Temp Pulse Resp BP Pulse Ox 97.4 F L 60 18 118/67 97 05/09/17 15:50 05/09/17 15:50 05/09/17 15:50 05/09/17 15:50 05/09/17 15:50 General appearance: Present: A&O X 3, answers questions appropriately - Head Head exam: Present: atraumatic, normocephalic - Eye Eye exam: Present: PERRL, conjuntiva pink, sclera anicteric Pupils: Present: PERRL - Neck Neck exam general surgery: Present: supple, trachea midline. Absent: lymphadenopathy - Respiratory Respiratory exam: Present: CTAB. Absent: accessory muscle use, rales, rhonchi, wheezes - Cardiovascular Cardiovascular exam: Present: RRR, +S1, +S2. Absent: diastolic murmur, gallop, rubs, systolic murmur - GI/Abdominal GI/Abdominal exam: Present: normal bowel sounds, soft, no peritoneal signs. Absent: distended, tenderness - Extremities Exam Extremities exam: Present: warm, radial pulses palpable and symmetrical. Absent : calf tenderness, cyanotic, pedal edema - Neurological Exam Neurological exam: Present: CN II-XII intact, oriented X3, no focal deficits. Absent: pronater drift, facial droop, speech deficit - Skin Skin exam: Present: dry, intact Internal Med - H&P Results - Labs CBC & Chem 7: 05/09/17 12:32 05/09/17 12:32 - EKG Data EKG shows normal: sinus rhythm - Diagnostic Studies Other Images Additional comments: Chest X-Ray 05/09/17 12:19 IMPRESSION: New subtle retrocardiac left lower lobe airspace disease could be related to atelectasis versus pneumonia. Clinical correlation and follow-up chest radiographs recommended. D/ / Corey Sheikh MD / Corey Sheikh MD Interpreting Provider: Corey Sheikh MD Abdomen/Pelvis CT 05/09/17 12:20 IMPRESSION: 1. No acute abdominal or pelvic abnormality on this unenhanced study. 2. There is a 3 mm nonobstructing right renal calculus. 3. Slowly increasing 2.1 cm left and 1.1 cm right hyperdense interpolar renal lesions which are indeterminate. Recommend renal MRI on a nonemergent basis. 4. Small hiatal hernia. D/ /09/2017 13:26:15 Cheryl Estevez MD / devan Interpreting Provider: Cheryl Estevez MD <KurtMitch A - Last Filed: 05/09/17 22:06> Date of Encounter: 05/09/17 Internal Medicine - H&P: HPI History of present illness: Ms. Kaye is a 71 year old female All Systems PM: A 10-system review of systems was performed and is negative for pertinent findings except as documented above in the HPI. - Constitutional Vitals: Temp Pulse Resp BP Pulse Ox 97.9 F 65 23 184/82 98 05/09/17 19:23 05/09/17 19:23 05/09/17 20:33 05/09/17 19:23 05/09/17 20:33 Internal Med - H&P Results - Labs CBC & Chem 7: 05/09/17 12:32 05/09/17 12:32 - Attending Attestation I have personally performed a face to face evaluation on this patient. I have reviewed and agree with the care plan. History and Exam by me shows: 71 y/o female with hx of COPD presented to ED with worsening dyspnea. Found to have pneumonia. Exam Alert. Mild distress Heart reg Scant wheeze Abd soft Agree with assessment and plan as outlined above.
[2017-05-09] MEDS: 0.9 % Sodium Chloride 1,000 ML IVC SCH (19:12)
[2017-05-09] MEDS: *HR* Acetylcysteine 20% 600 MG/3 ML ORAL SYRINGE PO SCH (20:24)
[2017-05-09] MEDS ORDERED: Benzonatate 100 MG CAPSULE PO PRN (20:26)
[2017-05-09] MEDS ORDERED: NON-FORMULARY MEDICATION 1 EACH EACH (Oxygen [Oxygen] 3.5 L) NS SCH (20:30)
[2017-05-09] MEDS: Albuterol 2.5 MG/3 ML NEBULIZER IH SCH (20:33)
[2017-05-09] MEDS: Budesonide/Formoterol 160/4.5 MDI IH SCH ×2 (20:33→20:42)
[2017-05-09] MEDS: Acetaminophen 325 MG TABLET PO PRN (20:36)
[2017-05-09] MEDS: ALPRAZolam 1 MG TABLET PO PRN (22:49)
[2017-05-10 04:03] LABS: Basophils # 0.1 K/mcL (0.0-0.2); Basophils % 0.8 %; Eosinophils # 1.1 K/mcL (0.0-0.6); Eosinophils % 10.1 %; Hematocrit 34.1 % (35.3-44.9); Hemoglobin 10.6 g/dL (11.5-15.4); Immature Granulocytes % 0.5 % (0-4); Lymphocytes # 2.9 K/mcL (0.6-4.6); Mean Corpuscular HGB Conc 31.1 g/dL (31.6-35.5); Mean Corpuscular Hemoglobin 27.8 pg (28.0-33.3); Mean Corpuscular Volume 89.5 fL (83.0-100.0); Mean Platelet Volume 10.6 fL (9.4-12.4); Monocytes # 0.9 K/mcL (0.0-1.3); Monocytes % 8.9 %; Neutrophils # 5.4 K/mcL (1.6-8.9); Platelet Count 254 K/mcL (140-400); Red Blood Count 3.81 M/mcL (3.82-4.97); Red Cell Distribution Width 15.3 % (11.5-14.5); Segmented Neutrophils % 51.7 %
[2017-05-10 04:05] LABS: BUN/Creatinine Ratio 19 (6-26); Blood Urea Nitrogen 17 mg/dL (7-20); Calcium 8.7 mg/dL (8.6-10.8); Carbon Dioxide 29 mEq/L (19-29); Chloride 105 mEq/L (98-109); Glucose 105 mg/dL (70-99); Magnesium 1.9 mg/dL (1.6-2.6); Osmolality,Calculated 292 (280-300); Potassium 4.3 mEq/L (3.5-4.5); Sodium 140 mEq/L (136-145); eGFR For African Americans > 60 (> 60); eGFR For Non-African Americans > 60 (> 60)
[2017-05-10] MEDS: *HR* Enoxaparin 40 MG/0.4 ML SYRINGE SQ SCH (05:10)
[2017-05-10] MEDS: Acetaminophen 325 MG TABLET PO PRN (05:12)
--- NOTE | 2017-05-10 07:40 | Internal Med Progress Note ---
Date of Encounter: 05/10/17 Time of Encounter: 07:37 - Assessment and plan (1) Acute exacerbation of chronic obstructive airways disease Current Visit: No Status: Resolved Assessment and plan: Acute on chronic respiratory failure secondary to acute COPD exacerbation likely secondary to pneumonia, unknown agent Chest x-ray shows a left retrocardiac opacity Continue Levaquin Day 2, may add cefepime if not improving Switch prednisone to Solu-Medrol IV (the patient takes 5 mg of prednisone every day at baseline) Continue nebulizers and oxygen therapy (2) Chest pain Current Visit: No Status: Ruled-out Qualifiers: Chest pain type: pleurodynia Qualified Code(s): R07.81 - Pleurodynia (3) HTN (hypertension) Current Visit: No Status: Chronic Assessment and plan: Continue lisinopril Qualifiers: Hypertension type: essential hypertension Qualified Code(s): I10 - Essential (primary) hypertension (4) GERD (gastroesophageal reflux disease) Current Visit: No Status: Chronic Assessment and plan: Add omeprazole Qualifiers: Esophagitis presence: esophagitis presence not specified Qualified Code(s) : K21.9 - Gastro-esophageal reflux disease without esophagitis (5) Anxiety and depression Current Visit: No Status: Chronic Assessment and plan: Continue citalopram (6) Hyperkalemia Current Visit: Yes Status: Acute Assessment and plan: Resolved - Subjective Interval history: Note improving symptomatically, more short of breath and complains of retrosternal pain pleuritic-type, no fevers overnight, says she could not sleep , denies any abdominal pain, no dysuria or abdominal pain. - Constitutional Vitals: Temp Pulse Resp BP Pulse Ox 97.5 F L 58 18 160/78 99 05/10/17 05:18 05/10/17 05:18 05/10/17 06:41 05/10/17 05:18 05/10/17 06:41 General appearance: Present: A&O X 3, answers questions appropriately - Head Head exam: Present: atraumatic, normocephalic - Eye Eye exam: Present: PERRL, conjuntiva pink, sclera anicteric Pupils: Present: PERRL - Neck Neck exam general surgery: Present: supple, trachea midline. Absent: lymphadenopathy - Respiratory Respiratory exam: Present: CTAB, wheezes (Diffuse wheezing). Absent: accessory muscle use, rales, rhonchi - Cardiovascular Cardiovascular exam: Present: RRR, +S1, +S2. Absent: diastolic murmur, gallop, rubs, systolic murmur - GI/Abdominal GI/Abdominal exam: Present: normal bowel sounds, soft, no peritoneal signs. Absent: distended, tenderness - Extremities Exam Extremities exam: Present: warm, radial pulses palpable and symmetrical. Absent : calf tenderness, cyanotic, pedal edema - Neurological Exam Neurological exam: Present: CN II-XII intact, oriented X3, no focal deficits. Absent: pronater drift, facial droop, speech deficit - Skin Skin exam: Present: dry, intact Internal Medicine: Result - Labs CBC & Chem 7: 05/10/17 03:29 05/10/17 03:29 Labs: Short CBC 05/10/17 Range/Units 03:29 WBC 10.4 (4.3-11.1) K/mcL Hgb 10.6 L (11.5-15.4) g/dL Hct 34.1 L (35.3-44.9) % Plt Count 254 (140-400) K/mcL Neutrophils # 5.4 (1.6-8.9) K/mcL BMP 05/10/17 03:29 Sodium 140 Potassium 4.3 Chloride 105 Carbon Dioxide 29 BUN 17 Creatinine 0.90 Glucose 105 H Calcium 8.7 Consult Discharge Plan - Plan Referrals: Ronel Arce MD [Primary Care Provider] -
[2017-05-10] MEDS ORDERED: predniSONE 5 MG TABLET PO SCH (09:00)
[2017-05-10] MEDS: *HR* Acetylcysteine 20% 600 MG/3 ML ORAL SYRINGE PO SCH ×2 (10:00→22:28)
[2017-05-10] MEDS: MethylPREDNISolone 40 MG/ML VIAL IVP SCH ×3 (10:01→23:39)
[2017-05-10] MEDS: Aspirin Enteric Coated 81 MG Tablet PO SCH (10:01)
[2017-05-10] MEDS: Levofloxacin 750 MG/150 ML 750 MG/150 ML BAG IVPB SCH (10:02)
[2017-05-10] MEDS: Fluticasone Propionate Nasal 50 MCG/SPRAY BOTTLE NS SCH (10:02)
[2017-05-10] MEDS: Loratadine 10 MG TABLET PO SCH (10:02)
[2017-05-10] MEDS: amLODIPine 5 MG TABLET PO SCH (10:03)
[2017-05-10] MEDS: ALPRAZolam 1 MG TABLET PO PRN ×2 (10:04→22:28)
[2017-05-10] MEDS: Budesonide/Formoterol 160/4.5 MDI IH SCH ×2 (10:45→21:06)
[2017-05-10] MEDS: Tiotropium 18 MCG inhalation IH SCH (10:45)
[2017-05-10] MEDS: Albuterol 2.5 MG/3 ML NEBULIZER IH SCH ×2 (10:45→16:39)
--- NOTE | 2017-05-10 13:03 | Electrocardiograph Report ---
[place] [id number] Test Date: 2017-05-09 Pat Name: Kimberly Kaye Department: 102 Room: 3B12 Gender: F Manager Art: Dalton : 1945 Requested By: Collins Crandall Order Number: [id number] Reading MD: Kumar Ray MD Measurements Intervals Harold Rate: 61 P: -71 AL: 108 QRS: -35 QRSD: 85 T: 53 QT: 421 QTc: 424 Interpretive Statements SINUS RHYTHM MARKED LEFT AXIS DEVIATION Electronically Signed On 05-10-2017 13:01:49 EST by Kumar Ray MD
[2017-05-10] MEDS: *HR* Morphine 2 MG/ML SYRINGE IVP PRN ×3 (14:04→23:47)
[2017-05-10] MEDS ORDERED: Albuterol 2.5 MG/3 ML NEBULIZER IH PRN (16:31)
[2017-05-10] MEDS: Ipratropium/Albuterol Neb 3 ML IH SCH ×2 (19:30→21:06)
[2017-05-10] MEDS ORDERED: 0.9 % Sodium Chloride 1,000 ML IVC SCH (22:15)
[2017-05-10] MEDS: 0.9 % Sodium Chloride 1,000 ML IVC SCH (22:29)
[2017-05-11] MEDS: Ipratropium/Albuterol Neb 3 ML IH SCH ×4 (03:46→22:31)
[2017-05-11] MEDS: *HR* Enoxaparin 40 MG/0.4 ML SYRINGE SQ SCH (05:16)
[2017-05-11] MEDS: Levofloxacin 750 MG/150 ML 750 MG/150 ML BAG IVPB SCH (08:06)
[2017-05-11] MEDS: MethylPREDNISolone 40 MG/ML VIAL IVP SCH ×3 (08:06→22:42)
[2017-05-11] MEDS: amLODIPine 5 MG TABLET PO SCH (08:07)
[2017-05-11] MEDS: Loratadine 10 MG TABLET PO SCH (08:07)
[2017-05-11] MEDS: Aspirin Enteric Coated 81 MG Tablet PO SCH (08:07)
[2017-05-11] MEDS: Fluticasone Propionate Nasal 50 MCG/SPRAY BOTTLE NS SCH (08:13)
[2017-05-11] MEDS: ALPRAZolam 1 MG TABLET PO PRN ×2 (08:13→22:38)
[2017-05-11] MEDS: *HR* Morphine 2 MG/ML SYRINGE IVP PRN ×2 (09:52→19:33)
[2017-05-11] MEDS: *HR* Acetylcysteine 20% 600 MG/3 ML ORAL SYRINGE PO SCH ×2 (09:52→19:56)
[2017-05-11] MEDS: Tiotropium 18 MCG inhalation IH SCH (10:17)
[2017-05-11] MEDS: Budesonide/Formoterol 160/4.5 MDI IH SCH ×2 (10:17→22:31)
--- NOTE | 2017-05-11 11:17 | Internal Med Progress Note ---
Date of Encounter: 05/11/17 Time of Encounter: 11:15 - Assessment and plan (1) Acute exacerbation of chronic obstructive airways disease Current Visit: No Status: Resolved Assessment and plan: Acute on chronic respiratory failure secondary to acute COPD exacerbation likely secondary to pneumonia, unknown agent Chest x-ray showed a left retrocardiac opacity Continue Levaquin Day 3 Continue Solu-Medrol IV (the patient takes 5 mg of prednisone every day at baseline) Continue nebulizers and oxygen therapy (2) Chest pain Current Visit: No Status: Ruled-out Qualifiers: Chest pain type: pleurodynia Qualified Code(s): R07.81 - Pleurodynia (3) HTN (hypertension) Current Visit: No Status: Chronic Assessment and plan: Continue lisinopril Qualifiers: Hypertension type: essential hypertension Qualified Code(s): I10 - Essential (primary) hypertension (4) GERD (gastroesophageal reflux disease) Current Visit: No Status: Chronic Assessment and plan: Add omeprazole Qualifiers: Esophagitis presence: esophagitis presence not specified Qualified Code(s) : K21.9 - Gastro-esophageal reflux disease without esophagitis (5) Anxiety and depression Current Visit: No Status: Chronic Assessment and plan: Continue citalopram (6) Hyperkalemia Current Visit: Yes Status: Acute Assessment and plan: Resolved - Subjective Interval history: Feeling slightly better, less short of breath,complains of retrosternal pain pleuritic-type, no fevers overnight, , complaining of abdominal pain last night , denies any abdominal pain, no dysuria - Constitutional Vitals: Temp Pulse Resp BP Pulse Ox 97.7 F 65 16 139/57 92 05/11/17 07:46 05/11/17 07:46 05/11/17 07:46 05/11/17 07:46 05/11/17 10:02 General appearance: Present: A&O X 3, answers questions appropriately - Head Head exam: Present: atraumatic, normocephalic - Eye Eye exam: Present: PERRL, conjuntiva pink, sclera anicteric Pupils: Present: PERRL - Neck Neck exam general surgery: Present: supple, trachea midline. Absent: lymphadenopathy - Respiratory Respiratory exam: Present: CTAB, wheezes (Diffuse wheezing). Absent: accessory muscle use, rales, rhonchi - Cardiovascular Cardiovascular exam: Present: RRR, +S1, +S2. Absent: diastolic murmur, gallop, rubs, systolic murmur - GI/Abdominal GI/Abdominal exam: Present: normal bowel sounds, soft, no peritoneal signs. Absent: distended, tenderness - Extremities Exam Extremities exam: Present: warm, radial pulses palpable and symmetrical. Absent : calf tenderness, cyanotic, pedal edema - Neurological Exam Neurological exam: Present: CN II-XII intact, oriented X3, no focal deficits. Absent: pronater drift, facial droop, speech deficit - Skin Skin exam: Present: dry, intact Internal Medicine: Result - Labs CBC & Chem 7: 05/10/17 03:29 05/10/17 03:29 Consult Discharge Plan - Plan Referrals: Ronel Arce MD [Primary Care Provider] - 05/15/17 11:00 am
[2017-05-12] MEDS: Ipratropium/Albuterol Neb 3 ML IH SCH ×2 (03:44→11:00)
[2017-05-12] MEDS: *HR* Enoxaparin 40 MG/0.4 ML SYRINGE SQ SCH (05:51)
--- NOTE | 2017-05-12 07:40 | Discharge Summary ---
Date of Encounter: 05/12/17 Time of Encounter: 07:36 - Discharge Diagnosis (1) Acute exacerbation of chronic obstructive airways disease Priority: Primary Status: Resolved Comments: Acute on chronic respiratory failure secondary to acute COPD exacerbation likely secondary to pneumonia, unknown agent (2) Chest pain Priority: Secondary Status: Ruled-out Qualifiers: Chest pain type: pleurodynia Qualified Code(s): R07.81 - Pleurodynia (3) HTN (hypertension) Priority: Secondary Status: Chronic Qualifiers: Hypertension type: essential hypertension Qualified Code(s): I10 - Essential (primary) hypertension (4) GERD (gastroesophageal reflux disease) Priority: Secondary Status: Chronic Qualifiers: Esophagitis presence: esophagitis presence not specified Qualified Code(s) : K21.9 - Gastro-esophageal reflux disease without esophagitis (5) Anxiety and depression Priority: Secondary Status: Chronic (6) Hyperkalemia Priority: Secondary Status: Acute - Discharge Medications Prescriptions: levoFLOXacin [Levaquin] 750 mg PO DAILY #3 tablet predniSONE [PredniSONE] 10 mg PO DAILY 20 Days tablet Home Medications: Albuterol Neb [Proventil Neb] 2.5 mg IH TID 02/07/15 [History] Albuterol Sulfate [Albuterol Inhaler] 2 puff IH Q4HR PRN 02/07/15 [History] Tiotropium [Spiriva] 18 mcg IH DAILY 02/07/15 [History] Acetylcysteine [K-Tpiqde-c-Cysteine] 600 mg PO BID 09/16/15 [History] Ibandronate Sodium 150 mg PO QMONTH 02/16/16 [History] Alprazolam [Xanax] 1 mg PO BID PRN 08/24/16 [History] Aspirin Enteric Coated [Aspirin EC] 81 mg PO DAILY 08/24/16 [History] Atorvastatin [Lipitor] 10 mg PO HS 08/24/16 [History] Fluticasone/Salmeterol [Advair 500-50 Diskus] 1 each IH BID 08/24/16 [History] Oxygen 3.5 l NS CONT 08/24/16 [History] Citalopram Hydrobromide [Citalopram HBr] 40 mg PO DAILY 02/28/17 [History] Fluticasone Propionate Nasal [Flonase] 50 mcg NS DAILY 02/28/17 [History] Loratadine [Claritin] 10 mg PO DAILY 02/28/17 [History] Montelukast [Singulair] 10 mg PO HS 02/28/17 [History] amLODIPine [Norvasc] 10 mg PO DAILY #14 tab 03/06/17 [Rx] predniSONE [PredniSONE] 5 mg PO DAILY #0 03/06/17 [Rx] Azithromycin 250 mg PO DAILY 05/09/17 [History] Lisinopril [Zestril] 5 mg PO DAILY 05/09/17 [History] levoFLOXacin [Levaquin] 750 mg PO DAILY #3 tablet 05/12/17 [Rx] predniSONE [PredniSONE] 10 mg PO DAILY 20 Days tablet 05/12/17 [Rx] Allergies/Adverse Reactions: 3 Allergy/AdvReac Type Severity Reaction Status Date / Time No Known Allergies Allergy Verified 02/28/17 15:12 Date of admission: 05/09/17 15:23 Primary care physician: Ronel Arce Consults: 05/10/17 11:42 Consult to Occupational Therapy [CONS] Routine Comment: Evaluate, develop and implement POC Reason for Consult: weakness Consult to Physical Therapy [CONS] Routine Comment: Evaluate, develop and implement POC Reason for Consult: weakness 05/12/17 07:34 Consult to Coding Specialist Home Health [CONS] Routine Reason for SW Consult: Home health needs - Patient Status Disposition: Home Health Service Condition: Good Overall status at discharge: patient is progressing back to baseline - Discharge Instructions Follow Up With: Ronel Arce MD [Primary Care Provider] - 05/15/17 11:00 am Additional Instructions: Follow-up with primary care physician within the next 7 days. Complete prednisone taper, completed Levaquin for 3 more days starting on 05/13/2017 - Diet and Activity Activity: increase activity as tolerated, wear oxygen at all times Diet: low fat, low cholesterol Hospital course: Ms. Kaye is a 71 year old female with a past medical history of COPD oxygen dependent using 3 L at home, hypertension, anxiety, depression, GERD, was experiencing cough with green sputum production requiring increasing oxygen use. She was started on Zithromax by her PCP and continued to experience shortness of breath . She presented to the ER, x-ray was indicative of pneumonia with a retrocardiac opacity. She was initiated on Levaquin and Solu- Medrol. The patient's condition has improved considerably. Although she is very anxious about being discharged home. Her saturation of oxygen is at baseline. The patient has been taking Xanax for severe anxiety. Was given the option to stay another day but agreed to be discharged home on a slow prednisone taper. She is a DNR CC arrest DNI - Time Spent with Patient Total time spent providing and/or coordinating discharge services: Greater than 30 minutes (40 min) - Constitutional Vitals: Temp Pulse Resp BP Pulse Ox 97.7 F 69 16 132/61 95 05/12/17 03:47 05/12/17 03:47 05/12/17 03:47 05/12/17 03:47 05/12/17 03:47 General appearance: Present: A&O X 3, answers questions appropriately - Head Head exam: Present: atraumatic, normocephalic - Eye Eye exam: Present: PERRL, conjuntiva pink, sclera anicteric Pupils: Present: PERRL - Neck Neck exam general surgery: Present: supple, trachea midline. Absent: lymphadenopathy - Respiratory Respiratory exam: Present: decreased breath sounds, CTAB. Absent: accessory muscle use, rales, rhonchi, wheezes - Cardiovascular Cardiovascular exam: Present: RRR, +S1, +S2. Absent: diastolic murmur, gallop, rubs, systolic murmur - GI/Abdominal GI/Abdominal exam: Present: normal bowel sounds, soft, no peritoneal signs. Absent: distended, tenderness - Extremities Exam Extremities exam: Present: warm, radial pulses palpable and symmetrical. Absent : calf tenderness, cyanotic, pedal edema - Neurological Exam Neurological exam: Present: CN II-XII intact, oriented X3, no focal deficits. Absent: pronater drift, facial droop, speech deficit - Skin Skin exam: Present: dry, intact
--- NOTE | 2017-05-12 07:49 | Physician Discharge Referral ---
Home Health/Hosp Referral Info Transfer to: Home Health Provider in Charge Post Discharge: PCP - Diagnosis (1) Acute exacerbation of chronic obstructive airways disease Status: Resolved (2) Chest pain Status: Ruled-out (3) HTN (hypertension) Status: Chronic (4) GERD (gastroesophageal reflux disease) Status: Chronic (5) Anxiety and depression Status: Chronic (6) Hyperkalemia Status: Acute - Respiratory Orders Oxygen / L per min (3 L) Smoking Cessation: Smoking cessation has been advised. For more information, call the [employer] Quit Line at 9-495-JLDJ-NOW. - Diet/Nutrition Diet/Nutrition Orders: No Added Salt (OMID) - Services Needed Following services are medically necessary services: Physical Therapy Home Care Orders: Follow-up with primary care physician within the next 7 days. Complete prednisone taper, completed Levaquin for 3 more days starting on 05/13/2017 - Transfer Medications Prescriptions: levoFLOXacin [Levaquin] 750 mg PO DAILY #3 tablet predniSONE [PredniSONE] 10 mg PO DAILY 20 Days tablet Home Medications: Albuterol Neb [Proventil Neb] 2.5 mg IH TID 02/07/15 [History] Albuterol Sulfate [Albuterol Inhaler] 2 puff IH Q4HR PRN 02/07/15 [History] Tiotropium [Spiriva] 18 mcg IH DAILY 02/07/15 [History] Acetylcysteine [O-Uklelw-q-Cysteine] 600 mg PO BID 09/16/15 [History] Ibandronate Sodium 150 mg PO QMONTH 02/16/16 [History] Alprazolam [Xanax] 1 mg PO BID PRN 08/24/16 [History] Aspirin Enteric Coated [Aspirin EC] 81 mg PO DAILY 08/24/16 [History] Atorvastatin [Lipitor] 10 mg PO HS 08/24/16 [History] Fluticasone/Salmeterol [Advair 500-50 Diskus] 1 each IH BID 08/24/16 [History] Oxygen 3.5 l NS CONT 08/24/16 [History] Citalopram Hydrobromide [Citalopram HBr] 40 mg PO DAILY 02/28/17 [History] Fluticasone Propionate Nasal [Flonase] 50 mcg NS DAILY 02/28/17 [History] Loratadine [Claritin] 10 mg PO DAILY 02/28/17 [History] Montelukast [Singulair] 10 mg PO HS 02/28/17 [History] amLODIPine [Norvasc] 10 mg PO DAILY #14 tab 03/06/17 [Rx] predniSONE [PredniSONE] 5 mg PO DAILY #0 03/06/17 [Rx] Azithromycin 250 mg PO DAILY 05/09/17 [History] Lisinopril [Zestril] 5 mg PO DAILY 05/09/17 [History] levoFLOXacin [Levaquin] 750 mg PO DAILY #3 tablet 05/12/17 [Rx] predniSONE [PredniSONE] 10 mg PO DAILY 20 Days tablet 05/12/17 [Rx] Allergies/Adverse Reactions: 3 Allergy/AdvReac Type Severity Reaction Status Date / Time No Known Allergies Allergy Verified 02/28/17 15:12 Certification: Further, I certify that my clinical findings support that this patient is homebound (i.e. absences from home require considerable and taxing effort and are for medical reasons or taoism services or infrequently or short duration when for other reasons) because: Homebound Reason: Patient requires assistance of a person or device to safely leave home Attestation: My signature below is to certify that this patient is under my care and that I, or nurse practitioner, or a physician's nutritional assistant working with me, has a face-to -face encounter with this patient.
[2017-05-12] MEDS: Aspirin Enteric Coated 81 MG Tablet PO SCH (08:07)
[2017-05-12] MEDS: Fluticasone Propionate Nasal 50 MCG/SPRAY BOTTLE NS SCH (08:07)
[2017-05-12] MEDS: *HR* Acetylcysteine 20% 600 MG/3 ML ORAL SYRINGE PO SCH (08:07)
[2017-05-12] MEDS: Loratadine 10 MG TABLET PO SCH (08:08)
[2017-05-12] MEDS: MethylPREDNISolone 40 MG/ML VIAL IVP SCH (08:08)
[2017-05-12] MEDS: *HR* Morphine 2 MG/ML SYRINGE IVP PRN (08:09)
[2017-05-12] MEDS: amLODIPine 5 MG TABLET PO SCH (08:09)
[2017-05-12] MEDS ORDERED: levoFLOXacin 750 MG TABLET PO SCH (09:00)
[2017-05-12] MEDS: Budesonide/Formoterol 160/4.5 MDI IH SCH (11:00)
[2017-05-12] MEDS: Tiotropium 18 MCG inhalation IH SCH (11:00)
[2017-05-12 11:40] VITALS: BP 127/62
== END 2017-05-12 15:08 | disposition home health service (06) | DRG 190 ==
LOC: 3BNU 12:10 → EMEROO 12:10 → SUATTDRO 15:23 → 3BNU 15:27
PROVIDERS: ADMIT Internal Medicine; ATTEND Internal Medicine

== ENCOUNTER 2017-05-13 04:30 | Inpatient (IN) ==
[2017-05-13] MEDS ORDERED: Ipratropium/Albuterol Neb 3 ML IH ONE (04:35)
[2017-05-13] MEDS ORDERED: methylPREDNISolone 125 MG/2 ML VIAL IVP ONE (04:36)
[2017-05-13 04:50] LABS: Basophils % 0.1 %; Hemoglobin 11.4 g/dL (11.5-15.4); Immature Granulocytes % 1.1 % (0-4); Lymphocytes # 1.2 K/mcL (0.6-4.6); Lymphocytes % 5.6 %; Mean Corpuscular HGB Conc 30.8 g/dL (31.6-35.5); Mean Corpuscular Hemoglobin 27.6 pg (28.0-33.3); Mean Corpuscular Volume 89.6 fL (83.0-100.0); Mean Platelet Volume 10.2 fL (9.4-12.4); Monocytes # 0.5 K/mcL (0.0-1.3); Monocytes % 2.4 %; Neutrophils # 19.7 K/mcL (1.6-8.9); Platelet Count 286 K/mcL (140-400); Red Blood Count 4.13 M/mcL (3.82-4.97); Red Cell Distribution Width 15.9 % (11.5-14.5); Segmented Neutrophils % 90.8 %
[2017-05-13 05:07] LABS: Albumin 3.5 g/dL (3.5-5.0); Albumin/Globulin Ratio 1.1 (1.1-2.2); Bilirubin,Total 0.6 mg/dL (0.2-1.2); Calcium 9.2 mg/dL (8.6-10.8); Globulin 3.2 g/dL (2.4-3.5); Potassium 3.9 mEq/L (3.5-4.5); Total Protein 6.7 g/dL (6.0-8.3)
[2017-05-13] MEDS ORDERED: 0.9 % Sodium Chloride 1,000 ML ONE (05:14)
[2017-05-13] MEDS ORDERED: 0.9 % Sodium Chloride 1,000 ML IVC ONE (05:16)
[2017-05-13] MEDS ORDERED: *HR* FentaNYL (PF) 100 MCG/2 ML VIAL IVP ONE (05:16)
--- NOTE | 2017-05-13 05:32 | Emergency Department Note ---
Disposition Clinical Impression: COPD exacerbation, Respiratory distress, ARNOLDO (acute kidney injury) Disposition: Admitted As Inpatient Condition: Undetermined Referrals: Ronel Arce MD [Primary Care Provider] - Forms: ED Satisfaction Letter Time of Disposition: 06:25 SOB HPI - General Chief Complaint: ED Shortness of Breath/Dyspnea Stated Complaint: jason Time Seen by Provider: 05/13/17 04:35 Source: patient Mode of arrival: EMS Limitations: no limitations Nursing Notes Reviewed: Yes Vital Signs Reviewed: Yes - History of Present Illness 71-year-old female with recent diagnosis of COPD exacerbation, pneumonia, arrives to [facility] emergency department with multiple complaints to include shortness of breath and difficulty breathing as well as abdominal pain. The patient states that she is not worried about her breathing and she is more concerned about her abdominal pain. The patient was recently at discharge from the hospital where she had a workup with unknown etiology of her abdominal pain. The patient admits to utilizing nebulized treatments but still experienced a large amount of respiratory distress. Arrival to the emergency department the patient is tripoding and pursing her lips. She O2 saturations 98% on 3 L nasal cannula which she wears all the time. The patient denies any other complaints. Bedside ultrasound of the patient's abdomen reveals no abnormalities of her aorta. The patient was mildly hypotensive with a systolic in the low 90s upon arrival to the emergency department. She was placed on BiPAP. Pt Subjective Complaint: shortness of breath Onset (ago): day(s) (3) Severity: moderate, severe Consistency/Duration: constant, gradually worsening Improves with: nothing Worsens with: nothing Known history of: COPD Associated symptoms: Reports: cough, wheezing, nausea/vomiting, abdominal pain Treatment prior to arrival: oxygen, bronchodilator Cough present: No Sputum production: No - Related Data Home oxygen amount: 3 liters Home Medications Medication Instructions Recorded Confirmed Albuterol Neb [Proventil Neb] 2.5 mg IH TID 02/07/15 05/09/17 Albuterol Sulfate [Albuterol 2 puff IH Q4HR PRN 02/07/15 05/09/17 Inhaler] Tiotropium [Spiriva] 18 mcg IH DAILY 02/07/15 05/09/17 Acetylcysteine 600 mg PO BID 09/16/15 05/09/17 [X-Wimahy-y-Cysteine] Ibandronate Sodium 150 mg PO QMONTH 02/16/16 05/09/17 Alprazolam [Xanax] 1 mg PO BID PRN 08/24/16 05/09/17 Aspirin Enteric Coated [Aspirin EC] 81 mg PO DAILY 08/24/16 05/09/17 Atorvastatin [Lipitor] 10 mg PO HS 08/24/16 05/09/17 Fluticasone/Salmeterol [Advair 1 each IH BID 08/24/16 05/09/17 500-50 Diskus] Oxygen 3.5 l NS CONT 08/24/16 05/09/17 Citalopram Hydrobromide 40 mg PO DAILY 02/28/17 05/09/17 [Citalopram HBr] Fluticasone Propionate Nasal 50 mcg NS DAILY 02/28/17 05/09/17 [Flonase] Loratadine [Claritin] 10 mg PO DAILY 02/28/17 05/09/17 Montelukast [Singulair] 10 mg PO HS 02/28/17 05/09/17 Azithromycin 250 mg PO DAILY 05/09/17 05/09/17 Lisinopril [Zestril] 5 mg PO DAILY 05/09/17 05/09/17 Previous Rx's Medication Instructions Recorded amLODIPine [Norvasc] 10 mg PO DAILY #14 tab 03/06/17 predniSONE [PredniSONE] 5 mg PO DAILY #0 03/06/17 levoFLOXacin [Levaquin] 750 mg PO DAILY #3 tablet 05/12/17 predniSONE [PredniSONE] 10 mg PO DAILY 20 Days tablet 05/12/17 Allergies Allergy/AdvReac Type Severity Reaction Status Date / Time No Known Allergies Allergy Verified 02/28/17 15:12 All systems ED: reviewed and negative except as stated. Constitutional: Reports: chills, weakness. Denies: fever ENT ED: Denies: congestion Cardiovascular: Reports: dyspnea on exertion. Denies: chest pain, orthopnea, edema, syncope Respiratory: Reports: dyspnea, wheezes. Denies: cough, sputum production Gastrointestinal: Reports: abdominal pain, nausea. Denies: vomiting, diarrhea, constipation Musculoskeletal: Denies: back pain, neck pain Neurological: Denies: headache, weakness Past Medical History - Past Medical History Attestation: Yes The following information was validated with the patient. Source: patient Medical history: Reports: asthma, COPD, hyperlipidemia, osteoporosis Surgical history: Reports: appendectomy, cholecystectomy, hysterectomy Psychiatric history: Reports: anxiety, depression ENGINEERING PROFESSOR history: Reports: no ENGINEERING PROFESSOR history - Social History Smoking Status: Former smoker Smokeless Tobacco Status: No Alcohol use: Reports: none Drug use: Reports: none Physical Exam - General Limitations: no limitations General appearance: alert, anxious, in distress (Mild respiratory) - Head Head exam: atraumatic, normocephalic, normal inspection - Eye Eye exam: Present: normal appearance, PERRL, EOMI - ENT ENT exam: normal exam, normal oropharynx, mucous membranes moist - Neck Neck exam: Present: normal inspection, full ROM, trachea midline - Chest Chest inspection: Present: normal inspection, symmetric chest wall rise - Respiratory Respiratory exam: Present: respiratory distress (mild), wheezes, accessory muscle use, prolonged expiratory phase - Cardiovascular Cardiovascular exam: Present: regular rate, normal rhythm, normal heart sounds - Abdominal Exam Abdominal exam: Present: soft, tenderness (Diffuse). Absent: distention, guarding, rebound, rigidity, heel tap sign - Extremities Exam Extremities exam: Present: normal inspection, full ROM. Absent: tenderness, pedal edema Course Vital Signs Temperature 98.1 F 05/13/17 04:31 Pulse Rate 96 05/13/17 04:31 Respiratory Rate 26 05/13/17 04:31 Blood Pressure 104/75 05/13/17 04:31 O2 Sat by Pulse Oximetry 96 05/13/17 04:31 Temperature 30 F L 05/13/17 05:43 Pulse Rate 91 05/13/17 05:43 Respiratory Rate 17 05/13/17 05:43 Blood Pressure 109/81 05/13/17 05:43 O2 Sat by Pulse Oximetry 96 05/13/17 05:43 Oxygen Delivery Oxygen Delivery Bipap Shortness of Breath/Dyspnea - MDM Narrative Medical decision making narrative: Workup here in the emergency department demonstrates no acute process. The patient was in respiratory distress upon arrival to the emergency department. She was tripoding and required BiPAP for an admission. She is resting comfortably at this time on BiPAP. This is likely a COPD exacerbation. The patient's abdomen and pelvis CT scan demonstrates no acute process. The patient 's chest x-ray also shows no acute process. Labs are otherwise unremarkable. We will admit the patient to the hospitalist at this time given her respiratory distress. Accepted by Dr. Bridges. - Lab Data Lab results reviewed: Yes I reviewed the patient's lab results. Result diagrams: 05/13/17 04:42 05/13/17 04:42 Lab Results 05/13/17 05/13/17 05/13/17 Range/Units 04:42 04:42 04:42 WBC 21.7 H D (4.3-11.1) K/mcL RBC 4.13 (3.82-4.97) M/mcL Hgb 11.4 L (11.5-15.4) g/dL Hct 37.0 (35.3-44.9) % MCV 89.6 (83.0-100.0) fL MCH 27.6 L (28.0-33.3) pg MCHC 30.8 L (31.6-35.5) g/dL RDW 15.9 H (11.5-14.5) % Plt Count 286 (140-400) K/mcL MPV 10.2 (9.4-12.4) fL Immature Gran % 1.1 (0-4) % Seg Neutrophils % 90.8 % Lymphocytes % 5.6 % Monocytes % 2.4 % Eosinophils % 0.0 % Basophils % 0.1 % Neutrophils # 19.7 H (1.6-8.9) K/mcL Lymphocytes # 1.2 (0.6-4.6) K/mcL Monocytes # 0.5 (0.0-1.3) K/mcL Eosinophils # 0.0 (0.0-0.6) K/mcL Basophils # 0.0 (0.0-0.2) K/mcL Sodium 139 (136-145) mEq/L Potassium 3.9 (3.5-4.5) mEq/L Chloride 105 (98-109) mEq/L Carbon Dioxide 26 (19-29) mEq/L BUN 34 H (7-20) mg/dL Creatinine 1.16 H (0.57-1.11) mg/dL Est GFR ( Amer) 56 L (> 60) Est GFR (Non-Af Amer) 46 L (> 60) BUN/Creatinine Ratio 29 H (6-26) Glucose 76 (70-99) mg/dL Calculated Osmolality 294 (280-300) Calcium 9.2 (8.6-10.8) mg/dL Total Bilirubin 0.6 (0.2-1.2) mg/dL AST 29 (5-34) Units/L ALT 21 (0-55) Units/L Alkaline Phosphatase 83 (38-126) Units/L Troponin I 0.03 (0-0.03) ng/mL Serum Total Protein 6.7 (6.0-8.3) g/dL Albumin 3.5 (3.5-5.0) g/dL Globulin 3.2 (2.4-3.5) g/dL Albumin/Globulin Ratio 1.1 (1.1-2.2) Lipase 23 (8-78) Units/L - Radiology Data Radiology results reviewed: Yes I reviewed the patient's radiology results. - EKG Data EKG attestation: Yes I reviewed and interpreted this EKG. EKG results narrative: Heart rate 94 bpm. CA interval 92 ms. QTC 44 ms. Normal sinus rhythm. No ST elevation or ST depression noted. No acute changes noted. Attestation Statement - Attestation Attestation: I examined this patient and my medical decision-making was reviewed with the Resident Physician. I agree with the documented findings, disposition and treatment plan as described except to the extent set forth below. Patient eating with difficulty breathing and abdominal pain. Recently admitted and discharged for COPD. On examination she is in respiratory distress. Pursed Lip breathing. Diffuse wheezing. Neck. Diffuse abdominal tenderness. Plan. Cardiac workup. EKG with no acute ischemic changes. CT abdomen.
[2017-05-13] MEDS ORDERED: Naloxone 0.4 MG/ML INJ IVP PRN (09:41)
[2017-05-13] MEDS ORDERED: Acetaminophen 325 MG TABLET PO PRN (09:41)
[2017-05-13] MEDS ORDERED: Ondansetron 4 MG/2 ML VIAL IVP PRN (09:41)
--- NOTE | 2017-05-13 09:47 | Internal Med History&Physical ---
Date of Encounter: 05/13/17 Time of Encounter: 09:47 Assessment and Plan (1) Intractable abdominal pain Current visit: Yes Status: Acute Possibly related to cough CT scan of the abdomen does not show any acute finding use morphine as needed Omeprazole for GI prophylaxis and subcutaneous heparin for DVT prophylaxis. The patient will be admitted for observation. DNR CC arrest DNI. Time spent on this admission 40 minutes (2) Leukocytosis Current visit: Yes Status: Acute Likely related to steroids Qualifiers: Leukocytosis type: unspecified Qualified Code(s): D72.829 - Elevated white blood cell count, unspecified (3) CKD (chronic kidney disease) Current visit: Yes Status: Acute Stable Qualifiers: Chronic kidney disease stage: stage 3 (moderate) Qualified Code(s): N18.3 - Chronic kidney disease, stage 3 (moderate) (4) COPD (chronic obstructive pulmonary disease) Current visit: No Status: Chronic Was being treated for COPD exacerbation due to community-acquired pneumonia during prior admission Continue oral Levaquin ( needs 3 more days) and prednisone taper Qualifiers: COPD type: emphysema Emphysema type: panlobular Qualified Code(s): J43.1 - Panlobular emphysema (5) Anxiety Current visit: No Status: Chronic Severe anxiety Xanax as needed (6) GERD (gastroesophageal reflux disease) Current visit: No Status: Chronic omeprazole Qualifiers: Esophagitis presence: esophagitis presence not specified Qualified Code(s) : K21.9 - Gastro-esophageal reflux disease without esophagitis Internal Medicine - H&P: HPI Chief complaint: abdominal pain Admitted From: Emergency Dept History of present illness: Ms. Kaye is a 71 year old female with a past medical history of COPD oxygen dependent using 3 L continuously, severe anxiety, hypertension, GERD, discharged from the hospital on 05/12/2017 due to acute COPD exacerbation from community-acquired pneumonia. During the past admission the patient was treated with Levaquin, her chest x-ray showed a retrocardiac opacity, her breathing was much improved and was discharged home on taper of prednisone. She came back complaining of severe abdominal pain. A CT scan of the abdomen did not show any abnormality. Denies any nausea, vomiting, no diarrhea, no fevers, white blood cell count is 21.7 trolley from steroids. She is not able to describe the pain properly been mainly epigastric and provoked by coughing. Denies any cramping, is not intermittent, unrelated to food. Her creatinine has increased from 0.9 up to 1.16, does not appear dehydrated. She says she was very anxious, is not feeling short of breath at the moment and rates her pain 15/10 although she appears to be calm and resting in bed comfortably. Past Med Surg Social Fam HX - Past Medical History Medical history: asthma, COPD (Oxygen dependent on 3 L continuously), GERD, hyperlipidemia, osteoporosis, other (Mild diastolic dysfunction, osteoporosis) Psychiatric history: anxiety (Severe anxiety), depression - Past Surgical History Surgical History: appendectomy, cholecystectomy, hysterectomy - Social History Smoking Status: Former smoker Smokeless Tobacco Status: No Alcohol use: none Drug use: none - Family History Mother Adopted: No Family Member Ethnicity: Non- Living Status: Hx Family Cardiac Disorders: No Hx Family Respiratory Disorders: No Hx Family Cancer: Yes Hx Family GI Disorders: No Hx Family Endocrine Disorder: No Hx Family Neuromuscular Disorders: No Hx Family Neurologic Disorders: No Hx Family HEENT Disorders: No Hx Family Autoimmune Disorders: No Father Adopted: No Living Status: Hx Family Cardiac Disorders: Yes (Brother- possible [place].) Hx Family Respiratory Disorders: Yes Hx Family Cancer: Yes Hx Family GI Disorders: Yes (multiple relatives r/t colon " problems") Brother Adopted: No Living Status: Hx Family Endocrine Disorder: Yes (dm) - Additional Family History Additional family history: Father with lung cancer, brother with diabetes and myocardial infarction Internal Medicine - H&P: Meds Albuterol Neb [Proventil Neb] 2.5 mg IH TID 02/07/15 [History] Albuterol Sulfate [Albuterol Inhaler] 2 puff IH Q4HR PRN 02/07/15 [History] Tiotropium [Spiriva] 18 mcg IH DAILY 02/07/15 [History] Acetylcysteine [J-Jrflqd-y-Cysteine] 600 mg PO BID 09/16/15 [History] Ibandronate Sodium 150 mg PO QMONTH 02/16/16 [History] Alprazolam [Xanax] 1 mg PO BID PRN 08/24/16 [History] Aspirin Enteric Coated [Aspirin EC] 81 mg PO DAILY 08/24/16 [History] Atorvastatin [Lipitor] 10 mg PO HS 08/24/16 [History] Fluticasone/Salmeterol [Advair 500-50 Diskus] 1 each IH BID 08/24/16 [History] Oxygen 3.5 l NS CONT 08/24/16 [History] Citalopram Hydrobromide [Citalopram HBr] 40 mg PO DAILY 02/28/17 [History] Fluticasone Propionate Nasal [Flonase] 50 mcg NS DAILY 02/28/17 [History] Loratadine [Claritin] 10 mg PO DAILY 02/28/17 [History] Montelukast [Singulair] 10 mg PO HS 02/28/17 [History] amLODIPine [Norvasc] 10 mg PO DAILY #14 tab 03/06/17 [Rx] predniSONE [PredniSONE] 5 mg PO DAILY #0 03/06/17 [Rx] Azithromycin 250 mg PO DAILY 05/09/17 [History] Lisinopril [Zestril] 5 mg PO DAILY 05/09/17 [History] levoFLOXacin [Levaquin] 750 mg PO DAILY #3 tablet 05/12/17 [Rx] predniSONE [PredniSONE] 10 mg PO DAILY 20 Days tablet 05/12/17 [Rx] 3 Allergy/AdvReac Type Severity Reaction Status Date / Time No Known Allergies Allergy Verified 02/28/17 15:12 All Systems PM: A 10-system review of systems was performed and is negative for pertinent findings except as documented above in the HPI. Review of systems: No chest pain, mild shortness of breath, no dysuria, no diarrhea. Other systems out of the 10 review of her negative - Constitutional Vitals: Temp Pulse Resp BP Pulse Ox 98.1 F 79 19 114/55 95 05/13/17 04:31 05/13/17 07:46 05/13/17 07:46 05/13/17 07:46 05/13/17 07:46 General appearance: Present: A&O X 3 - Head Head exam: Present: atraumatic, normocephalic - Eye Eye exam: Present: PERRL, conjuntiva pink, sclera anicteric Pupils: Present: PERRL - Neck Neck exam general surgery: Present: supple, trachea midline. Absent: lymphadenopathy - Respiratory Respiratory exam: Present: decreased breath sounds, CTAB. Absent: accessory muscle use, rales, rhonchi, wheezes - Cardiovascular Cardiovascular exam: Present: RRR, +S1, +S2. Absent: diastolic murmur, gallop, rubs, systolic murmur - GI/Abdominal GI/Abdominal exam: Present: distended (Abdominal distention, mild tenderness mainly in the epigastric area), normal bowel sounds, soft, no peritoneal signs. Absent: tenderness - Extremities Exam Extremities exam: Present: warm, radial pulses palpable and symmetrical. Absent : calf tenderness, cyanotic, pedal edema - Neurological Exam Neurological exam: Present: CN II-XII intact, oriented X3, no focal deficits. Absent: pronater drift, facial droop, speech deficit - Skin Skin exam: Present: dry, intact Internal Med - H&P Results - Labs CBC & Chem 7: 05/13/17 04:42 05/13/17 04:42
[2017-05-13] MEDS: Ipratropium/Albuterol Neb 3 ML IH SCH ×5 (10:01→22:46)
[2017-05-13] MEDS: predniSONE 10 MG TABLET PO SCH (10:49)
[2017-05-13] MEDS: ALPRAZolam 1 MG TABLET PO PRN (10:49)
[2017-05-13] MEDS: *HR* Heparin 5,000 UNIT/ML VIAL SQ SCH ×2 (10:49→20:32)
[2017-05-13] MEDS: *HR* Morphine 2 MG/ML SYRINGE IVP PRN ×3 (10:50→20:33)
[2017-05-13] MEDS ORDERED: Furosemide 40 MG/4 ML VIAL IVP ONE (22:13)
[2017-05-14] MEDS: ALPRAZolam 1 MG TABLET PO PRN ×2 (01:20→20:40)
[2017-05-14] MEDS: *HR* Morphine 2 MG/ML SYRINGE IVP PRN ×5 (01:24→20:40)
[2017-05-14] MEDS: Ipratropium/Albuterol Neb 3 ML IH SCH ×4 (04:38→22:24)
[2017-05-14 07:10] LABS: Calcium 9.3 mg/dL (8.6-10.8); Potassium 4.8 mEq/L (3.5-4.5)
[2017-05-14 07:32] LABS: Mean Platelet Volume 11.2 fL (9.4-12.4)
[2017-05-14 07:33] LABS: Hematocrit 34.9 % (35.3-44.9); Mean Corpuscular HGB Conc 31.5 g/dL (31.6-35.5); Mean Corpuscular Hemoglobin 28.4 pg (28.0-33.3); Mean Corpuscular Volume 89.9 fL (83.0-100.0); Platelet Count 269 K/mcL (140-400); Red Blood Count 3.88 M/mcL (3.82-4.97); Red Cell Distribution Width 16.3 % (11.5-14.5)
[2017-05-14] MEDS ORDERED: levoFLOXacin 750 MG TABLET PO SCH (09:00)
[2017-05-14] MEDS: Aspirin Enteric Coated 81 MG Tablet PO SCH (09:02)
[2017-05-14] MEDS: amLODIPine 5 MG TABLET PO SCH (09:02)
[2017-05-14] MEDS: predniSONE 10 MG TABLET PO SCH (09:02)
[2017-05-14] MEDS: *HR* Heparin 5,000 UNIT/ML VIAL SQ SCH ×3 (09:04→20:41)
[2017-05-14] MEDS ORDERED: 0.9 % Sodium Chloride 1,000 ML IVC SCH ×2 (10:00→17:30)
--- NOTE | 2017-05-14 10:19 | Internal Med Progress Note ---
Date of Encounter: 05/14/17 Time of Encounter: 10:17 - Assessment and plan (1) Intractable abdominal pain Current Visit: Yes Status: Acute Assessment and plan: Unclear etiology, The patient had a normal CT scan 2 days ago but it was done with without contrast Patient is in severe distress with abdominal distention, spoke with Dr. Carney from your radiology to order a stat CT scan of the abdomen and pelvis with oral and decreased IV contrast, due to concerns of ischemic bowel the benefits of weight the risks NPO Start IV fluids, switch antibiotic therapy to Rocephin and Flagyl IV Protonix IV (2) Leukocytosis Current Visit: Yes Status: Acute Assessment and plan: SIRS Possible intra-abdominal infection Qualifiers: Leukocytosis type: unspecified Qualified Code(s): D72.829 - Elevated white blood cell count, unspecified (3) CKD (chronic kidney disease) Current Visit: Yes Status: Acute Assessment and plan: Acute and chronic renal failure Start IV fluids Qualifiers: Chronic kidney disease stage: stage 3 (moderate) Qualified Code(s): N18.3 - Chronic kidney disease, stage 3 (moderate) (4) COPD (chronic obstructive pulmonary disease) Current Visit: No Status: Chronic Assessment and plan: Acute on chronic hypoxic respiratory failure due to acute COPD exacerbation Stop prednisone and restart Solu-Medrol Qualifiers: COPD type: emphysema Emphysema type: panlobular Qualified Code(s): J43.1 - Panlobular emphysema (5) Anxiety Current Visit: No Status: Chronic (6) GERD (gastroesophageal reflux disease) Current Visit: No Status: Chronic Qualifiers: Esophagitis presence: esophagitis presence not specified Qualified Code(s) : K21.9 - Gastro-esophageal reflux disease without esophagitis - Subjective Interval history: Patient is in severe distress with severe abdominal pain, very short of breath, wheezing. No diarrhea but there are severe abdominal distention, nausea. No fevers - Constitutional Vitals: Temp Pulse Resp BP Pulse Ox 97.6 F 83 24 119/60 94 05/14/17 08:00 05/14/17 08:00 05/14/17 08:00 05/14/17 08:00 05/14/17 08:00 General appearance: Present: A&O X 3 - Head Head exam: Present: atraumatic, normocephalic - Eye Eye exam: Present: PERRL, conjuntiva pink, sclera anicteric Pupils: Present: PERRL - Neck Neck exam general surgery: Present: supple, trachea midline. Absent: lymphadenopathy - Respiratory Respiratory exam: Present: CTAB, wheezes (Diffuse wheezing). Absent: accessory muscle use, rales, rhonchi - Cardiovascular Cardiovascular exam: Present: RRR, +S1, +S2. Absent: diastolic murmur, gallop, rubs, systolic murmur - GI/Abdominal GI/Abdominal exam: Present: distended, normal bowel sounds, soft, tenderness ( Diffusely tender), no peritoneal signs - Extremities Exam Extremities exam: Present: warm, radial pulses palpable and symmetrical. Absent : calf tenderness, cyanotic, pedal edema - Neurological Exam Neurological exam: Present: CN II-XII intact, oriented X3, no focal deficits. Absent: pronater drift, facial droop, speech deficit - Skin Skin exam: Present: dry, intact Internal Medicine: Result - Labs CBC & Chem 7: 05/14/17 06:12 05/14/17 06:12 Labs: Short CBC 05/14/17 Range/Units 06:12 WBC 26.6 H (4.3-11.1) K/mcL Hgb 11.0 L (11.5-15.4) g/dL Hct 34.9 L (35.3-44.9) % Plt Count 269 (140-400) K/mcL [facility] 05/14/17 06:12 Sodium 139 Potassium 4.8 H Chloride 103 Carbon Dioxide 26 BUN 51 H D Creatinine 1.67 H Glucose 103 H Calcium 9.3 Consult Discharge Plan - Plan Referrals: Ronel Arce MD [Primary Care Provider] -
[2017-05-14] MEDS: MetroNIDAZOLE 500 MG/100 ML 500 MG/100 ML BAG IVPB SCH ×3 (10:36→23:39)
[2017-05-14] MEDS: cefTRIAXone 1,000 MG in Water for inj. (sterile) 10 ML IVP SCH (11:43)
--- NOTE | 2017-05-14 19:44 | Electrocardiograph Report ---
[place] [id number] Test Date: 2017-05-13 Pat Name: Kimberly Kaye Department: 104 Room: [facility] Gender: F [employer]: DEVON : 1945 Requested By: Mata Strickland Order Number: [id number] Reading MD: Kumar Ray MD Measurements Intervals Elmer Rate: 94 P: -87 ID: [id number] QRS: -19 QRSD: 82 T: 66 QT: 352 QTc: 404 Interpretive Statements SINUS RHYTHM BASELINE ARTIFACT Electronically Signed On 05-14-2017 19:43:05 EST by Kumar Ray MD
[2017-05-15] MEDS: ALPRAZolam 1 MG TABLET PO PRN (03:18)
[2017-05-15] MEDS ORDERED: ALPRAZolam 0.25 MG TABLET PO ONE (03:22)
[2017-05-15 03:23] LABS: Basophils # 0.1 K/mcL (0.0-0.2); Basophils % 0.3 %; Hematocrit 33.6 % (35.3-44.9); Hemoglobin 10.3 g/dL (11.5-15.4); Immature Granulocytes % 1.5 % (0-4); Lymphocytes % 4.4 %; Mean Corpuscular HGB Conc 30.7 g/dL (31.6-35.5); Mean Corpuscular Hemoglobin 27.8 pg (28.0-33.3); Mean Corpuscular Volume 90.8 fL (83.0-100.0); Mean Platelet Volume 11.2 fL (9.4-12.4); Monocytes # 1.2 K/mcL (0.0-1.3); Monocytes % 5.5 %; Neutrophils # 19.2 K/mcL (1.6-8.9); Platelet Count 230 K/mcL (140-400); Red Cell Distribution Width 16.4 % (11.5-14.5); Segmented Neutrophils % 88.3 %
[2017-05-15] MEDS: *HR* Morphine 2 MG/ML SYRINGE IVP PRN ×3 (03:40→17:35)
[2017-05-15] MEDS: Ipratropium/Albuterol Neb 3 ML IH SCH ×4 (03:41→21:14)
[2017-05-15 03:43] LABS: Albumin 2.8 g/dL (3.5-5.0); Albumin/Globulin Ratio 0.8 (1.1-2.2); Bilirubin,Total 0.7 mg/dL (0.2-1.2); Calcium 8.5 mg/dL (8.6-10.8); Globulin 3.6 g/dL (2.4-3.5); Potassium 5.2 mEq/L (3.5-4.5); Total Protein 6.4 g/dL (6.0-8.3)
[2017-05-15] MEDS: *HR* Heparin 5,000 UNIT/ML VIAL SQ SCH ×3 (04:58→20:37)
[2017-05-15] MEDS: cefTRIAXone 1,000 MG in Water for inj. (sterile) 10 ML IVP SCH (08:08)
[2017-05-15] MEDS: MetroNIDAZOLE 500 MG/100 ML 500 MG/100 ML BAG IVPB SCH (08:09)
[2017-05-15] MEDS: Aspirin Enteric Coated 81 MG Tablet PO SCH (08:10)
[2017-05-15] MEDS: amLODIPine 5 MG TABLET PO SCH (08:11)
[2017-05-15] MEDS ORDERED: Pantoprazole 40 MG VIAL IVP SCH (09:00)
--- NOTE | 2017-05-15 09:56 | Internal Med Progress Note ---
<Anil Zarate - Last Filed: 05/15/17 14:51> Date of Encounter: 05/15/17 Time of Encounter: 09:54 - Assessment and plan (1) Intractable abdominal pain Current Visit: Yes Status: Acute Assessment and plan: Unclear etiology CT abdomen/pelvis 05/14/17 showed no findings of ishcemic bowel, diverticulosis of the sigmoid colon patient states abdominal pain is mildly improved since yesterday. Plan: will check intra-abdominal pressure get abdominal XR 2 view (2) Leukocytosis Current Visit: Yes Status: Acute Assessment and plan: Etiology likley multifactorial secondary to posisble intra-abdominal infection, steroid use. Qualifiers: Leukocytosis type: unspecified Qualified Code(s): D72.829 - Elevated white blood cell count, unspecified (3) Acute kidney injury superimposed on chronic kidney disease Current Visit: Yes Status: Acute Assessment and plan: ARNOLDO worsening, Cr today 2.1 CKD stage II Etiology unclear at htis time, possibilities include: dehydration, contrast. Plan: IVF hold lisinopril continue to monitor. renal ultrasound and renal artery duplex pending. (4) COPD (chronic obstructive pulmonary disease) Current Visit: No Status: Chronic Assessment and plan: acute on chronic hypoxic respiratory failure due to COPD exacerbation. CXR: bibasilar atalectasis Plan: continue Ceftriaxone, IV solumedrol, scheduled DuoNebs continue BiPAP Qualifiers: COPD type: emphysema Emphysema type: panlobular Qualified Code(s): J43.1 - Panlobular emphysema (5) Anxiety Current Visit: No Status: Chronic Assessment and plan: Xanax PRN (6) GERD (gastroesophageal reflux disease) Current Visit: No Status: Chronic Qualifiers: Esophagitis presence: esophagitis presence not specified Qualified Code(s) : K21.9 - Gastro-esophageal reflux disease without esophagitis (7) DVT prophylaxis Current Visit: No Status: Acute Assessment and plan: Heparin SQ - Subjective Interval history: 71F evaluated at bedside. patient denies nausea vomiting, diarrhea, fever chills , chest pain. she reports shortness of breath. she was laying in bed on BiPAP. she still reports having abdominal pain, but states that the pain is less than it was since yesterday. she denies any other problems today. - Constitutional Vitals: Temp Pulse Resp BP Pulse Ox 98.4 F 83 20 117/62 91 05/15/17 07:44 05/15/17 07:44 05/15/17 07:44 05/15/17 07:44 05/15/17 07:44 General appearance: Present: mild distress, A&O X 3, obese - Head Head exam: Present: atraumatic, normocephalic - Respiratory Respiratory exam: Present: rales, rhonchi, wheezes - Cardiovascular Cardiovascular exam: Present: RRR, +S1, +S2 - GI/Abdominal GI/Abdominal exam: Present: distended, firm, normal bowel sounds, tenderness - Extremities Exam Extremities exam: Absent: cyanotic, pedal edema - Neurological Exam Neurological exam: Present: alert, CN II-XII intact, oriented X3 Internal Medicine: Result - Labs CBC & Chem 7: 05/15/17 02:46 05/15/17 02:46 Labs: Short CBC 05/15/17 Range/Units 02:46 WBC 21.7 H (4.3-11.1) K/mcL Hgb 10.3 L (11.5-15.4) g/dL Hct 33.6 L (35.3-44.9) % Plt Count 230 (140-400) K/mcL Neutrophils # 19.2 H (1.6-8.9) K/mcL BMP 05/15/17 02:46 Sodium 137 Potassium 5.2 H Chloride 105 Carbon Dioxide 20 BUN 68 H D Creatinine 2.10 H Glucose 74 Calcium 8.5 L Liver Function 05/15/17 Range/Units 02:46 Total Bilirubin 0.7 (0.2-1.2) mg/dL AST 64 H (5-34) Units/L ALT 32 (0-55) Units/L Alkaline Phosphatase 78 (38-126) Units/L Albumin 2.8 L (3.5-5.0) g/dL - Impressions Impressions Abdomen/Pelvis CT 05/14/17 14:00 IMPRESSION: No findings of ischemic bowel are identified. Diverticulosis of the sigmoid colon, without acute inflammatory changes. Mild bibasilar atelectasis or pneumonitis. D/ / Giovani Neal MD / Giovani Neal MD Interpreting Provider: Giovani Neal MD Consult Discharge Plan - Plan Referrals: Ronel Arce MD [Primary Care Provider] - <Nilson Parry - Last Filed: 05/15/17 16:53> Date of Encounter: 05/15/17 - Assessment and plan (1) Intractable abdominal pain Current Visit: Yes Status: Acute (2) Leukocytosis Current Visit: Yes Status: Acute Qualifiers: Leukocytosis type: unspecified Qualified Code(s): D72.829 - Elevated white blood cell count, unspecified (3) CKD (chronic kidney disease) Current Visit: Yes Status: Acute Qualifiers: Chronic kidney disease stage: stage 3 (moderate) Qualified Code(s): N18.3 - Chronic kidney disease, stage 3 (moderate) (4) COPD (chronic obstructive pulmonary disease) Current Visit: No Status: Chronic Qualifiers: COPD type: emphysema Emphysema type: panlobular Qualified Code(s): J43.1 - Panlobular emphysema (5) Anxiety Current Visit: No Status: Chronic (6) GERD (gastroesophageal reflux disease) Current Visit: No Status: Chronic Qualifiers: Esophagitis presence: esophagitis presence not specified Qualified Code(s) : K21.9 - Gastro-esophageal reflux disease without esophagitis - Constitutional Vitals: Temp Pulse Resp BP Pulse Ox 97.6 F 73 24 131/57 93 05/15/17 16:02 05/15/17 16:02 05/15/17 16:12 05/15/17 16:02 05/15/17 16:12 Internal Medicine: Result - Labs CBC & Chem 7: 05/15/17 02:46 05/15/17 02:46 - ABG Interpretation ABG results: ABG ABG pH 7.26 pH Units (7.32-7.45) L 05/15/17 12:09 ABG pCO2 54 mmHg (35-45) H 05/15/17 12:09 ABG pO2 59 mmHg (85-104) L 05/15/17 12:09 ABG O2 Saturation 85 % (95-98) L 05/15/17 12:09 - Attending Attestation acute hypoxic resp failure due to acute copd exacerbation due to acute CAP ( treated from prior admission ) solumedrol rocephin refusing BIPAP, was DNR cc A DNI , now mentions that she does not want to live like this with constant SOB , depending on steroids all the time, wants to switch to DNR cc, does not want us to call her family. will call a palliative care consult risks explained. The patient is competent and is able to make her own decisions poor prognosis without treatment refused x ray of the abdomen, sever abdominal distention, considering [facility] order ativan prn, morphine prn full comfort measures offered. The patient was given the option to have a pulmonary consult, to continue BIPAP and treatment, is aware of imminent if not treated I examined this patient and my medical decision-making was reviewed with the Resident Physician. I agree with the documented findings, disposition and treatment plan as described except to the extent set forth below.
[2017-05-15] MEDS ORDERED: Lactulose Oral Soln 20 GM/30 ML UDC PO ONE (10:18)
[2017-05-15 12:11] LABS: ABG Base Excess -4 mEq/L (-2 to 3); ABG HCO3 24 mEq/L (21-27); ABG Oxygen Saturation 85 % (95-98); ABG PCO2 54 mmHg (35-45); ABG PH 7.26 pH Units (7.32-7.45); ABG PO2 59 mmHg (85-104); ABG TCO2 26 mEq/L (20-26)
[2017-05-15] MEDS: Famotidine 20 MG TABLET PO SCH ×2 (12:53→20:28)
[2017-05-15] MEDS ORDERED: 0.9 % Sodium Chloride 500 ML ONE (14:59)
[2017-05-15] MEDS: methylPREDNISolone 125 MG/2 ML VIAL IVP SCH (17:35)
[2017-05-15] MEDS: *HR* LORazepam 2 MG/ML VIAL IVP PRN ×2 (17:36→20:25)
[2017-05-16] MEDS: methylPREDNISolone 125 MG/2 ML VIAL IVP SCH ×3 (04:11→17:31)
[2017-05-16] MEDS: *HR* LORazepam 2 MG/ML VIAL IVP PRN ×3 (04:12→08:54)
[2017-05-16] MEDS: *HR* Heparin 5,000 UNIT/ML VIAL SQ SCH ×3 (04:12→22:18)
[2017-05-16] MEDS: *HR* Morphine 2 MG/ML SYRINGE IVP PRN ×2 (04:13→08:55)
[2017-05-16] MEDS: Ipratropium/Albuterol Neb 3 ML IH SCH ×5 (04:13→22:28)
--- NOTE | 2017-05-16 08:13 | Pulmonology Consult Note ---
<Shahzad Johnston - Last Filed: 05/16/17 11:09> Date of Encounter: 05/16/17 Time of Encounter: 08:12 History of Present Illness Consult date: 05/15/17 Requesting physician: Nilson Parry Reason for consult: COPD Chief complaint: SOB History of present illness: Ms. Kaye is a 71 year old female with a past medical history of COPD oxygen dependent using 3 L continuously, severe anxiety, hypertension, GERD, and recent discharge from the hospital on 05/12/2017 due to acute COPD exacerbation and pneumonia who came back complaining of severe abdominal pain provoked by coughing with green sputum production and increasing oxygen requirement. She was started on Zithromax by her PCP and continued to experience shortness of breath. During the past admission the patient was treated with Levaquin and was discharged home on a Prednisone taper. CT scan of the abdomen revealed mild bibasilar atelectasis or pneumonitis. Since admission, she completed 1 day of Levaquin and 2 days of Flagyl and is currently receiving Solumedrol IV, Duonebs , Bipap prn, and on on Rocephin (day 3). Her white blood cell count has decreased from 26.6 to 21.7 since starting Rocephin and creatinine has increased from 0.9 to 2.10. Patient denies any fevers, chills, CP, short of breath, nausea, vomiting, diarrhea, cramping, or sputum production. She is now resting comfortably in bedside chair on 5L humidified O2 with SpO2 93%. Resumed home Spiriva and added Symbicort. Of note, patient previously had sputum culture positive for Acinetobacter MDRO on 06/09/15 and is DNR-CC code status Past Med Surg Social Fam HX - Past Medical History Medical history: asthma, COPD (Oxygen dependent on 3 L continuously), GERD, hyperlipidemia, osteoporosis, other (Mild diastolic dysfunction, osteoporosis) Psychiatric history: anxiety (Severe anxiety), depression - Past Surgical History Surgical History: appendectomy, cholecystectomy, hysterectomy - Social History Smoking Status: Former smoker Smokeless Tobacco Status: No Alcohol use: none Drug use: none - Family History Mother Adopted: No Family Member Ethnicity: Non- Living Status: Hx Family Cardiac Disorders: No Hx Family Respiratory Disorders: No Hx Family Cancer: Yes Hx Family GI Disorders: No Hx Family Endocrine Disorder: No Hx Family Neuromuscular Disorders: No Hx Family Neurologic Disorders: No Hx Family HEENT Disorders: No Hx Family Autoimmune Disorders: No Father Adopted: No Living Status: Hx Family Cardiac Disorders: Yes (Brother- possible [place].) Hx Family Respiratory Disorders: Yes Hx Family Cancer: Yes Hx Family GI Disorders: Yes (multiple relatives r/t colon " problems") Brother Adopted: No Living Status: Hx Family Endocrine Disorder: Yes (dm) Medications and Allergies Albuterol Neb [Proventil Neb] 2.5 mg IH TID 02/07/15 [History] Albuterol Sulfate [Albuterol Inhaler] 2 puff IH Q4HR PRN 02/07/15 [History] Tiotropium [Spiriva] 18 mcg IH DAILY 02/07/15 [History] Acetylcysteine [W-Tdduib-x-Cysteine] 600 mg PO BID 09/16/15 [History] Ibandronate Sodium 150 mg PO QMONTH 02/16/16 [History] Alprazolam [Xanax] 1 mg PO BID PRN 08/24/16 [History] Aspirin Enteric Coated [Aspirin EC] 81 mg PO DAILY 08/24/16 [History] Atorvastatin [Lipitor] 10 mg PO HS 08/24/16 [History] Fluticasone/Salmeterol [Advair 500-50 Diskus] 1 puff IH BID 08/24/16 [History] Oxygen 3.5 l NS CONT 08/24/16 [History] Citalopram Hydrobromide [Citalopram HBr] 40 mg PO DAILY 02/28/17 [History] Fluticasone Propionate Nasal [Flonase] 50 mcg NS DAILY 02/28/17 [History] Loratadine [Claritin] 10 mg PO DAILY 02/28/17 [History] Montelukast [Singulair] 10 mg PO HS 02/28/17 [History] amLODIPine [Norvasc] 10 mg PO DAILY #14 tab 03/06/17 [Rx] predniSONE [PredniSONE] 5 mg PO DAILY #0 03/06/17 [Rx] Lisinopril [Zestril] 5 mg PO DAILY 05/09/17 [History] 3 Allergy/AdvReac Type Severity Reaction Status Date / Time No Known Allergies Allergy Verified 02/28/17 15:12 All Systems: A 10-system review of systems was performed and is negative for pertinent findings except as documented above in the HPI. - Constitutional Constitutional: lethargy, no chills, no fever(s) - EENT Nose, mouth and throat: no neck pain, no sinus pressure, no sore throat - Cardiovascular Cardiovascular: no dyspnea, no leg edema, no palpitations - Respiratory Respiratory: cough, no chest congestion, no pain with cough - Gastrointestinal Gastrointestinal: no abdominal pain, no diarrhea, no nausea, no vomiting - Genitourinary Genitourinary: no difficulty urinating, no dysuria, no urinary frequency - Musculoskeletal Musculoskeletal: no weakness, no neck pain, no stiffness - Integumentary Integumentary: no erythema, no rash - Neurological Neurological: no numbness, no weakness - Psychiatric Psychiatric: no anxiety, no depression - Endocrine Endocrine: no fatigue, no palpitations - Allergic/Immunologic Allergic/Immunologic: no wheezing Physical Examination Vital Signs: Vital Signs, Last 4 Hours Temp Pulse Resp BP Pulse Ox 05/16/17 06:48 97.6 F 80 18 92/49 96 05/16/17 04:21 97.6 F 81 22 133/65 94 05/16/17 04:13 22 121/60 93 General appearance: no acute distress, lethargic (sleepy sitting in bedside chair) Eyes: nonicteric ENT: oropharynx moist Mallampati (class): 3 Neck: supple, no JVD Effort: normal (on 5L humidified O2 via NC with SpO2 93%) Inspection: normal Auscultation: bilateral: wheezes Cardiovascular: regular rate and rhythm Gastrointestinal: normoactive bowel sounds, soft, non-tender Integumentary: normal Extremities: no edema, pink and warm Musculoskeletal: no deformities, ROM normal unable to assess due to mental status (sleepy) mood appropriate, affect normal Results - Laboratory Findings CBC and BMP: 05/15/17 02:46 05/15/17 02:46 ABG ABG pH 7.26 pH Units (7.32-7.45) L 05/15/17 12:09 ABG pCO2 54 mmHg (35-45) H 05/15/17 12:09 ABG pO2 59 mmHg (85-104) L 05/15/17 12:09 ABG O2 Saturation 85 % (95-98) L 05/15/17 12:09 Abnormal lab findings: Abnormal lab results WBC 21.7 K/mcL (4.3-11.1) H 05/15/17 02:46 RBC 3.70 M/mcL (3.82-4.97) L 05/15/17 02:46 Hgb 10.3 g/dL (11.5-15.4) L 05/15/17 02:46 Hct 33.6 % (35.3-44.9) L 05/15/17 02:46 MCH 27.8 pg (28.0-33.3) L 05/15/17 02:46 MCHC 30.7 g/dL (31.6-35.5) L 05/15/17 02:46 RDW 16.4 % (11.5-14.5) H 05/15/17 02:46 Neutrophils # 19.2 K/mcL (1.6-8.9) H 05/15/17 02:46 ABG pH 7.26 pH Units (7.32-7.45) L 05/15/17 12:09 ABG pCO2 54 mmHg (35-45) H 05/15/17 12:09 ABG pO2 59 mmHg (85-104) L 05/15/17 12:09 ABG O2 Saturation 85 % (95-98) L 05/15/17 12:09 ABG Base Excess -4 mEq/L (-2 to 3) L 05/15/17 12:09 Potassium 5.2 mEq/L (3.5-4.5) H 05/15/17 02:46 BUN 68 mg/dL (7-20) H D 05/15/17 02:46 Creatinine 2.10 mg/dL (0.57-1.11) H 05/15/17 02:46 Est GFR ( Amer) 28 (> 60) L 05/15/17 02:46 Est GFR (Non-Af Amer) 23 (> 60) L 05/15/17 02:46 BUN/Creatinine Ratio 32 (6-26) H 05/15/17 02:46 Calculated Osmolality 302 (280-300) H 05/15/17 02:46 Calcium 8.5 mg/dL (8.6-10.8) L 05/15/17 02:46 AST 64 Units/L (5-34) H 05/15/17 02:46 Albumin 2.8 g/dL (3.5-5.0) L 05/15/17 02:46 Globulin 3.6 g/dL (2.4-3.5) H 05/15/17 02:46 Albumin/Globulin Ratio 0.8 (1.1-2.2) L 05/15/17 02:46 - Diagnostic Findings Chest x-ray: report reviewed, image reviewed CT scan - chest: report reviewed, image reviewed - Clinical Findings Intake & Output: Intake & Output 05/15/17 05/16/17 05/16/17 23:59 07:59 15:59 Intake Total 240 / 240 0 / 0 Output Total 500 / 500 1050 / 1050 Balance -260 / -260 -1050 / -1050 Consult Discharge Plan - Plan Referrals: Ronel Arce MD [Primary Care Provider] - <MarianoRoberto Carlostriston Phillip - Last Filed: 05/16/17 13:27> Date of Encounter: 05/16/17 Assessment and Plan (1) Chronic respiratory failure Current Visit: No Status: Chronic This is a very pleasant 71-year-old female who is known to me from outpatient and she is being gradually deteriorating and she has advance lung disease which is terminal for her due to multiple exacerbations and poor quality of life. Patient is asking for palliative care which is very appropriate. Otherwise patient has been treated appropriately and I will add bronchodilators. Systemic steroid is indicated with noninvasive ventilation with the patient having problems. Patient is candidate for hospice. Thank you for the consultation and please call for any questions. Qualifiers: Respiratory failure complication: hypoxia Qualified Code(s): J96.11 - Chronic respiratory failure with hypoxia (2) COPD exacerbation Current Visit: Yes Status: Acute Patient has been treated appropriately and bronchodilators. Spiriva and Symbicort added to her treatment. All Systems: A 10-system review of systems was performed and is negative for pertinent findings except as documented above in the HPI. Physical Examination Vital Signs: Vital Signs, Last 4 Hours Temp Pulse Resp BP Pulse Ox 05/16/17 11:39 97.7 F 76 12 155/61 96 Results - Laboratory Findings CBC and BMP: 05/15/17 02:46 05/15/17 02:46 ABG ABG pH 7.26 pH Units (7.32-7.45) L 05/15/17 12:09 ABG pCO2 54 mmHg (35-45) H 05/15/17 12:09 ABG pO2 59 mmHg (85-104) L 05/15/17 12:09 ABG O2 Saturation 85 % (95-98) L 05/15/17 12:09 Abnormal lab findings: Abnormal lab results WBC 21.7 K/mcL (4.3-11.1) H 05/15/17 02:46 RBC 3.70 M/mcL (3.82-4.97) L 05/15/17 02:46 Hgb 10.3 g/dL (11.5-15.4) L 05/15/17 02:46 Hct 33.6 % (35.3-44.9) L 05/15/17 02:46 MCH 27.8 pg (28.0-33.3) L 05/15/17 02:46 MCHC 30.7 g/dL (31.6-35.5) L 05/15/17 02:46 RDW 16.4 % (11.5-14.5) H 05/15/17 02:46 Neutrophils # 19.2 K/mcL (1.6-8.9) H 05/15/17 02:46 ABG pH 7.26 pH Units (7.32-7.45) L 05/15/17 12:09 ABG pCO2 54 mmHg (35-45) H 05/15/17 12:09 ABG pO2 59 mmHg (85-104) L 05/15/17 12:09 ABG O2 Saturation 85 % (95-98) L 05/15/17 12:09 ABG Base Excess -4 mEq/L (-2 to 3) L 05/15/17 12:09 Potassium 5.2 mEq/L (3.5-4.5) H 05/15/17 02:46 BUN 68 mg/dL (7-20) H D 05/15/17 02:46 Creatinine 2.10 mg/dL (0.57-1.11) H 05/15/17 02:46 Est GFR ( Amer) 28 (> 60) L 05/15/17 02:46 Est GFR (Non-Af Amer) 23 (> 60) L 05/15/17 02:46 BUN/Creatinine Ratio 32 (6-26) H 05/15/17 02:46 Calculated Osmolality 302 (280-300) H 05/15/17 02:46 Calcium 8.5 mg/dL (8.6-10.8) L 05/15/17 02:46 AST 64 Units/L (5-34) H 05/15/17 02:46 Albumin 2.8 g/dL (3.5-5.0) L 05/15/17 02:46 Globulin 3.6 g/dL (2.4-3.5) H 05/15/17 02:46 Albumin/Globulin Ratio 0.8 (1.1-2.2) L 05/15/17 02:46 - Clinical Findings Intake & Output: Intake & Output 05/15/17 05/16/17 05/16/17 23:59 07:59 15:59 Intake Total 240 / 240 0 / 0 120 / 120 Output Total 500 / 500 1050 / 1050 300 / 300 Balance -260 / -260 -1050 / -1050 -180 / -180 - Attending Attestation I examined this patient and my medical decision-making was reviewed with the Resident Physician. I agree with the documented findings, disposition and treatment plan as described except to the extent set forth below. History of present illness an exam reviewed with the resident and assessment and plan was documented by me.
[2017-05-16] MEDS: Aspirin Enteric Coated 81 MG Tablet PO SCH (08:53)
[2017-05-16] MEDS: cefTRIAXone 1,000 MG in Water for inj. (sterile) 10 ML IVP SCH (08:53)
[2017-05-16] MEDS: amLODIPine 5 MG TABLET PO SCH (08:53)
[2017-05-16] MEDS: Famotidine 20 MG TABLET PO SCH ×2 (08:54→19:56)
--- NOTE | 2017-05-16 14:51 | Palliative - Consult Note ---
Date of Encounter: 05/16/17 Time of Encounter: 14:50 - Assessment and Plan (1) Dyspnea Current Visit: Yes Status: Acute Assessment and plan: Patient has refused IV placement - access was lost this am. Will transition Morphine to SL Roxanol and adjust as needed. Qualifiers: Dyspnea type: unspecified Qualified Code(s): R06.00 - Dyspnea, unspecified (2) Anxiety Current Visit: Yes Status: Acute Assessment and plan: Transition to oral concentrate Lorazepam and monitor. (3) Counseling regarding advanced care planning and goals of care Current Visit: Yes Status: Acute Assessment and plan: Met with pt, her son Александр, and friend Charley. Discussed goals of care. Patient is comfort care, and does not want further aggressive medical treatment. Patient does not have 24/7 caregivers at home, and cannot care for herself. She is agreeable to placement. Social service verifying insurance. If she truly has Medicaid, she can transition with hospice care at [facility]. Family is planning on getting together tonight to decide on facility preference, and he is supposed to call me in the am when he arrives with facility decision. Once the above complete - we can get her set up with hospice at [facility]. Will f/u in am. (4) Acute exacerbation of chronic obstructive airways disease Current Visit: No Status: Resolved Palliative-CN HPI - Data of Consult Requesting Physician: Lei Sanchez Primary Care Provider: Ronel Arce - Consult Narrative History of present illness: Ms. Kaye is a 71 year old female th a past medical history of COPD oxygen dependent using 3 L continuously, severe anxiety, hypertension, GERD, and recent discharge from the hospital on 05/12/2017 due to acute COPD exacerbation and pneumonia who was readmitted for abd pain and shortness of breath. She was started on Zithromax by her PCP and continued to experience shortness of breath. During the past admission the patient was treated with Levaquin and was discharged home on a Prednisone taper. CT scan of the abdomen revealed mild bibasilar atelectasis or pneumonitis. She just today had a very large bowel movement, and abd pain is improved. Pulmonology saw pt today and appreciate recommendations. She has refused any further testing yesterday and today, and stating she just wants to be comfortable. Upon my visit, she appears dyspneic. She has difficulty speaking, and keeps eyes closed during conversations and questioning. No family at the bedside at the time of my first visit. She denies pain at this time, just states she is tired. Attempting to contact son. CC: Lei Sanchez Past Med Surg Social Fam HX - Past Medical History Medical history: asthma, COPD (Oxygen dependent on 3 L continuously), GERD, hyperlipidemia, osteoporosis, other (Mild diastolic dysfunction, osteoporosis) Psychiatric history: anxiety (Severe anxiety), depression - Past Surgical History Surgical History: appendectomy, cholecystectomy, hysterectomy - Social History Smoking Status: Former smoker Smokeless Tobacco Status: No Alcohol use: none Drug use: none - Family History Mother Adopted: No Family Member Ethnicity: Non- Living Status: Hx Family Cardiac Disorders: No Hx Family Respiratory Disorders: No Hx Family Cancer: Yes Hx Family GI Disorders: No Hx Family Endocrine Disorder: No Hx Family Neuromuscular Disorders: No Hx Family Neurologic Disorders: No Hx Family HEENT Disorders: No Hx Family Autoimmune Disorders: No Father Adopted: No Living Status: Hx Family Cardiac Disorders: Yes (Brother- possible [place].) Hx Family Respiratory Disorders: Yes Hx Family Cancer: Yes Hx Family GI Disorders: Yes (multiple relatives r/t colon " problems") Brother Adopted: No Living Status: Hx Family Endocrine Disorder: Yes (dm) Medications and Allergies Albuterol Neb [Proventil Neb] 2.5 mg IH TID 02/07/15 [History] Albuterol Sulfate [Albuterol Inhaler] 2 puff IH Q4HR PRN 02/07/15 [History] Tiotropium [Spiriva] 18 mcg IH DAILY 02/07/15 [History] Acetylcysteine [F-Tixirf-a-Cysteine] 600 mg PO BID 09/16/15 [History] Ibandronate Sodium 150 mg PO QMONTH 02/16/16 [History] Alprazolam [Xanax] 1 mg PO BID PRN 08/24/16 [History] Aspirin Enteric Coated [Aspirin EC] 81 mg PO DAILY 08/24/16 [History] Atorvastatin [Lipitor] 10 mg PO HS 08/24/16 [History] Fluticasone/Salmeterol [Advair 500-50 Diskus] 1 puff IH BID 08/24/16 [History] Oxygen 3.5 l NS CONT 08/24/16 [History] Citalopram Hydrobromide [Citalopram HBr] 40 mg PO DAILY 02/28/17 [History] Fluticasone Propionate Nasal [Flonase] 50 mcg NS DAILY 02/28/17 [History] Loratadine [Claritin] 10 mg PO DAILY 02/28/17 [History] Montelukast [Singulair] 10 mg PO HS 02/28/17 [History] amLODIPine [Norvasc] 10 mg PO DAILY #14 tab 03/06/17 [Rx] predniSONE [PredniSONE] 5 mg PO DAILY #0 03/06/17 [Rx] Lisinopril [Zestril] 5 mg PO DAILY 05/09/17 [History] 3 Allergy/AdvReac Type Severity Reaction Status Date / Time No Known Allergies Allergy Verified 02/28/17 15:12 ROS unobtainable: due to mental status Palliative Care-Exam - Constitutional Vitals: Temp Pulse Resp BP Pulse Ox 97.7 F 76 12 155/61 96 05/16/17 11:39 05/16/17 11:39 05/16/17 11:39 05/16/17 11:39 05/16/17 11:39 - Head Head Exam: Present: normal inspection, normocephalic - Respiratory Respiratory exam: Present: decreased breath sounds, CTAB Additional comments: Course rhonchi throughout - Cardiovascular Cardiovascular exam: Present: +S1, +S2 - GI/Abdominal Exam GI/Abdominal exam: Present: distended, normal bowel sounds, soft - Extremities Exam Extremities exam: Present: normal capillary refill, normal inspection - Neurological Exam Neurological exam: Present: alert Additional comments: Oriented to name and place. - Skin Skin exam: Present: dry, pallor, warm Internal Medicine - CN: Reslt - Labs CBC & Chem 7: 05/15/17 02:46 05/15/17 02:46 - ABG Interpretation ABG results: ABG ABG pH 7.26 pH Units (7.32-7.45) L 05/15/17 12:09 ABG pCO2 54 mmHg (35-45) H 05/15/17 12:09 ABG pO2 59 mmHg (85-104) L 05/15/17 12:09 ABG O2 Saturation 85 % (95-98) L 05/15/17 12:09 Consult Discharge Plan - Plan Referrals: Ronel Arce MD [Primary Care Provider] - Palliative Quality Palliative Quality: Screen for Code Status: Yes, Screen for Goals of Care: Yes, Screen for Pain: Yes, If Pain Regimen Started, Initiate Bowel Regimen: Yes, Screen for Nausea/Vomitting: Yes Code Status: 05/13/17 09:41 Resuscitation Status: Active [RES] Routine Comment: Resuscitation Status: DNR-Comfort Care
[2017-05-16] MEDS: *HR* LORazepam Oral Conc 2 MG/ML SL PRN (15:16)
[2017-05-16] MEDS: Morphine Oral CONC 5 MG/0.25 ML ORAL.SYG PO PRN (15:24)
[2017-05-16] MEDS: Tiotropium 18 MCG inhalation IH SCH (15:51)
[2017-05-16] MEDS: Budesonide/Formoterol 160/4.5 MDI IH SCH ×2 (15:52→22:29)
[2017-05-16] MEDS: Acetylcysteine 10% 2 ML INHSOL IH SCH ×2 (15:55→22:29)
--- NOTE | 2017-05-16 18:22 | Internal Med Progress Note ---
Date of Encounter: 05/16/17 Time of Encounter: 11:00 - Assessment and plan (1) Acute exacerbation of chronic obstructive airways disease Current Visit: No Status: Resolved Assessment and plan: -Patient was being treated for COPD exacerbation but now elects for palliative/ hospice care. (2) Acute kidney injury superimposed on chronic kidney disease Current Visit: Yes Status: Acute Assessment and plan: -Patient/family elects for palliative/hospice care as below (3) Counseling regarding advanced care planning and goals of care Current Visit: Yes Status: Acute Assessment and plan: -Palliative care was consulted goals of care was discussed with family who elects for hospice care. (4) DVT prophylaxis Current Visit: No Status: Acute Assessment and plan: Heparin SQ - Subjective Interval history: No acute events overnight. - Constitutional Vitals: Temp Pulse Resp BP Pulse Ox 98.2 F 82 20 148/70 94 05/16/17 14:53 05/16/17 14:53 05/16/17 15:55 05/16/17 14:53 05/16/17 15:55 General appearance: Present: mild distress, A&O X 3, obese - Cardiovascular Cardiovascular exam: Present: RRR, +S1, +S2. Absent: diastolic murmur, gallop, rubs, systolic murmur Internal Medicine: Result - Labs CBC & Chem 7: 05/15/17 02:46 05/15/17 02:46 - ABG Interpretation ABG results: ABG ABG pH 7.26 pH Units (7.32-7.45) L 05/15/17 12:09 ABG pCO2 54 mmHg (35-45) H 05/15/17 12:09 ABG pO2 59 mmHg (85-104) L 05/15/17 12:09 ABG O2 Saturation 85 % (95-98) L 05/15/17 12:09 Consult Discharge Plan - Plan Referrals: Ronel Arce MD [Primary Care Provider] -
[2017-05-16] MEDS: Lactulose Oral Soln 20 GM/30 ML UDC PO SCH (19:56)
[2017-05-17] MEDS: methylPREDNISolone 125 MG/2 ML VIAL IVP SCH ×3 (00:02→08:39)
[2017-05-17] MEDS: Morphine Oral CONC 5 MG/0.25 ML ORAL.SYG PO PRN ×3 (03:26→20:04)
[2017-05-17] MEDS: Ipratropium/Albuterol Neb 3 ML IH SCH ×4 (04:42→23:09)
[2017-05-17] MEDS: Acetylcysteine 10% 2 ML INHSOL IH SCH ×4 (04:43→23:09)
[2017-05-17] MEDS: *HR* Heparin 5,000 UNIT/ML VIAL SQ SCH ×3 (05:43→21:34)
[2017-05-17] MEDS: Budesonide/Formoterol 160/4.5 MDI IH SCH ×2 (08:23→23:10)
[2017-05-17] MEDS: Tiotropium 18 MCG inhalation IH SCH (08:25)
[2017-05-17] MEDS: cefTRIAXone 1,000 MG in Water for inj. (sterile) 10 ML IVP SCH (08:39)
[2017-05-17] MEDS: Aspirin Enteric Coated 81 MG Tablet PO SCH (08:43)
[2017-05-17] MEDS: Famotidine 20 MG TABLET PO SCH ×2 (08:43→20:04)
[2017-05-17] MEDS: amLODIPine 5 MG TABLET PO SCH (08:43)
--- NOTE | 2017-05-17 08:53 | Pulmonology Progress Note ---
Date of Encounter: 05/17/17 Time of Encounter: 08:15 Assessment and Plan (1) Chronic respiratory failure Current Visit: No Status: Chronic One more time overall prognosis is very poor and patient is on appropriate treatment. Awaiting family meeting with palliative care. Discussed with palliative care team. Decrease FiO2 to keep SPO2 around 90%. Qualifiers: Respiratory failure complication: hypoxia Qualified Code(s): J96.11 - Chronic respiratory failure with hypoxia (2) COPD exacerbation Current Visit: Yes Status: Acute Subjective Principal diagnosis: Shortness of breath Interval history: Significant changes and patient has seen by palliative care. Awaiting family meeting. Objective PUL Vital signs: Last Vital Signs Temp 97.9 F 05/17/17 06:47 Pulse 92 05/17/17 06:47 Resp 18 05/17/17 08:22 BP 178/77 05/17/17 06:47 Pulse Ox 95 05/17/17 08:22 General appearance: lethargic Eyes: nonicteric ENT: oropharynx dry Mallampati (class): 3 Neck: supple Effort: normal Auscultation: bilateral: diminished breath sounds Percussion: bilateral: not dull Cardiovascular: regular rate and rhythm Gastrointestinal: normoactive bowel sounds, non-distended Extremities: no cyanosis pupils equal and round depressed Results - Laboratory Findings CBC and BMP: 05/15/17 02:46 05/15/17 02:46 ABG ABG pH 7.26 pH Units (7.32-7.45) L 05/15/17 12:09 ABG pCO2 54 mmHg (35-45) H 05/15/17 12:09 ABG pO2 59 mmHg (85-104) L 05/15/17 12:09 ABG O2 Saturation 85 % (95-98) L 05/15/17 12:09 Abnormal lab findings: Abnormal lab results WBC 21.7 K/mcL (4.3-11.1) H 05/15/17 02:46 RBC 3.70 M/mcL (3.82-4.97) L 05/15/17 02:46 Hgb 10.3 g/dL (11.5-15.4) L 05/15/17 02:46 Hct 33.6 % (35.3-44.9) L 05/15/17 02:46 MCH 27.8 pg (28.0-33.3) L 05/15/17 02:46 MCHC 30.7 g/dL (31.6-35.5) L 05/15/17 02:46 RDW 16.4 % (11.5-14.5) H 05/15/17 02:46 Neutrophils # 19.2 K/mcL (1.6-8.9) H 05/15/17 02:46 ABG pH 7.26 pH Units (7.32-7.45) L 05/15/17 12:09 ABG pCO2 54 mmHg (35-45) H 05/15/17 12:09 ABG pO2 59 mmHg (85-104) L 05/15/17 12:09 ABG O2 Saturation 85 % (95-98) L 05/15/17 12:09 ABG Base Excess -4 mEq/L (-2 to 3) L 05/15/17 12:09 Potassium 5.2 mEq/L (3.5-4.5) H 05/15/17 02:46 BUN 68 mg/dL (7-20) H D 05/15/17 02:46 Creatinine 2.10 mg/dL (0.57-1.11) H 05/15/17 02:46 Est GFR ( Amer) 28 (> 60) L 05/15/17 02:46 Est GFR (Non-Af Amer) 23 (> 60) L 05/15/17 02:46 BUN/Creatinine Ratio 32 (6-26) H 05/15/17 02:46 Calculated Osmolality 302 (280-300) H 05/15/17 02:46 Calcium 8.5 mg/dL (8.6-10.8) L 05/15/17 02:46 AST 64 Units/L (5-34) H 05/15/17 02:46 Albumin 2.8 g/dL (3.5-5.0) L 05/15/17 02:46 Globulin 3.6 g/dL (2.4-3.5) H 05/15/17 02:46 Albumin/Globulin Ratio 0.8 (1.1-2.2) L 05/15/17 02:46 - Clinical Findings Intake & Output: Intake & Output 05/16/17 05/17/17 05/17/17 23:59 07:59 15:59 Intake Total 0 / 0 0 / 0 Output Total 425 / 425 800 / 800 Balance -425 / -425 -800 / -800 Weight 81 kg Consult Discharge Plan - Plan Referrals: Ronel Arce MD [Primary Care Provider] -
--- NOTE | 2017-05-17 09:33 | Palliative Progress Note ---
Date of Encounter: 05/17/17 Time of Encounter: 09:20 - Assessment and plan (1) Dyspnea Current Visit: Yes Status: Acute Assessment and plan: Continue Roxanol SL - has received x 3 last 24 hours, Duonebs/mucomyst/oxygen support. She refuses bipap Qualifiers: Dyspnea type: unspecified Qualified Code(s): R06.00 - Dyspnea, unspecified (2) Anxiety Current Visit: Yes Status: Acute (3) Counseling regarding advanced care planning and goals of care Current Visit: Yes Status: Acute Assessment and plan: Awaiting family to arrive to call. They were supposed to meet and discuss which ECF they would like pt to go to. Once that is established, can contact whatever hospice agency has contracts with that facility. Will f/u when family arrives. (4) Acute exacerbation of chronic obstructive airways disease Current Visit: No Status: Resolved - Time Spent With Patient Total time spent is greater than 50% in coordination of care (as documented) at patient's floor/unit and/or counseling patient: 25 - 35 minutes - Subjective Interval history: Patient resting with eyes closed - does awaken and respond when spoken to. I attempted to feed her breakfast, but only ate a few bites. Denies pain. Appears quite dyspneic. Recently had Roxanol. No family present - Constitutional Vitals: Abnormal lab results WBC 21.7 K/mcL (4.3-11.1) H 05/15/17 02:46 RBC 3.70 M/mcL (3.82-4.97) L 05/15/17 02:46 Hgb 10.3 g/dL (11.5-15.4) L 05/15/17 02:46 Hct 33.6 % (35.3-44.9) L 05/15/17 02:46 MCH 27.8 pg (28.0-33.3) L 05/15/17 02:46 MCHC 30.7 g/dL (31.6-35.5) L 05/15/17 02:46 RDW 16.4 % (11.5-14.5) H 05/15/17 02:46 Neutrophils # 19.2 K/mcL (1.6-8.9) H 05/15/17 02:46 ABG pH 7.26 pH Units (7.32-7.45) L 05/15/17 12:09 ABG pCO2 54 mmHg (35-45) H 05/15/17 12:09 ABG pO2 59 mmHg (85-104) L 05/15/17 12:09 ABG O2 Saturation 85 % (95-98) L 05/15/17 12:09 ABG Base Excess -4 mEq/L (-2 to 3) L 05/15/17 12:09 Potassium 5.2 mEq/L (3.5-4.5) H 05/15/17 02:46 BUN 68 mg/dL (7-20) H D 05/15/17 02:46 Creatinine 2.10 mg/dL (0.57-1.11) H 05/15/17 02:46 Est GFR ( Amer) 28 (> 60) L 05/15/17 02:46 Est GFR (Non-Af Amer) 23 (> 60) L 05/15/17 02:46 BUN/Creatinine Ratio 32 (6-26) H 05/15/17 02:46 Calculated Osmolality 302 (280-300) H 05/15/17 02:46 Calcium 8.5 mg/dL (8.6-10.8) L 05/15/17 02:46 AST 64 Units/L (5-34) H 05/15/17 02:46 Albumin 2.8 g/dL (3.5-5.0) L 05/15/17 02:46 Globulin 3.6 g/dL (2.4-3.5) H 05/15/17 02:46 Albumin/Globulin Ratio 0.8 (1.1-2.2) L 05/15/17 02:46 General appearance: Present: mild distress - Respiratory Respiratory exam: Present: decreased breath sounds, CTAB - Cardiovascular Cardiovascular exam: Present: +S1, +S2, tachycardia - GI/Abdominal GI/Abdominal exam: Present: normal bowel sounds, soft - Extremities Exam Extremities exam: Present: normal capillary refill, normal inspection - Neurological Exam Neurological exam: Present: alert Additional comments: Responds to occasional questions appropriately, unable to follow commands. Is oreinted to name and place - Skin Skin exam: Present: dry, pallor Palliative Quality Palliative Quality: Screen for Code Status: Yes, Screen for Goals of Care: Yes, Screen for Pain: Yes, If Pain Regimen Started, Initiate Bowel Regimen: Yes, Screen for Nausea/Vomitting: Yes Code Status: 05/13/17 09:41 Resuscitation Status: Active [RES] Routine Comment: Resuscitation Status: DNR-Comfort Care - Labs CBC & Chem 7: 05/15/17 02:46 05/15/17 02:46 - ABG Interpretation ABG results: ABG ABG pH 7.26 pH Units (7.32-7.45) L 05/15/17 12:09 ABG pCO2 54 mmHg (35-45) H 05/15/17 12:09 ABG pO2 59 mmHg (85-104) L 05/15/17 12:09 ABG O2 Saturation 85 % (95-98) L 05/15/17 12:09 Consult Discharge Plan - Plan Referrals: Ronel Arce MD [Primary Care Provider] - 05/24/17 11:00 am
--- NOTE | 2017-05-17 17:19 | Discharge Summary ---
Date of Encounter: 05/17/17 Time of Encounter: 11:00 - Discharge Diagnosis (1) Acute kidney injury superimposed on chronic kidney disease Priority: Secondary Status: Acute (2) Counseling regarding advanced care planning and goals of care Priority: Primary Status: Acute - Discharge Medications Prescriptions: LORazepam Oral Conc [Ativan Oral Conc] 1 mg PO Q4H PRN #30 mls PRN Reason: Anxiety Morphine Oral CONC [Roxanol] 0.25 - 0.5 ml PO Q4H PRN #30 ml PRN Reason: pain/dyspnea Home Medications: Albuterol Neb [Proventil Neb] 2.5 mg IH TID 02/07/15 [History] Albuterol Sulfate [Albuterol Inhaler] 2 puff IH Q4HR PRN 02/07/15 [History] Tiotropium [Spiriva] 18 mcg IH DAILY 02/07/15 [History] Acetylcysteine [R-Fkxsik-l-Cysteine] 600 mg PO BID 09/16/15 [History] Ibandronate Sodium 150 mg PO QMONTH 02/16/16 [History] Alprazolam [Xanax] 1 mg PO BID PRN 08/24/16 [History] Aspirin Enteric Coated [Aspirin EC] 81 mg PO DAILY 08/24/16 [History] Atorvastatin [Lipitor] 10 mg PO HS 08/24/16 [History] Fluticasone/Salmeterol [Advair 500-50 Diskus] 1 puff IH BID 08/24/16 [History] Oxygen 3.5 l NS CONT 08/24/16 [History] Citalopram Hydrobromide [Citalopram HBr] 40 mg PO DAILY 02/28/17 [History] Fluticasone Propionate Nasal [Flonase] 50 mcg NS DAILY 02/28/17 [History] Loratadine [Claritin] 10 mg PO DAILY 02/28/17 [History] Montelukast [Singulair] 10 mg PO HS 02/28/17 [History] amLODIPine [Norvasc] 10 mg PO DAILY #14 tab 03/06/17 [Rx] predniSONE [PredniSONE] 5 mg PO DAILY #0 03/06/17 [Rx] Lisinopril [Zestril] 5 mg PO DAILY 05/09/17 [History] LORazepam Oral Conc [Ativan Oral Conc] 1 mg PO Q4H PRN #30 mls 05/17/17 [Rx] Morphine Oral CONC [Roxanol] 0.25 - 0.5 ml PO Q4H PRN #30 ml 05/17/17 [Rx] Allergies/Adverse Reactions: 3 Allergy/AdvReac Type Severity Reaction Status Date / Time No Known Allergies Allergy Verified 02/28/17 15:12 Date of admission: 05/15/17 12:55 Primary care physician: Ronel Arce Consults: 05/15/17 15:52 Consult to Pulmonology [CONS] Routine Consulting Provider: Pulm [facility] Reason for Consult: end stage COPD, BiPAP depent, worsening respiratory status, but she is DNI Call Completed: Yes 05/15/17 16:36 Consult to Palliative Care [CONS] Routine Comment: Consulting Provider: Palliative Care Ce Reason for Consult: DNR CC, patient wants to remain comfortable, possible transfer to hospice Call Completed: Yes - Patient Status Disposition: Hospice - Medical Facility Condition: Undetermined - Discharge Instructions Follow Up With: Ronel Arce MD [Primary Care Provider] - 05/24/17 11:00 am Hospital course: Patient is a 71-year-old female with past medical history significant for end- stage COPD O2 dependent, mood disorder, hypertension and GERD who was recently just discharged for COPD exacerbation on 05/12/17 who re-presented with shortness of breath and abdominal pain. In the ER, abdominal CT showed no acute abnormalities. She was admitted for COPD exacerbation and further evaluation of abdominal pain. During patients hospital stay however, patient decided to withdraw all forms of medical care and decided to become a DNR CC. Patient and family also decided to consult palliative/hospice care due to patients poor prognosis with end-stage COPD. Patient will be transferred to an ECF with hospice care. - Time Spent with Patient Total time spent providing and/or coordinating discharge services: Less than 30 minutes - Constitutional Vitals: Temp Pulse Resp BP Pulse Ox 98.4 F 90 18 167/78 95 05/17/17 15:35 05/17/17 15:35 05/17/17 15:58 05/17/17 15:35 05/17/17 15:58 General appearance: Present: mild distress, A&O X 3, obese - Cardiovascular Cardiovascular exam: Present: RRR, +S1, +S2. Absent: diastolic murmur, gallop, rubs, systolic murmur
[2017-05-17] MEDS: Lactulose Oral Soln 20 GM/30 ML UDC PO SCH (20:04)
[2017-05-17] MEDS: *HR* LORazepam Oral Conc 2 MG/ML SL PRN (21:35)
[2017-05-17] MEDS ORDERED: Morphine Oral CONC 5 MG/0.25 ML ORAL.SYG PO PRN (22:10)
[2017-05-17] MEDS ORDERED: *HR* Morphine 2 MG/ML SYRINGE IVP PRN (22:32)
[2017-05-18] MEDS: Acetylcysteine 10% 2 ML INHSOL IH SCH ×3 (04:25→15:57)
[2017-05-18] MEDS: Ipratropium/Albuterol Neb 3 ML IH SCH ×3 (04:25→15:57)
[2017-05-18] MEDS: *HR* Heparin 5,000 UNIT/ML VIAL SQ SCH (06:50)
[2017-05-18] MEDS: *HR* LORazepam Oral Conc 2 MG/ML SL PRN ×3 (10:12→18:43)
[2017-05-18] MEDS: Budesonide/Formoterol 160/4.5 MDI IH SCH (10:47)
[2017-05-18] MEDS: Tiotropium 18 MCG inhalation IH SCH (10:48)
[2017-05-18] MEDS: Aspirin Enteric Coated 81 MG Tablet PO SCH (11:04)
[2017-05-18] MEDS: Famotidine 20 MG TABLET PO SCH (11:05)
[2017-05-18] MEDS: amLODIPine 5 MG TABLET PO SCH (11:05)
[2017-05-18] MEDS: Morphine Oral CONC 5 MG/0.25 ML ORAL.SYG SL PRN ×2 (12:34→18:42)
--- NOTE | 2017-05-18 14:47 | Physician Discharge Referral ---
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 - Diagnosis (1) Acute kidney injury superimposed on chronic kidney disease Status: Acute (2) Counseling regarding advanced care planning and goals of care Status: Acute - Transfer Medications Prescriptions: LORazepam Oral Conc [Ativan Oral Conc] 1 mg PO Q4H PRN #30 mls PRN Reason: Anxiety Morphine Oral CONC [Roxanol] 0.25 - 0.5 ml PO Q4H PRN #30 ml PRN Reason: pain/dyspnea Home Medications: Albuterol Neb [Proventil Neb] 2.5 mg IH TID 02/07/15 [History] Albuterol Sulfate [Albuterol Inhaler] 2 puff IH Q4HR PRN 02/07/15 [History] Tiotropium [Spiriva] 18 mcg IH DAILY 02/07/15 [History] Acetylcysteine [K-Tirsom-w-Cysteine] 600 mg PO BID 09/16/15 [History] Ibandronate Sodium 150 mg PO QMONTH 02/16/16 [History] Alprazolam [Xanax] 1 mg PO BID PRN 08/24/16 [History] Aspirin Enteric Coated [Aspirin EC] 81 mg PO DAILY 08/24/16 [History] Atorvastatin [Lipitor] 10 mg PO HS 08/24/16 [History] Fluticasone/Salmeterol [Advair 500-50 Diskus] 1 puff IH BID 08/24/16 [History] Oxygen 3.5 l NS CONT 08/24/16 [History] Citalopram Hydrobromide [Citalopram HBr] 40 mg PO DAILY 02/28/17 [History] Fluticasone Propionate Nasal [Flonase] 50 mcg NS DAILY 02/28/17 [History] Loratadine [Claritin] 10 mg PO DAILY 02/28/17 [History] Montelukast [Singulair] 10 mg PO HS 02/28/17 [History] amLODIPine [Norvasc] 10 mg PO DAILY #14 tab 03/06/17 [Rx] predniSONE [PredniSONE] 5 mg PO DAILY #0 03/06/17 [Rx] Lisinopril [Zestril] 5 mg PO DAILY 05/09/17 [History] LORazepam Oral Conc [Ativan Oral Conc] 1 mg PO Q4H PRN #30 mls 05/17/17 [Rx] Morphine Oral CONC [Roxanol] 0.25 - 0.5 ml PO Q4H PRN #30 ml 05/17/17 [Rx] Allergies/Adverse Reactions: 3 Allergy/AdvReac Type Severity Reaction Status Date / Time No Known Allergies Allergy Verified 02/28/17 15:12 - Respiratory Orders Oxygen / L per min ( Palliative care with nasal cannula suppemental oxygen to keep sats above 92%) Smoking Cessation: Smoking cessation has been advised. For more information, call the [place] Tobacco Quit Line at 3-851-URPENOW. CERTIFICATION: I certify that the transfer of the above named patient to an Extended Care Facility is necessary for the continuing treatment of the diagnosis listed. The above information is true and accurate reflection of patient's current condition. Confidential - Redisclosure prohibited without a patient's written consent.
[2017-05-18 17:16] VITALS: BP 179/90
[2017-05-18] MEDS ORDERED: Famotidine 20 MG TABLET PO SCH (21:00)
--- NOTE | 2017-05-19 07:48 | Event Note ---
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 Start: 05/18/2017 Hospice benefit. In: +90 days Palliative performance scale: 30% History: The patient has end-stage COPD. Been repeatedly hospitalized for this especially over the last several months. Also having abdominal pain. She and family opted for no further aggressive care. In the patient continues to be in a rather steep downward decline. Now able to only answer with one word answers and not taking any significant oral intake at this time therefore I believe that These findings support a life expectancy of 6 months or less. I attest that I have compose the above narrative based on my review of the patient's medical records, and or on my examination of the patient. Jamie Lackey M.D. Associate medical record transcriber. [facility]
== END 2017-05-18 19:16 | disposition hospice, inpatient (51) | DRG 191 ==
LOC: 2NENU 04:30 → EMEROO 04:30 → 2NENU 09:00 → SUATTDRO 05-15 12:55
PROVIDERS: ADMIT Internal Medicine; ATTEND Hospitalist